=== PATIENT | female | born 1965 | race Caucasian/White ===

== ENCOUNTER → 2016-08-15 | Outpatient (CLI) | payer OTHER ==
--- NOTE | 2016-08-15 16:41 | BD ---
EXAMINATION TYPE: MG DEXA axial skeleton. DATE OF EXAM: 08/15/2016 4:28 PM COMPARISON: NONE CLINICAL HISTORY: 51-year-old female postmenopausal screening Height: 5 FT 6 IN Weight: 177 FRAX RISK QUESTIONS: Alcohol (3 or more units per day): YES Family History (Parent hip fracture): NO Glucocorticoids (More than 3mos): NO (Ex: prednisone, prednisolone, methylprednisolone, dexamethasone, and hydrocortisone). History of Fracture in Adulthood: YES Secondary Osteoporosis: 1. Type 1 Diabetes: NO 2. Hyperthyroidism: NO 3. Menopause before 45: AGE 50 4. Malnutrition: NO 5. Chronic liver disease: NO Rheumatoid Arthritis: NO Current Tobacco Use: YES RISK FACTORS HISTORY OF: Surgery to Spine/Hip(right/left)/Wrist (right/left): LUMBAR SURG X2 When: 2008 Smoke tobacco: YES Drink Alcohol: YES Active: YES Postmenopausal woman: AGE 50 MEDICATIONS: Additional Medications: VIT B , VIT D , FOLIC ACID, LISINOPRIL, CELEXA, Additional History: EXAM MEASUREMENTS: Bone mineral densitometry was performed using the ZENTICKET System. Bone mineral density as measured about the Lumbar spine is: ----- L1-L4(G/cm2): 1.355 T Score Values are as follows: ----- L2: 1.0 ----- L3: 1.6 ----- L4: 2.5 ----- L1-L4: 1.5 BASELINE Bone mineral density about the R hip (g/cm2): 1.048 Bone mineral density about the L hip (g/cm2): 1.068 T Score values are as follows: -----R Neck: 0.1 -----L Neck: 0.2 -----R Intertrochanter: -0.1 -----L Intertrochanter: 0.8 BASELINE IMPRESSION: Normal (Values between +1 and -1 indicate normal bone mass) Rescreen in 5 years. NOTE: T-SCORE=SD OF THE YOUNG ADULT MEAN.
--- NOTE | 2016-08-18 11:23 | MM ---
Reason for exam: screening (asymptomatic). Last mammogram was performed 1 year and 8 months ago. History: Patient is postmenopausal. Physical Findings: A clinical breast exam by your physician is recommended on an annual basis and results should be correlated with mammographic findings. MG Screening Mammo w CAD Bilateral CC and MLO view(s) were taken. Prior study comparison: December 04, 2014, bilateral MG screening mammo w CAD. The breast tissue is heterogeneously dense. This may lower the sensitivity of mammography. No significant changes when compared with prior studies. ASSESSMENT: Benign, BI-RAD 2 RECOMMENDATION: Routine screening mammogram of both breasts in 1 year.
== END | disposition home or self-care (01) ==
LOC: RADMAMWWP 15:31
PROVIDERS: ATTEND Internal Medicine
DX: Z12.31 Encounter for screening mammogram for malignant neoplasm of breast (principal); N95.1 Menopausal and female climacteric states
CPT/HCPCS: 77080; G0202

== ENCOUNTER 2017-10-22 22:28 | Emergency (ER) | payer OTHER ==
[2017-10-22 22:42] VITALS: RESP 18
[2017-10-22] MEDS ORDERED: SODIUM CHLORIDE 0.9% 1,000 ML IV STA ×2 (23:36)
[2017-10-22 23:47] LABS: Basophils % (A) 1 %; Eosinophils # (A) 0.1 k/uL (0-0.7); Eosinophils % (A) 1 %; HCT 39.3 % (34.0-46.0); HGB 13.1 gm/dL (11.4-16.0); Lymphocytes # (A) 1.7 k/uL (1.0-4.8); Lymphocytes % (A) 34 %; MCH 33.6 pg (25.0-35.0); MCHC 33.2 g/dL (31.0-37.0); MCV 101.2 fL (80.0-100.0); Mean Platelet Volume 7.7; Monocytes # (A) 0.4 k/uL (0-1.0); Monocytes % (A) 8 %; Neutrophils # (A) 2.6 k/uL (1.3-7.7); Neutrophils % (A) 54 %; Platelet Count 143 k/uL (150-450); RBC 3.89 m/uL (3.80-5.40); RDW 12.7 % (11.5-15.5); WBC 4.8 k/uL (3.8-10.6)
[2017-10-22 23:52] LABS: Appearance,Urine Clear (Clear); Bilirubin,Urine Negative (Negative); Blood,Urine Negative (Negative); Color,Urine Colorless; Glucose,Urine (UA) Negative (Negative); Ketones,Urine Negative (Negative); Leukocyte Esterase,Urine Negative (Negative); Nitrite,Urine Negative (Negative); PH, Urine 5.5 (5.0-8.0); Protein,Urine Negative (Negative); Specific Gravity,Urine 1.002 (1.001-1.035); Urobilinogen,Urine <2.0 mg/dL (<2.0)
[2017-10-22 23:55] LABS: ALT 68 U/L (9-52); AST 89 U/L (14-36); Albumin 4.5 g/dL (3.5-5.0); Alkaline Phosphatase 63 U/L (38-126); Amylase <30 U/L (30-110); Anion Gap 16 mmol/L; Blood Urea Nitrogen 3 mg/dL (7-17); Calcium 9.4 mg/dL (8.4-10.2); Carbon Dioxide 22 mmol/L (22-30); Chloride 95 mmol/L (98-107); Glucose 95 mg/dL (74-99); Lipase 43 U/L (23-300); Potassium 4.3 mmol/L (3.5-5.1); Sodium 133 mmol/L (137-145); Total Bilirubin 0.3 mg/dL (0.2-1.3); Total Protein 6.8 g/dL (6.3-8.2)
[2017-10-22 23:56] LABS: Partial Thromboplastin Time 22.8 sec (22.0-30.0); Prothrombin Time 10.1 sec (9.0-12.0)
--- NOTE | 2017-10-23 00:17 | XR ---
EXAMINATION TYPE: XR KUB DATE OF EXAM: 10/23/2017 COMPARISON: NONE HISTORY: Abdominal pain TECHNIQUE: 2 views FINDINGS: There is no sign of intestinal obstruction or pneumoperitoneum. Fecal pattern is normal. Th ere are no pathologic calcifications over the kidneys. Lung bases are clear. IMPRESSION: Nonacute abdomen.
--- NOTE | 2017-10-23 00:21 | ED ---
Abdominal Pain HPI - General Chief Complaint: Abdominal Pain Stated Complaint: ABD PAIN Time Seen by Provider: 10/22/17 23:21 Source: patient, RN notes reviewed, old records reviewed Mode of arrival: EMS Limitations: no limitations - History of Present Illness Initial Comments: This patient is a 52 year female wiht ETOH abuse presents to ED for CC of abdominal bloating, pain, and morning vomiting. Patient reports that she has had these symptoms for 2 months. She arrives after drinking beer and is intoxivated. She arrived via EMS. Patient reports she tries to work out, but is unable to get her abdomen to be flat. - Related Data Home Medications Medication Instructions Recorded Confirmed Cyanocobalamin [Vitamin B-12] 1,000 mcg PO DAILY 10/05/13 10/22/17 Multivitamins, Thera [Multivitamin 1 tab PO DAILY 10/05/13 10/22/17 (formulary)] Lisinopril [Zestril] 20 mg PO DAILY 04/11/15 10/22/17 Cholecalciferol [Vitamin D3] 1,000 unit PO DAILY 07/30/15 10/22/17 HYDROcodone/APAP 10-325MG [[place] 1 tab PO BID PRN 04/07/16 10/22/17 10-325] Omeprazole 20 mg PO AC-BRKFST 04/07/16 10/22/17 Aspirin [Adult Low Dose Aspirin EC] 81 mg PO DAILY 10/22/17 10/22/17 Thiamine [Vitamin B-1] 100 mg PO DAILY 10/22/17 10/22/17 Previous Rx's Medication Instructions Recorded Omeprazole 40 mg PO DAILY #15 capsule. 10/23/17 Ondansetron Odt [Zofran Odt] 4 mg PO Q8HR PRN #12 tab 10/23/17 Allergies Allergy/AdvReac Type Severity Reaction Status Date / Time Penicillins Allergy Rash/Hives Verified 10/22/17 23:00 Review of Systems ROS Statement: Those systems with pertinent positive or pertinent negative responses have been documented in the HPI. ROS Other: All systems not noted in ROS Statement are negative. Past Medical History Past Medical History: GERD/Reflux, Hypertension Additional Past Medical History / Comment(s): hx anemia, MIGRAINES, FX LT ANKLE( CASTED NO SX), CHRONIC BACK PAIN, IBS History of Any Multi-Drug Resistant Organisms: None Reported Past Surgical History: Back Surgery, Section, Cholecystectomy, Tubal Ligation Additional Past Surgical History / Comment(s): LAMINECTOMY X2. PAIN CLINIC PROCEDURES, D&C Past Anesthesia/Blood Transfusion Reactions: Previous Problems w/ Anesthesia, Motion Sickness, Postoperative Nausea & Vomiting (PONV) Additional Past Anesthesia/Blood Transfusion Reaction / Comment(s): Migraines after pain procedures. Difficulty waking up after anesthesia. Past Psychological History: Anxiety, Depression Smoking Status: Current some day smoker Past Alcohol Use History: Abuse, Daily Past Drug Use History: None Reported - Past Family History Father Additional Family Medical History / Comment(s): was alcoholic- from complications of drinking. Mother Family Medical History: Cancer Additional Family Medical History / Comment(s): kidney and liver cancer, depression,smoker General Exam - General Exam Comments Initial Comments: This patient is a 52 year old female, no distress. Limitations: no limitations General appearance: alert, in no apparent distress Head exam: Present: atraumatic, normocephalic, normal inspection Eye exam: Present: normal appearance, PERRL, EOMI. Absent: scleral icterus, conjunctival injection, periorbital swelling ENT exam: Present: normal exam, mucous membranes moist Neck exam: Present: normal inspection. Absent: tenderness, meningismus, lymphadenopathy Respiratory exam: Present: normal lung sounds bilaterally. Absent: respiratory distress, wheezes, rales, rhonchi, stridor Cardiovascular Exam: Present: regular rate, normal rhythm, normal heart sounds. Absent: systolic murmur, diastolic murmur, rubs, gallop, clicks GI/Abdominal exam: Present: soft, normal bowel sounds, hernia (Ventral hernia visible when patient does abomdinal flexion. ). Absent: distended, tenderness, guarding, rebound, rigid Extremities exam: Present: normal inspection, full ROM, normal capillary refill. Absent: tenderness, pedal edema, joint swelling, calf tenderness Back exam: Present: normal inspection Neurological exam: Present: alert, oriented X3, CN II-XII intact Psychiatric exam: Present: normal affect, normal mood Skin exam: Present: warm, dry, intact, normal color. Absent: rash Course Vital Signs 10/22/17 10/22/17 10/23/17 22:35 23:55 01:18 Temperature 98.2 F 97.9 F 98.4 F Pulse Rate 87 82 61 Respiratory 18 18 18 Rate Blood Pressure 128/79 128/84 133/78 O2 Sat by Pulse 96 96 98 Oximetry 10/23/17 02:59 Temperature 97.4 F L Pulse Rate 93 Respiratory 18 Rate Blood Pressure 152/85 O2 Sat by Pulse 95 Oximetry Medical Decision Making - Medical Decision Making This is a 52 year old female with CC of abdominal bloating, vomting in morning, and distension. History of ETOH abuse. She has evidence of ventral hernia. Patient labs were showing evidence of elevated LFT consistent with ETOH abuse. Patient has no evidenc of acute abdomen on CT scan. Evidence of fatty liver disease. 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 Return parameters disucssed. Discussed PCP follow up. - Lab Data Result diagrams: 10/22/17 23:15 10/22/17 23:15 Lab Results 10/22/17 10/22/17 10/22/17 Range/Units 00:12 23:15 23:15 WBC 4.8 (3.8-10.6) k/uL RBC 3.89 (3.80-5.40) m/uL Hgb 13.1 (11.4-16.0) gm/dL Hct 39.3 (34.0-46.0) % MCV 101.2 H (80.0-100.0) fL MCH 33.6 (25.0-35.0) pg MCHC 33.2 (31.0-37.0) g/dL RDW 12.7 (11.5-15.5) % Plt Count 143 L (150-450) k/uL Neutrophils % 54 % Lymphocytes % 34 % Monocytes % 8 % Eosinophils % 1 % Basophils % 1 % Neutrophils # 2.6 (1.3-7.7) k/uL Lymphocytes # 1.7 (1.0-4.8) k/uL Monocytes # 0.4 (0-1.0) k/uL Eosinophils # 0.1 (0-0.7) k/uL Basophils # 0.0 (0-0.2) k/uL PT (9.0-12.0) sec INR (<1.2) APTT (22.0-30.0) sec Sodium 133 L (137-145) mmol/L Potassium 4.3 (3.5-5.1) mmol/L Chloride 95 L (98-107) mmol/L Carbon Dioxide 22 (22-30) mmol/L Anion Gap 16 mmol/L BUN 3 L (7-17) mg/dL Creatinine 0.50 L (0.52-1.04) mg/dL Est GFR (CKD-EPI)AfAm >90 (>60 ml/min/1.73 sqM) Est GFR (CKD-EPI)NonAf >90 (>60 ml/min/1.73 sqM) Glucose 95 (74-99) mg/dL Calcium 9.4 (8.4-10.2) mg/dL Total Bilirubin 0.3 (0.2-1.3) mg/dL AST 89 H (14-36) U/L ALT 68 H (9-52) U/L Alkaline Phosphatase 63 (38-126) U/L Total Protein 6.8 (6.3-8.2) g/dL Albumin 4.5 (3.5-5.0) g/dL Amylase <30 L (30-110) U/L Lipase 43 (23-300) U/L Urine Color Urine Appearance (Clear) Urine pH (5.0-8.0) Ur Specific Brave (1.001-1.035) Urine Protein (Negative) Urine Glucose (UA) (Negative) Urine Ketones (Negative) Urine Blood (Negative) Urine Nitrite (Negative) Urine Bilirubin (Negative) Urine Urobilinogen (<2.0) mg/dL Ur Leukocyte Esterase (Negative) Serum Alcohol 167 mg/dL 10/22/17 10/22/17 Range/Units 23:15 23:15 WBC (3.8-10.6) k/uL RBC (3.80-5.40) m/uL Hgb (11.4-16.0) gm/dL Hct (34.0-46.0) % MCV (80.0-100.0) fL MCH (25.0-35.0) pg MCHC (31.0-37.0) g/dL RDW (11.5-15.5) % Plt Count (150-450) k/uL Neutrophils % % Lymphocytes % % Monocytes % % Eosinophils % % Basophils % % Neutrophils # (1.3-7.7) k/uL Lymphocytes # (1.0-4.8) k/uL Monocytes # (0-1.0) k/uL Eosinophils # (0-0.7) k/uL Basophils # (0-0.2) k/uL PT 10.1 (9.0-12.0) sec INR 1.0 (<1.2) APTT 22.8 (22.0-30.0) sec Sodium (137-145) mmol/L Potassium (3.5-5.1) mmol/L Chloride (98-107) mmol/L Carbon Dioxide (22-30) mmol/L Anion Gap mmol/L BUN (7-17) mg/dL Creatinine (0.52-1.04) mg/dL Est GFR (CKD-EPI)AfAm (>60 ml/min/1.73 sqM) Est GFR (CKD-EPI)NonAf (>60 ml/min/1.73 sqM) Glucose (74-99) mg/dL Calcium (8.4-10.2) mg/dL Total Bilirubin (0.2-1.3) mg/dL AST (14-36) U/L ALT (9-52) U/L Alkaline Phosphatase (38-126) U/L Total Protein (6.3-8.2) g/dL Albumin (3.5-5.0) g/dL Amylase (30-110) U/L Lipase (23-300) U/L Urine Color Colorless Urine Appearance Clear (Clear) Urine pH 5.5 (5.0-8.0) Ur Specific Brave 1.002 (1.001-1.035) Urine Protein Negative (Negative) Urine Glucose (UA) Negative (Negative) Urine Ketones Negative (Negative) Urine Blood Negative (Negative) Urine Nitrite Negative (Negative) Urine Bilirubin Negative (Negative) Urine Urobilinogen <2.0 (<2.0) mg/dL Ur Leukocyte Esterase Negative (Negative) Serum Alcohol mg/dL - Radiology Data Radiology results: report reviewed CT shows evidence of fatty infiltration of liver. No smalls obstruction. Previous surgery on right colon. No acute abdomen and pelvis. No constipation. Disposition Clinical Impression: Ventral hernia, Elevated ETOH level, Gastritis Disposition: HOME SELF-CARE Condition: Good Instructions: Ventral Hernia (ED) Additional Instructions: Patient advised follow-up with primary care provider. Also follow-up with surgeon. Return to the emergency department if any alarming signs or symptoms occur. Prescriptions: Omeprazole 40 mg PO DAILY #15 capsule. Ondansetron Odt [Zofran Odt] 4 mg PO Q8HR PRN #12 tab PRN Reason: Nausea Is patient prescribed a controlled substance at d/c from ED?: No When asked, does pt state using other controlled substances?: No If prescribed controlled substance>3 days was MAPS reviewed?: No If opioid is for acute pain is fill amount 7 days or less?: No If Rx opioid, was Start Talking consent form obtained?: No Referrals: Laura Pierre MD [Primary Care Provider] - 1-2 days Time of Disposition: 01:16
[2017-10-23] MEDS ORDERED: LORazepam 1 MG TAB PO STA (01:40)
--- NOTE | 2017-10-23 02:43 | CT ---
EXAMINATION TYPE: CT abdomen pelvis w con DATE OF EXAM: 10/23/2017 COMPARISON: NONE HISTORY: ABD pain and distention, and constipation. CT DLP: 1422.50 mGycm Automated exposure control for dose reduction was used. TECHNIQUE: Helical acquisition of images was performed from the lung bases through the pelvis. CONTRAST: Performed without Oral Contrast and with IV Contrast, patient injected with 100 mL of Isovue 300. FINDINGS: Lung bases are clear of consolidation. There is no pleural effusion. There is fatty infiltration of t he liver. Liver shows no focal defect. Spleen pancreas appear normal. Gallbladder is absent. Bile everett ts are not dilated. There is no adrenal mass. Kidneys show satisfactory contrast opacification. There is no hydronephrosi s. Ureters are not dilated. There is no retroperitoneal adenopathy. Bladder distends smoothly. There is no pelvic mass. There is no ascites. I see no bony destructive process. There is no sign of free a ir. There are multiple surgical clips at the cecum or ascending colon. There is no evidence of a demarco l obstruction. IMPRESSION: FATTY INFILTRATION OF THE LIVER. NO EVIDENCE OF A BOWEL OBSTRUCTION. PREVIOUS SURGERY ON THE RIGHT CO PEPE. NO SIGN OF ACUTE ABDOMEN AND PELVIS. No evidence of constipation.
[2017-10-23 03:00] VITALS: BP 152/85; PULSE 93; TEMP 97.4
== END 2017-10-23 03:11 | disposition home or self-care (01) ==
LOC: EC 22:28
DX: K29.70 Gastritis, unspecified, without bleeding (principal); K43.9 Ventral hernia without obstruction or gangrene; R78.0 Finding of alcohol in blood; K76.0 Fatty (change of) liver, not elsewhere classified; R79.89 Other specified abnormal findings of blood chemistry; I10 Essential (primary) hypertension; K21.9 Gastro-esophageal reflux disease without esophagitis; G89.29 Other chronic pain; F17.200 Nicotine dependence, unspecified, uncomplicated; Z79.82 Long term (current) use of aspirin; Z79.899 Other long term (current) drug therapy; Z88.0 Allergy status to penicillin; Z90.49 Acquired absence of other specified parts of digestive tract; Z81.1 Family history of alcohol abuse and dependence; Z83.79 Family history of other diseases of the digestive system
CPT/HCPCS: 36415; 80053; 82150; 83690; 85025; 85610; 85730; 81003; 80320; 74018; 74177; 99285; 96360; 96361 ×2; Q9967

== ENCOUNTER 2017-12-03 10:47 | Inpatient (IN) | payer OTHER ==
[2017-12-03] MEDS ORDERED: SODIUM CHLORIDE 0.9% 1,000 ML IV STA ×2 (10:52→13:00)
[2017-12-03] MEDS ORDERED: ONDANSETRON 4 MG/2 ML VIAL IVP STA (10:52)
[2017-12-03] MEDS ORDERED: PANTOPRAZOLE 40 MG/10 ML VIAL IVP STA (10:52)
[2017-12-03 11:37] LABS: ALT 207 U/L (9-52); AST 537 U/L (14-36); Albumin 3.8 g/dL (3.5-5.0); Alkaline Phosphatase 178 U/L (38-126); Anion Gap 17 mmol/L; Blood Urea Nitrogen 3 mg/dL (7-17); Calcium 8.9 mg/dL (8.4-10.2); Carbon Dioxide 17 mmol/L (22-30); Chloride 98 mmol/L (98-107); Glucose 106 mg/dL (74-99); Magnesium 1.1 mg/dL (1.6-2.3); Phosphorus 2.7 mg/dL (2.5-4.5); Potassium 3.1 mmol/L (3.5-5.1); Sodium 132 mmol/L (137-145); Total Bilirubin 2.4 mg/dL (0.2-1.3); Total Protein 6.2 g/dL (6.3-8.2)
[2017-12-03 11:52] LABS: Basophils % (A) 0 %; Eosinophils # (A) 0.1 k/uL (0-0.7); Eosinophils % (A) 1 %; HCT 35.5 % (34.0-46.0); HGB 12.1 gm/dL (11.4-16.0); Lymphocytes # (A) 0.7 k/uL (1.0-4.8); Lymphocytes % (A) 14 %; MCH 34.6 pg (25.0-35.0); MCHC 34.1 g/dL (31.0-37.0); MCV 101.5 fL (80.0-100.0); Macrocytosis Slight; Mean Platelet Volume 9.7; Monocytes # (A) 0.4 k/uL (0-1.0); Monocytes % (A) 8 %; Neutrophils # (A) 3.8 k/uL (1.3-7.7); Neutrophils % (A) 76 %; RDW 13.7 % (11.5-15.5)
[2017-12-03 11:57] LABS: Creatine Kinase 738 U/L (30-135)
--- NOTE | 2017-12-03 12:04 | ED ---
General Adult HPI - General Chief complaint: Abdominal Pain Stated complaint: nausea/vomiting Time Seen by Provider: 12/03/17 10:48 Source: patient, EMS Mode of arrival: EMS Limitations: no limitations - Related Data Home Medications Medication Instructions Recorded Confirmed HYDROcodone/APAP 10-325MG [[place] 1 tab PO Q8H PRN 04/07/16 12/03/17 10-325] Aspirin [Adult Low Dose Aspirin EC] 81 mg PO DAILY 10/22/17 12/03/17 Thiamine [Vitamin B-1] 100 mg PO DAILY 10/22/17 12/03/17 Atenolol [Tenormin] 25 mg PO DAILY 12/03/17 12/03/17 Cholecalciferol (Vitamin D3) 2,000 unit PO DAILY 12/03/17 12/03/17 [Vitamin D3] Dicyclomine [Bentyl] 20 mg PO Q12H PRN 12/03/17 12/03/17 Ferrous Sulfate [Feosol] 325 mg PO DAILY 12/03/17 12/03/17 Folic Acid 1 mg PO DAILY 12/03/17 12/03/17 Ondansetron HCl [Zofran] 4 mg PO Q8H PRN 12/03/17 12/03/17 Simvastatin [Zocor] 20 mg PO HS 12/03/17 12/03/17 Venlafaxine HCl [Effexor XR] 75 mg PO DAILY 12/03/17 12/03/17 Allergies Allergy/AdvReac Type Severity Reaction Status Date / Time Penicillins Allergy Rash/Hives Verified 12/03/17 11:06 Review of Systems ROS Statement: Those systems with pertinent positive or pertinent negative responses have been documented in the HPI. ROS Other: All systems not noted in ROS Statement are negative. Past Medical History Past Medical History: GERD/Reflux, Hypertension Additional Past Medical History / Comment(s): hx anemia, MIGRAINES, FX LT ANKLE( CASTED NO SX), CHRONIC BACK PAIN, IBS History of Any Multi-Drug Resistant Organisms: None Reported Past Surgical History: Back Surgery, Section, Cholecystectomy, Tubal Ligation Additional Past Surgical History / Comment(s): LAMINECTOMY X2. PAIN CLINIC PROCEDURES, D&C Past Anesthesia/Blood Transfusion Reactions: Previous Problems w/ Anesthesia, Motion Sickness, Postoperative Nausea & Vomiting (PONV) Additional Past Anesthesia/Blood Transfusion Reaction / Comment(s): Migraines after pain procedures. Difficulty waking up after anesthesia. Past Psychological History: Anxiety, Depression Smoking Status: Current some day smoker Past Alcohol Use History: Abuse, Daily Past Drug Use History: None Reported - Past Family History Father Additional Family Medical History / Comment(s): was alcoholic- from complications of drinking. Mother Family Medical History: Cancer Additional Family Medical History / Comment(s): kidney and liver cancer, depression,smoker General Exam Limitations: no limitations Course Vital Signs 12/03/17 10:52 Temperature 98.3 F Pulse Rate 104 H Respiratory 18 Rate Blood Pressure 137/90 O2 Sat by Pulse 100 Oximetry EKG Findings - EKG Comments: EKG Findings:: EKG shows sinus tachycardia rate 122, RI 140, QRS 76, QTc 453 Medical Decision Making - Lab Data Result diagrams: 12/03/17 11:10 12/03/17 11:10 Lab Results 12/03/17 12/03/17 12/03/17 Range/Units 11:10 11:10 11:10 WBC 5.0 (3.8-10.6) k/uL RBC 3.50 L (3.80-5.40) m/uL Hgb 12.1 (11.4-16.0) gm/dL Hct 35.5 (34.0-46.0) % MCV 101.5 H (80.0-100.0) fL MCH 34.6 (25.0-35.0) pg MCHC 34.1 (31.0-37.0) g/dL RDW 13.7 (11.5-15.5) % Plt Count 53 L D (150-450) k/uL Neutrophils % 76 % Lymphocytes % 14 % Monocytes % 8 % Eosinophils % 1 % Basophils % 0 % Neutrophils # 3.8 (1.3-7.7) k/uL Lymphocytes # 0.7 L (1.0-4.8) k/uL Monocytes # 0.4 (0-1.0) k/uL Eosinophils # 0.1 (0-0.7) k/uL Basophils # 0.0 (0-0.2) k/uL Manual Slide Review Performed Macrocytosis Slight Sodium 132 L (137-145) mmol/L Potassium 3.1 L (3.5-5.1) mmol/L Chloride 98 (98-107) mmol/L Carbon Dioxide 17 L (22-30) mmol/L Anion Gap 17 mmol/L BUN 3 L (7-17) mg/dL Creatinine 0.50 L (0.52-1.04) mg/dL Est GFR (CKD-EPI)AfAm >90 (>60 ml/min/1.73 sqM) Est GFR (CKD-EPI)NonAf >90 (>60 ml/min/1.73 sqM) Glucose 106 H (74-99) mg/dL Plasma Lactic Acid Michel (0.7-2.0) mmol/L Calcium 8.9 (8.4-10.2) mg/dL Phosphorus 2.7 (2.5-4.5) mg/dL Magnesium 1.1 L (1.6-2.3) mg/dL Total Bilirubin 2.4 H (0.2-1.3) mg/dL AST 537 H (14-36) U/L ALT 207 H (9-52) U/L Alkaline Phosphatase 178 H (38-126) U/L Total Creatine Kinase 738 H (30-135) U/L CK-MB (CK-2) 8.4 H* (0.0-2.4) ng/mL CK-MB (CK-2) Rel Index 1.1 Troponin I <0.012 (0.000-0.034) ng/mL Total Protein 6.2 L (6.3-8.2) g/dL Albumin 3.8 (3.5-5.0) g/dL 12/03/17 Range/Units 11:10 WBC (3.8-10.6) k/uL RBC (3.80-5.40) m/uL Hgb (11.4-16.0) gm/dL Hct (34.0-46.0) % MCV (80.0-100.0) fL MCH (25.0-35.0) pg MCHC (31.0-37.0) g/dL RDW (11.5-15.5) % Plt Count (150-450) k/uL Neutrophils % % Lymphocytes % % Monocytes % % Eosinophils % % Basophils % % Neutrophils # (1.3-7.7) k/uL Lymphocytes # (1.0-4.8) k/uL Monocytes # (0-1.0) k/uL Eosinophils # (0-0.7) k/uL Basophils # (0-0.2) k/uL Manual Slide Review Macrocytosis Sodium (137-145) mmol/L Potassium (3.5-5.1) mmol/L Chloride (98-107) mmol/L Carbon Dioxide (22-30) mmol/L Anion Gap mmol/L BUN (7-17) mg/dL Creatinine (0.52-1.04) mg/dL Est GFR (CKD-EPI)AfAm (>60 ml/min/1.73 sqM) Est GFR (CKD-EPI)NonAf (>60 ml/min/1.73 sqM) Glucose (74-99) mg/dL Plasma Lactic Acid Michel 3.2 H* (0.7-2.0) mmol/L Calcium (8.4-10.2) mg/dL Phosphorus (2.5-4.5) mg/dL Magnesium (1.6-2.3) mg/dL Total Bilirubin (0.2-1.3) mg/dL AST (14-36) U/L ALT (9-52) U/L Alkaline Phosphatase (38-126) U/L Total Creatine Kinase (30-135) U/L CK-MB (CK-2) (0.0-2.4) ng/mL CK-MB (CK-2) Rel Index Troponin I (0.000-0.034) ng/mL Total Protein (6.3-8.2) g/dL Albumin (3.5-5.0) g/dL Disposition Clinical Impression: Nausea vomiting and diarrhea, Dehydration, Hypomagnesemia, Hypokalemia Disposition: ADMITTED IP TO THIS HOSP Condition: Fair Is patient prescribed a controlled substance at d/c from ED?: No Referrals: Jesus Baumann MD [Primary Care Provider] - 1-2 days
[2017-12-03 12:09] LABS: Troponin I <0.012 ng/mL (0.000-0.034)
[2017-12-03 12:14] LABS: Creatine Kinase MB 8.4 ng/mL (0.0-2.4)
[2017-12-03 12:35] LABS: Platelet Count 53 k/uL (150-450)
[2017-12-03] MEDS ORDERED: LORazepam 2 MG/ML INJ IV STA (12:59)
[2017-12-03] MEDS ORDERED: SODIUM CHLORIDE 0.9% 500 ML IV STA (13:00)
[2017-12-03 13:08] LABS: Appearance,Urine Cloudy (Clear); Bilirubin,Urine 1+ (Negative); Blood,Urine Trace (Negative); Color,Urine Orange; Glucose,Urine (UA) Negative (Negative); Ketones,Urine 2+ (Negative); Leukocyte Esterase,Urine Small (Negative); Mucus,Urine Many /hpf; Nitrite,Urine Negative (Negative); Protein,Urine 1+ (Negative); RBC,Urine 4 /hpf (0-5); Squamous Epithelial Cell,Urine 10 /hpf (0-4); Urobilinogen,Urine >12.0 mg/dL (<2.0); WBC,Urine 2 /hpf (0-5)
[2017-12-03] MEDS ORDERED: LORazepam 2 MG/ML INJ IV PRN ×3 (13:32)
[2017-12-03] MEDS ORDERED: THIAMINE 100 MG/ML 2 ML VIAL IM STA (13:32)
[2017-12-03] MEDS: MAGNESIUM SULFATE-D5W PMX 1 GM in DEXTROSE/WATER 1 100ML.BAG IVPB SCH ×4 (13:47→17:52)
[2017-12-03] MEDS: POTASSIUM CHLORIDE 20 MEQ in WATER FOR INJECTION 1 100ML.BAG IVPB SCH ×2 (13:55→16:01)
[2017-12-03] MEDS ORDERED: HYDROcodone/APAP 10-325MG 1 EACH TAB PO PRN (15:17)
--- NOTE | 2017-12-03 16:05 | P.HPIM ---
History of Present Illness H&P Date: 12/03/17 This is a 52-year-old patient resented to the emergency department with nausea, vomiting and abdominal pain has been occurring for a week. Has a known medical history of GERD, hypertension, anemia, chronic back pain, IBS, cholecystectomy, anxiety, depression, nicotine dependence and EtOH abuse. Patient states her last drink was approximately 2 days ago. Patient states she has been just very tired and has had little appetite. EKG showing sinus tachycardic. Patient's potassium 3.1, sodium 132 and magnesium level I.1. Magnesium and potassium replacement have been ordered per emergency room. AST 537, ALT 207 and total Bilirubin 2.4. Patient to remain NPO. GI consult has been placed. Amylase and lipase has been ordered. Urinary analysis completed showing a small amount of Leukocyte Estrace. Repeat urinalysis for tomorrow has been ordered along with comp and CBC. Platelets 53 patient is a known ETOH , anticoagulation held at this time. Denies chest pain or shortness of breath at this time. Patient denies any urinary frequency urgency. At this moment patient does not feel nauseated and has not had any nausea of emesis. Patient denies any bleeding present in stool or emesis. Review of Systems please refer to HPI otherwise unremarkable Past Medical History Past Medical History: GERD/Reflux, Hypertension Additional Past Medical History / Comment(s): hx anemia, MIGRAINES, FX LT ANKLE( CASTED NO SX), CHRONIC BACK PAIN, IBS History of Any Multi-Drug Resistant Organisms: None Reported Past Surgical History: Back Surgery, Section, Cholecystectomy, Tubal Ligation Additional Past Surgical History / Comment(s): LAMINECTOMY X2. PAIN CLINIC PROCEDURES, D&C Past Anesthesia/Blood Transfusion Reactions: Previous Problems w/ Anesthesia, Motion Sickness, Postoperative Nausea & Vomiting (PONV) Additional Past Anesthesia/Blood Transfusion Reaction / Comment(s): Migraines after pain procedures. Difficulty waking up after anesthesia. Past Psychological History: Anxiety, Depression Smoking Status: Current some day smoker Past Alcohol Use History: Abuse, Daily Past Drug Use History: None Reported - Past Family History Father Additional Family Medical History / Comment(s): was alcoholic- from complications of drinking. Mother Family Medical History: Cancer Additional Family Medical History / Comment(s): kidney and liver cancer, depression,smoker Medications and Allergies Home Medications Medication Instructions Recorded Confirmed Type HYDROcodone/APAP 10-325MG [[place] 1 tab PO Q8H PRN 04/07/16 12/03/17 History 10-325] Aspirin [Adult Low Dose Aspirin EC] 81 mg PO DAILY 10/22/17 12/03/17 History Thiamine [Vitamin B-1] 100 mg PO DAILY 10/22/17 12/03/17 History Atenolol [Tenormin] 25 mg PO DAILY 12/03/17 12/03/17 History Cholecalciferol (Vitamin D3) 2,000 unit PO DAILY 12/03/17 12/03/17 History [Vitamin D3] Dicyclomine [Bentyl] 20 mg PO Q12H PRN 12/03/17 12/03/17 History Ferrous Sulfate [Feosol] 325 mg PO DAILY 12/03/17 12/03/17 History Folic Acid 1 mg PO DAILY 12/03/17 12/03/17 History Ondansetron HCl [Zofran] 4 mg PO Q8H PRN 12/03/17 12/03/17 History Simvastatin [Zocor] 20 mg PO HS 12/03/17 12/03/17 History Venlafaxine HCl [Effexor XR] 75 mg PO DAILY 12/03/17 12/03/17 History Allergies Allergy/AdvReac Type Severity Reaction Status Date / Time Penicillins Allergy Rash/Hives Verified 12/03/17 11:06 Physical Exam Vitals: Vital Signs Temp Pulse Pulse Resp BP BP Pulse Ox 12/03/17 15:10 99.3 F 122 H 18 133/79 97 12/03/17 14:38 98.5 F 12/03/17 14:01 114 H 18 144/82 97 12/03/17 13:20 97.6 F 129 H 18 133/92 98 12/03/17 10:52 98.3 F 104 H 18 137/90 100 Intake and Output 12/03/17 12/03/17 12/03/17 06:59 14:59 22:59 Other: Weight 81.647 kg Head normocephalic Neck supple Lungs clear to auscultation bilaterally no wheezing or crackles Heart regular rate and rhythm S1-S2, no rub or gallop Abdomen is soft nontender nondistended positive bowel sounds no hepatosplenomegaly Extremities no edema Neuro alert and orientated to 3 Results CBC & Chem 7: 12/03/17 11:10 12/03/17 11:10 Labs: Abnormal Lab Results - Last 24 Hours (Table) 12/03/17 12/03/17 12/03/17 Range/Units 11:10 11:10 11:10 RBC 3.50 L (3.80-5.40) m/uL MCV 101.5 H (80.0-100.0) fL Plt Count 53 L D (150-450) k/uL Lymphocytes # 0.7 L (1.0-4.8) k/uL Sodium 132 L (137-145) mmol/L Potassium 3.1 L (3.5-5.1) mmol/L Carbon Dioxide 17 L (22-30) mmol/L BUN 3 L (7-17) mg/dL Creatinine 0.50 L (0.52-1.04) mg/dL Glucose 106 H (74-99) mg/dL Plasma Lactic Acid Michel (0.7-2.0) mmol/L Magnesium 1.1 L (1.6-2.3) mg/dL Total Bilirubin 2.4 H (0.2-1.3) mg/dL AST 537 H (14-36) U/L ALT 207 H (9-52) U/L Alkaline Phosphatase 178 H (38-126) U/L Total Creatine Kinase 738 H (30-135) U/L CK-MB (CK-2) 8.4 H* (0.0-2.4) ng/mL Total Protein 6.2 L (6.3-8.2) g/dL Urine Appearance (Clear) Urine Protein (Negative) Urine Ketones (Negative) Urine Blood (Negative) Urine Bilirubin (Negative) Ur Leukocyte Esterase (Negative) Ur Squamous Epith Cells (0-4) /hpf Urine Mucus (None) /hpf 12/03/17 12/03/17 Range/Units 11:10 12:27 RBC (3.80-5.40) m/uL MCV (80.0-100.0) fL Plt Count (150-450) k/uL Lymphocytes # (1.0-4.8) k/uL Sodium (137-145) mmol/L Potassium (3.5-5.1) mmol/L Carbon Dioxide (22-30) mmol/L BUN (7-17) mg/dL Creatinine (0.52-1.04) mg/dL Glucose (74-99) mg/dL Plasma Lactic Acid Michel 3.2 H* (0.7-2.0) mmol/L Magnesium (1.6-2.3) mg/dL Total Bilirubin (0.2-1.3) mg/dL AST (14-36) U/L ALT (9-52) U/L Alkaline Phosphatase (38-126) U/L Total Creatine Kinase (30-135) U/L CK-MB (CK-2) (0.0-2.4) ng/mL Total Protein (6.3-8.2) g/dL Urine Appearance Cloudy H (Clear) Urine Protein 1+ H (Negative) Urine Ketones 2+ H (Negative) Urine Blood Trace H (Negative) Urine Bilirubin 1+ H (Negative) Ur Leukocyte Esterase Small H (Negative) Ur Squamous Epith Cells 10 H (0-4) /hpf Urine Mucus Many H (None) /hpf Assessment and Plan Assessment: 1. Dehydration related to Nausea vomiting and diarrhea. Sodium 132, potassium 3.1 and magnesium 1.1. Magnesium and potassium replacement has been ordered per emergency room. Will monitor closely. Lactic acid 3.2.. Patient received 1.5 L in emergency room. Patient maintained on normal saline at 100. Amylase and lipase levels have been ordered. Keep nothing by mouth at this time. GI has been consulted 2. Elevated liver enzyme. AST 537 and ALT 207. Total bilirubin 2.4. Patient' s home Zocor has been held. GI has been consulted. Patient is a known EtOH. 3. Thrombocytopenia. Likely related to EtOH. No signs of active bleeding at this time. We'll hold off on any anticoagulation at this time. 4. Elevated lactic acid. Patient received 1.5 L of normal saline in the emergency room. Patient remains afebrile,white blood cell 5.0. continue normal saline at 100cc/hr 5. EtOH. Patient said last drink was 2 days ago. CIWA scale has been ordered. Continue thiamine. 6. History of anxiety and depression. Continue Effexor 7. Nicotine dependence. Nicotine patch has been ordered 8. History of hypertension 9. History of Irritable bowel syndrome. continue Bentyl 10. Chronic back pain. Continue home dose of [place] DVT prophylaxis SCDs due to low platelet count. GI prophylaxis Protonix. Time with Patient: Greater than 30 (Greater than 60% of the total time spent in counseling and coordination of care. I performed an examination of the patient and discussed their management with the Nurse Practitioner. I have reviewed the Nurse Practitioner's notes and agree with the documented findings and plan of care)
[2017-12-03 16:36] LABS: Amylase 42 U/L (30-110); Lipase 832 U/L (23-300)
[2017-12-03] MEDS: LORazepam 2 MG/ML INJ IV PRN (17:52)
[2017-12-03] MEDS: THIAMINE 100 MG TAB PO SCH (17:53)
[2017-12-03] MEDS: MORPHINE SULFATE 2 MG/ML SYRINGE IVP PRN (23:37)
[2017-12-04] MEDS: LORazepam 2 MG/ML INJ IV PRN ×4 (03:14→21:37)
[2017-12-04] MEDS: MORPHINE SULFATE 2 MG/ML SYRINGE IVP PRN ×5 (03:33→23:40)
[2017-12-04 06:30] LABS: Basophils % (A) 0 %; Eosinophils # (A) 0.1 k/uL (0-0.7); Eosinophils % (A) 3 %; HCT 29.8 % (34.0-46.0); Lymphocytes # (A) 0.8 k/uL (1.0-4.8); Lymphocytes % (A) 20 %; MCH 33.7 pg (25.0-35.0); MCHC 32.6 g/dL (31.0-37.0); MCV 103.2 fL (80.0-100.0); Macrocytosis Slight; Mean Platelet Volume 9.6; Monocytes # (A) 0.4 k/uL (0-1.0); Monocytes % (A) 9 %; Neutrophils # (A) 2.6 k/uL (1.3-7.7); Neutrophils % (A) 67 %; RBC 2.89 m/uL (3.80-5.40); RDW 13.6 % (11.5-15.5); WBC 3.9 k/uL (3.8-10.6)
[2017-12-04 06:44] LABS: ALT 157 U/L (9-52); AST 347 U/L (14-36); Albumin 2.9 g/dL (3.5-5.0); Alkaline Phosphatase 142 U/L (38-126); Anion Gap 5 mmol/L; Blood Urea Nitrogen 2 mg/dL (7-17); Calcium 7.8 mg/dL (8.4-10.2); Carbon Dioxide 27 mmol/L (22-30); Chloride 101 mmol/L (98-107); Glucose 119 mg/dL (74-99); Lipase 551 U/L (23-300); Potassium 3.2 mmol/L (3.5-5.1); Sodium 133 mmol/L (137-145); Total Bilirubin 2.4 mg/dL (0.2-1.3); Total Protein 5.3 g/dL (6.3-8.2)
[2017-12-04 07:01] LABS: Platelet Count 54 k/uL (150-450)
[2017-12-04 07:32] LABS: HGB 9.7 gm/dL (11.4-16.0)
[2017-12-04] MEDS ORDERED: Potassium Replacement Protocol 1 EACH MISC MISCELLANE PRN (08:09)
[2017-12-04] MEDS: CHOLECALCIFEROL 1,000 UNIT TAB PO SCH (08:37)
[2017-12-04] MEDS: POTASSIUM CHLORIDE 10 MEQ in WATER FOR INJECTION 1 100ML.BAG IVPB SCH ×4 (08:38→12:58)
[2017-12-04] MEDS: FERROUS SULFATE 325 MG TAB PO SCH (08:38)
[2017-12-04] MEDS: VENLAFAXINE HCL ER 75 MG CAP PO SCH (08:38)
[2017-12-04] MEDS: ATENOLOL 25 MG TAB PO SCH (08:38)
[2017-12-04] MEDS ORDERED: ENOXAPARIN 40 MG/0.4 ML SYRINGE SQ SCH (09:00)
[2017-12-04] MEDS ORDERED: PANTOPRAZOLE 40 MG/10 ML VIAL IVP SCH (09:00)
[2017-12-04] MEDS: NICOTINE 21MG/24HR PATCH TRANSDERM SCH (10:33)
[2017-12-04] MEDS: SODIUM CHLORIDE 0.9% 1,000 ML IV SCH ×3 (10:34→23:39)
--- NOTE | 2017-12-04 11:11 | P.PN ---
Subjective Progress Note Date: 12/04/17 This is a 52-year-old patient resented to the emergency department with nausea, vomiting and abdominal pain has been occurring for a week. Has a known medical history of GERD, hypertension, anemia, chronic back pain, IBS, cholecystectomy, anxiety, depression, nicotine dependence and EtOH abuse. Patient states her last drink was approximately 2 days ago. Patient states she has been just very tired and has had little appetite. EKG showing sinus tachycardic. Patient's potassium 3.1, sodium 132 and magnesium level I.1. Magnesium and potassium replacement have been ordered per emergency room. AST 537, ALT 207 and total Bilirubin 2.4. Patient to remain NPO. GI consult has been placed. Amylase and lipase has been ordered. Urinary analysis completed showing a small amount of Leukocyte Estrace. Repeat urinalysis for tomorrow has been ordered along with comp and CBC. Platelets 53 patient is a known ETOH , anticoagulation held at this time. Denies chest pain or shortness of breath at this time. Patient denies any urinary frequency urgency. At this moment patient does not feel nauseated and has not had any nausea of emesis. Patient denies any bleeding present in stool or emesis. 12/04/2017 patient is in bed stating she does feel improved from yesterday. Current lactic level 1.4. Amylase level 42, lipase is 832. GI services have been consulted for acute pancreatitis and elevated liver enzymes. AST 347 ALT 157, total Bilrubin 2.4 and alkaline phosphatase 142. Patient has remained nothing by mouth. IV fluids normal saline at 125. Magnesium level improved at 2.0. Potassium 3.2, potassium replacement has been ordered. Platelets remain low at 54. Patient denies chest pain or shortness of breath. Does report occasional nausea and vomiting. Awaiting GI consult. Objective - Vital Signs Vital signs: Vital Signs Temp 99.6 F 12/04/17 08:15 Pulse 115 H 12/04/17 08:15 Resp 16 12/04/17 08:15 BP 146/88 12/04/17 08:15 Pulse Ox 95 12/04/17 08:15 Intake & Output 12/03/17 12/04/17 12/04/17 18:59 06:59 18:59 Weight 81.647 kg 83.2 kg - Exam Head normocephalic Neck supple Lungs clear to auscultation bilaterally no wheezing or crackles Heart regular rate and rhythm S1-S2, no rub or gallop Abdomen is soft nontender nondistended positive bowel sounds no hepatosplenomegaly Extremities no edema Neuro alert and orientated to 3 - Labs CBC & Chem 7: 12/04/17 05:56 12/04/17 05:56 Labs: Abnormal Lab Results - Last 24 Hours (Table) 12/03/17 12/03/17 12/03/17 Range/Units 11:10 11:10 11:10 RBC 3.50 L (3.80-5.40) m/uL Hgb (11.4-16.0) gm/dL Hct (34.0-46.0) % MCV 101.5 H (80.0-100.0) fL Plt Count 53 L D (150-450) k/uL Lymphocytes # 0.7 L (1.0-4.8) k/uL Sodium 132 L (137-145) mmol/L Potassium 3.1 L (3.5-5.1) mmol/L Carbon Dioxide 17 L (22-30) mmol/L BUN 3 L (7-17) mg/dL Creatinine 0.50 L (0.52-1.04) mg/dL Glucose 106 H (74-99) mg/dL Plasma Lactic Acid Michel (0.7-2.0) mmol/L Calcium (8.4-10.2) mg/dL Magnesium 1.1 L (1.6-2.3) mg/dL Total Bilirubin 2.4 H (0.2-1.3) mg/dL AST 537 H (14-36) U/L ALT 207 H (9-52) U/L Alkaline Phosphatase 178 H (38-126) U/L Total Creatine Kinase 738 H (30-135) U/L CK-MB (CK-2) 8.4 H* (0.0-2.4) ng/mL Total Protein 6.2 L (6.3-8.2) g/dL Albumin (3.5-5.0) g/dL Lipase (23-300) U/L Urine Appearance (Clear) Urine Protein (Negative) Urine Ketones (Negative) Urine Blood (Negative) Urine Bilirubin (Negative) Ur Leukocyte Esterase (Negative) Ur Squamous Epith Cells (0-4) /hpf Urine Mucus (None) /hpf 12/03/17 12/03/17 12/03/17 Range/Units 11:10 12:27 15:56 RBC (3.80-5.40) m/uL Hgb (11.4-16.0) gm/dL Hct (34.0-46.0) % MCV (80.0-100.0) fL Plt Count (150-450) k/uL Lymphocytes # (1.0-4.8) k/uL Sodium (137-145) mmol/L Potassium (3.5-5.1) mmol/L Carbon Dioxide (22-30) mmol/L BUN (7-17) mg/dL Creatinine (0.52-1.04) mg/dL Glucose (74-99) mg/dL Plasma Lactic Acid Michel 3.2 H* (0.7-2.0) mmol/L Calcium (8.4-10.2) mg/dL Magnesium (1.6-2.3) mg/dL Total Bilirubin (0.2-1.3) mg/dL AST (14-36) U/L ALT (9-52) U/L Alkaline Phosphatase (38-126) U/L Total Creatine Kinase (30-135) U/L CK-MB (CK-2) (0.0-2.4) ng/mL Total Protein (6.3-8.2) g/dL Albumin (3.5-5.0) g/dL Lipase 832 H (23-300) U/L Urine Appearance Cloudy H (Clear) Urine Protein 1+ H (Negative) Urine Ketones 2+ H (Negative) Urine Blood Trace H (Negative) Urine Bilirubin 1+ H (Negative) Ur Leukocyte Esterase Small H (Negative) Ur Squamous Epith Cells 10 H (0-4) /hpf Urine Mucus Many H (None) /hpf 12/04/17 12/04/17 Range/Units 05:56 05:56 RBC 2.89 L (3.80-5.40) m/uL Hgb 9.7 L D (11.4-16.0) gm/dL Hct 29.8 L (34.0-46.0) % MCV 103.2 H (80.0-100.0) fL Plt Count 54 L (150-450) k/uL Lymphocytes # 0.8 L (1.0-4.8) k/uL Sodium 133 L (137-145) mmol/L Potassium 3.2 L (3.5-5.1) mmol/L Carbon Dioxide (22-30) mmol/L BUN 2 L (7-17) mg/dL Creatinine (0.52-1.04) mg/dL Glucose 119 H (74-99) mg/dL Plasma Lactic Acid Michel (0.7-2.0) mmol/L Calcium 7.8 L (8.4-10.2) mg/dL Magnesium (1.6-2.3) mg/dL Total Bilirubin 2.4 H (0.2-1.3) mg/dL AST 347 H (14-36) U/L ALT 157 H (9-52) U/L Alkaline Phosphatase 142 H (38-126) U/L Total Creatine Kinase (30-135) U/L CK-MB (CK-2) (0.0-2.4) ng/mL Total Protein 5.3 L (6.3-8.2) g/dL Albumin 2.9 L (3.5-5.0) g/dL Lipase 551 H (23-300) U/L Urine Appearance (Clear) Urine Protein (Negative) Urine Ketones (Negative) Urine Blood (Negative) Urine Bilirubin (Negative) Ur Leukocyte Esterase (Negative) Ur Squamous Epith Cells (0-4) /hpf Urine Mucus (None) /hpf Microbiology - Last 24 Hours (Table) 12/03/17 12:27 Urine Culture - Preliminary Urine,Voided Assessment and Plan Assessment: 1. Acute pancreatitis. Dehydration related to Nausea vomiting and diarrhea. Sodium 132, potassium 3.1 and magnesium 1.1. Magnesium and potassium replacement has been ordered per emergency room. Will monitor closely. Lactic acid 3.2.. Patient received 1.5 L in emergency room. Keep nothing by mouth at this time. GI has been consulted. Lipase 832, amylase 42. Rocephin IV antibiotics ordered. IV fluid remaining at 125. Magnesium improving at 2.0. Potassium 3.2, placement has been ordered. 2. Elevated liver enzyme. AST 537 and ALT 207. Total bilirubin 2.4. Patient' s home Zocor has been held. GI has been consulted. Patient is a known EtOH. AST 347, ALT 157 and total bilirubin 2.4. 3. Thrombocytopenia. Likely related to EtOH. No signs of active bleeding at this time. We'll hold off on any anticoagulation at this time. Platelet level 54 4. Elevated lactic acid. Patient received 1.5 L of normal saline in the emergency room. Patient remains afebrile,white blood cell 5.0. Lactic acid 1.4. 5. EtOH. Patient said last drink was 2 days ago. CIWA scale has been ordered. Continue thiamine. Patient requesting social work services for possible resources for alcohol abuse. 6. History of anxiety and depression. Continue Effexor 7. Nicotine dependence. Nicotine patch has been ordered 8. History of hypertension 9. History of Irritable bowel syndrome. continue Bentyl 10. Chronic back pain. [place] has been held due to elevated liver enzymes morphine has been ordered for pain control 11. Sinus tachycardia likely related to dehydration. EKG completed emergency room showing sinus tachycardia. Troponin level negative. Home atenolol dose has been ordered DVT prophylaxis SCDs due to low platelet count. GI prophylaxis Protonix. I performed an examination of the patient and discussed their management with the Nurse Practitioner. I have reviewed the Nurse Practitioner's notes and agree with the documented findings and plan of care
[2017-12-04 12:20] LABS: Appearance,Urine Clear (Clear); Bilirubin,Urine Negative (Negative); Blood,Urine Negative (Negative); Color,Urine Yellow; Glucose,Urine (UA) Negative (Negative); Ketones,Urine 1+ (Negative); Leukocyte Esterase,Urine Negative (Negative); Nitrite,Urine Negative (Negative); PH, Urine 6.5 (5.0-8.0); Protein,Urine Negative (Negative); Specific Gravity,Urine 1.006 (1.001-1.035)
[2017-12-04] MEDS: ONDANSETRON 4 MG/2 ML VIAL IVP PRN (12:20)
[2017-12-04] MEDS: cefTRIAXone IN SWFI 1,000 MG/10 ML SYRINGE IVP SCH (12:58)
[2017-12-04] MEDS: THIAMINE 100 MG TAB PO SCH ×2 (12:59→18:11)
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
--- NOTE | 2017-12-04 16:19 | US ---
EXAMINATION TYPE: US abdomen limited DATE OF EXAM: 12/04/2017 COMPARISON: CT, US CLINICAL HISTORY: pancreatitis hepatitis. ABD pain, pancreatitis, hepatitis EXAM MEASUREMENTS: Liver Length: 24.0 cm CBD: 0.5 cm Right Kidney: 13.2 x 5.1 x 6.2 cm Pancreas: wnl, tail obscured by overlying bowel gas Liver: Enlarged, heterogeneous throughout with hyperechogenicity. No focal lesion identified on toda y's examination. Hyperechogenicity does limit evaluation for hepatic masses. Gallbladder: Surgically absent Evidence for sonographic Montoya's sign: No CBD: wnl Right Kidney: wnl, lower pole gassed out IMPRESSION: 1. Pancreas is obscured by overlying bowel gas and cannot be evaluated. If there is further concern f or complicating process of the patient's known pancreatitis CT abdomen could be performed. 2. Hyperechoic echotexture of the hepatic parenchyma that may relate to the patient's underlying know n hepatocellular disease and or hepatic steatosis.
[2017-12-04 20:14] LABS: Hepatitis A Antibody IgM Non-Reactive (Non-Reactive); Hepatitis B Core IgM Non-Reactive (Non-Reactive)
[2017-12-05] MEDS: LORazepam 2 MG/ML INJ IV PRN ×4 (03:06→20:42)
[2017-12-05 06:08] LABS: INR 1.3 (<1.2); Prothrombin Time 11.9 sec (9.0-12.0)
[2017-12-05] MEDS: MORPHINE SULFATE 2 MG/ML SYRINGE IVP PRN ×3 (06:10→21:16)
[2017-12-05 06:16] LABS: ALT 147 U/L (9-52); AST 269 U/L (14-36); Albumin 3.1 g/dL (3.5-5.0); Alkaline Phosphatase 142 U/L (38-126); Anion Gap 7 mmol/L; Basophils % (A) 0 %; Blood Urea Nitrogen <2 mg/dL (7-17); Calcium 8.5 mg/dL (8.4-10.2); Carbon Dioxide 28 mmol/L (22-30); Chloride 99 mmol/L (98-107); Eosinophils # (A) 0.3 k/uL (0-0.7); Eosinophils % (A) 7 %; Glucose 99 mg/dL (74-99); HCT 32.7 % (34.0-46.0); HGB 10.6 gm/dL (11.4-16.0); Lymphocytes % (A) 25 %; MCH 34.5 pg (25.0-35.0); MCHC 32.4 g/dL (31.0-37.0); MCV 106.4 fL (80.0-100.0); Macrocytosis Moderate; Mean Platelet Volume 10.1; Monocytes # (A) 0.4 k/uL (0-1.0); Monocytes % (A) 9 %; Neutrophils # (A) 2.4 k/uL (1.3-7.7); Neutrophils % (A) 58 %; Potassium 3.3 mmol/L (3.5-5.1); RBC 3.08 m/uL (3.80-5.40); RDW 14.5 % (11.5-15.5); Sodium 134 mmol/L (137-145); Total Bilirubin 1.4 mg/dL (0.2-1.3); Total Protein 5.5 g/dL (6.3-8.2); WBC 4.1 k/uL (3.8-10.6)
[2017-12-05 06:18] LABS: Platelet Count 64 k/uL (150-450)
[2017-12-05] MEDS: cefTRIAXone IN SWFI 1,000 MG/10 ML SYRINGE IVP SCH (08:48)
[2017-12-05] MEDS: PANTOPRAZOLE 40 MG TABLET PO SCH (08:49)
[2017-12-05] MEDS: VENLAFAXINE HCL ER 75 MG CAP PO SCH (08:49)
[2017-12-05] MEDS: NICOTINE 21MG/24HR PATCH TRANSDERM SCH (08:50)
[2017-12-05] MEDS: ATENOLOL 25 MG TAB PO SCH (08:50)
[2017-12-05] MEDS: CHOLECALCIFEROL 1,000 UNIT TAB PO SCH (08:50)
[2017-12-05] MEDS: FERROUS SULFATE 325 MG TAB PO SCH (08:50)
[2017-12-05] MEDS: SODIUM CHLORIDE 0.9% 1,000 ML IV SCH ×2 (08:59→13:39)
[2017-12-05] MEDS ORDERED: ACETAMINOPHEN TAB 325 MG TAB PO STA (09:14)
--- NOTE | 2017-12-05 11:08 | PN ---
PROGRESS NOTE DATE OF SERVICE: December 05, 2017. REQUESTING PHYSICIAN: Dr. Baumann REASON FOR CONSULTATION: Abdominal pain, nausea, vomiting, and diarrhea for the last 1 week duration. HISTORY OF PRESENT ILLNESS: The patient is a 52 -year-old pleasant white female with history of heavy alcohol abuse for several years duration. The patient was admitted to the hospital with nausea, vomiting, diarrhea of one week duration. While in the hospital, she was noted to have elevated serum transaminases. She also complained of fever, and chills. This morning, she states she is feeling better. Her epigastric pain is improving. She did not have any further episodes of nausea, vomiting. She still had two loose bowel movements yesterday. No bleeding. She did have an ultrasound of the abdomen done yesterday that showed evidence of heterogenicity of the liver consistent with hepatocellular disease was unremarkable. C diff was negative. PHYSICAL EXAMINATION: She appears comfortable in no apparent distress. Vital signs stable. Blood pressure is 156/82, pulse rate 98, temperature is 108. HEENT Examination unremarkable. Conjunctivae pink. Sclerae anicteric. Oral cavity no lesions. Neck no jugular venous distention or lymph node enlargement. Chest was clear to auscultation. HEART: Regular rate and rhythm. ABDOMEN: Soft. There was tenderness in the epigastric area. Bowel sounds are positive. No organomegaly. Extremities: No pedal edema. Skin no rashes. NEUROLOGIC: Alert and oriented x3. No focal deficits. LABS: From today T-bilirubin is down to 1.4, AST is 269, ALT 147, alkaline phosphatase is normal. WBC 4.1, hemoglobin 10.6, MCV 106, platelets 64,000. INR is 1.3. C diff is negative. IMPRESSION: 1. Acute onset of nausea, vomiting, diarrhea for the last 1 week duration, which is gradually improving. Possibly viral gastroenteritis. C diff toxin is negative. 2. Elevated amylase and lipase consistent with acute pancreatitis, most likely alcohol related, which is also improving. 3. Elevated LFTs with AST more than ALT and T bilirubin up to 2.4. All consistent with alcoholic hepatitis. Ultrasound of the abdomen and CT scan showed evidence of heterogenicity of the liver consistent with hepatitis. 4. Thrombocytopenia, most likely related to portal hypertension from underlying chronic liver disease. RECOMMENDATIONS: 1. Continue with symptomatic and supportive care. 2. Okay for Tylenol as needed for fever. 3. Await hepatitis viral serologies which we already ordered yesterday. 4. I had a lengthy discussion with the patient regarding abstinence from alcohol. 5. We will follow her closely during the hospital stay. Thank you for this consultation. BAKARI / INA: [id number] /
[2017-12-05] MEDS: POTASSIUM CHLORIDE ER 20 MEQ TAB.ER PO SCH ×2 (11:39→13:13)
[2017-12-05] MEDS: THIAMINE 100 MG TAB PO SCH ×2 (11:39→17:46)
[2017-12-05] MEDS ORDERED: POTASSIUM BICARBONATE/CIT AC 20 MEQ TABLET.EFF PO SCH (14:00)
--- NOTE | 2017-12-05 14:52 | P.PN ---
Subjective Progress Note Date: 12/05/17 This is a 52-year-old patient resented to the emergency department with nausea, vomiting and abdominal pain has been occurring for a week. Has a known medical history of GERD, hypertension, anemia, chronic back pain, IBS, cholecystectomy, anxiety, depression, nicotine dependence and EtOH abuse. Patient states her last drink was approximately 2 days ago. Patient states she has been just very tired and has had little appetite. EKG showing sinus tachycardic. Patient's potassium 3.1, sodium 132 and magnesium level I.1. Magnesium and potassium replacement have been ordered per emergency room. AST 537, ALT 207 and total Bilirubin 2.4. Patient to remain NPO. GI consult has been placed. Amylase and lipase has been ordered. Urinary analysis completed showing a small amount of Leukocyte Estrace. Repeat urinalysis for tomorrow has been ordered along with comp and CBC. Platelets 53 patient is a known ETOH , anticoagulation held at this time. Denies chest pain or shortness of breath at this time. Patient denies any urinary frequency urgency. At this moment patient does not feel nauseated and has not had any nausea of emesis. Patient denies any bleeding present in stool or emesis. 12/04/2017 patient is in bed stating she does feel improved from yesterday. Current lactic level 1.4. Amylase level 42, lipase is 832. GI services have been consulted for acute pancreatitis and elevated liver enzymes. AST 347 ALT 157, total Bilrubin 2.4 and alkaline phosphatase 142. Patient has remained nothing by mouth. IV fluids normal saline at 125. Magnesium level improved at 2.0. Potassium 3.2, potassium replacement has been ordered. Platelets remain low at 54. Patient denies chest pain or shortness of breath. Does report occasional nausea and vomiting. Awaiting GI consult. On 12/05/2017 patient is alert and oriented 3 in no apparent distress, patient is in bed stating she does feel improved from yesterday. Current lactic level 1.4. Amylase level 42, lipase is 832. GI services have been consulted for acute pancreatitis and elevated liver enzymes. AST 269 ALT 147, total Bilrubin 1.4 and alkaline phosphatase 142. Patient has remained nothing by mouth. IV fluids normal saline at 125. Magnesium level improved at 2.0. Potassium 3.3, potassium replacement has been ordered. Platelets remain low at 64. Patient denies chest pain or shortness of breath. Does report occasional nausea and vomiting. Awaiting GI consult. Objective - Vital Signs Vital signs: Vital Signs Temp 98.7 F 12/05/17 10:55 Pulse 91 12/05/17 10:55 Resp 18 12/05/17 10:55 BP 152/98 12/05/17 10:55 Pulse Ox 97 12/05/17 10:55 Intake & Output 12/04/17 12/05/17 12/05/17 18:59 06:59 18:59 Intake Total 1400 Balance 1400 Weight 82.6 kg Intake: Intake, IV Titration 1400 Amount Potassium Chloride 10 meq 400 In Water For Injection 1 100ml.bag @ 100 mls/hr IVPB Q1HR [facility] Rx#: [id number] Sodium Chloride 0.9% 1, 1000 000 ml @ 125 mls/hr IV . Q8H [facility] Rx#:[id number] Other: Voiding Method Toilet # Voids 2 2 1 # Bowel Movements 1 - Exam Head normocephalic and atraumatic Neck supple no JVD no goiter Lungs clear to auscultation bilaterally no wheezing or crackles Heart regular rate and rhythm S1-S2, no rub or gallop Abdomen is soft nontender nondistended positive bowel sounds no hepatosplenomegaly Extremities no edema no cyanosis or clubbing Neuro alert and orientated to 3 no gross focal deficit - Labs CBC & Chem 7: 12/05/17 05:38 12/05/17 05:38 Labs: Abnormal Lab Results - Last 24 Hours (Table) 12/05/17 12/05/17 12/05/17 Range/Units 05:38 05:38 05:38 RBC 3.08 L (3.80-5.40) m/uL Hgb 10.6 L (11.4-16.0) gm/dL Hct 32.7 L (34.0-46.0) % MCV 106.4 H (80.0-100.0) fL Plt Count 64 L (150-450) k/uL INR 1.3 H (<1.2) Sodium 134 L (137-145) mmol/L Potassium 3.3 L (3.5-5.1) mmol/L BUN <2 L (7-17) mg/dL Creatinine 0.40 L (0.52-1.04) mg/dL Total Bilirubin 1.4 H (0.2-1.3) mg/dL AST 269 H (14-36) U/L ALT 147 H (9-52) U/L Alkaline Phosphatase 142 H (38-126) U/L Total Protein 5.5 L (6.3-8.2) g/dL Albumin 3.1 L (3.5-5.0) g/dL Microbiology - Last 24 Hours (Table) 12/03/17 12:27 Urine Culture - Final Urine,Voided Assessment and Plan Plan: 1. Acute pancreatitis. Dehydration related to Nausea vomiting and diarrhea. Sodium 132, potassium 3.1 and magnesium 1.1. Magnesium and potassium replacement has been ordered per emergency room. Will monitor closely. Lactic acid 3.2.. Patient received 1.5 L in emergency room. Keep nothing by mouth at this time. GI has been consulted. Lipase 832, amylase 42. Rocephin IV antibiotics ordered. IV fluid remaining at 125. Magnesium improving at 2.0. Potassium 3.2, placement has been ordered. 2. Elevated liver enzyme. AST 537 and ALT 207. Total bilirubin 2.4. Patient' s home Zocor has been held. GI has been consulted. Patient is a known EtOH. AST 347, ALT 157 and total bilirubin 2.4. 3. Thrombocytopenia. Likely related to EtOH. No signs of active bleeding at this time. We'll hold off on any anticoagulation at this time. Platelet level 54 4. Elevated lactic acid. Patient received 1.5 L of normal saline in the emergency room. Patient remains afebrile,white blood cell 5.0. Lactic acid 1.4. 5. EtOH. Patient said last drink was 2 days ago. CIWA scale has been ordered. Continue thiamine. Patient requesting social work services for possible resources for alcohol abuse. 6. History of anxiety and depression. Continue Effexor 7. Nicotine dependence. Nicotine patch has been ordered 8. History of hypertension 9. History of Irritable bowel syndrome. continue Bentyl 10. Chronic back pain. [place] has been held due to elevated liver enzymes morphine has been ordered for pain control 11. Sinus tachycardia likely related to dehydration. EKG completed emergency room showing sinus tachycardia. Troponin level negative. Home atenolol dose has been ordered DVT prophylaxis SCDs due to low platelet count. GI prophylaxis Protonix.
[2017-12-05] MEDS: DICYCLOMINE 20 MG TAB PO PRN (21:13)
[2017-12-05 21:36] VITALS: RESP 16
[2017-12-06] MEDS: LORazepam 2 MG/ML INJ IV PRN ×5 (00:21→21:24)
[2017-12-06] MEDS: MORPHINE SULFATE 2 MG/ML SYRINGE IVP PRN ×4 (00:24→13:50)
[2017-12-06] MEDS: SODIUM CHLORIDE 0.9% 1,000 ML IV SCH ×3 (02:25→13:44)
[2017-12-06] MEDS: NICOTINE 21MG/24HR PATCH TRANSDERM SCH (08:25)
[2017-12-06] MEDS: PANTOPRAZOLE 40 MG TABLET PO SCH (08:26)
[2017-12-06] MEDS: CHOLECALCIFEROL 1,000 UNIT TAB PO SCH (08:26)
[2017-12-06] MEDS: ATENOLOL 25 MG TAB PO SCH (08:26)
[2017-12-06] MEDS: FERROUS SULFATE 325 MG TAB PO SCH (08:26)
[2017-12-06] MEDS: cefTRIAXone IN SWFI 1,000 MG/10 ML SYRINGE IVP SCH (08:26)
[2017-12-06] MEDS: VENLAFAXINE HCL ER 75 MG CAP PO SCH (08:27)
[2017-12-06 09:17] LABS: Basophils % (A) 0 %; Eosinophils # (A) 0.1 k/uL (0-0.7); Eosinophils % (A) 2 %; HCT 32.2 % (34.0-46.0); HGB 10.3 gm/dL (11.4-16.0); Lymphocytes # (A) 1.4 k/uL (1.0-4.8); Lymphocytes % (A) 32 %; MCH 33.3 pg (25.0-35.0); MCHC 32.1 g/dL (31.0-37.0); MCV 103.9 fL (80.0-100.0); Macrocytosis Slight; Monocytes # (A) 0.5 k/uL (0-1.0); Monocytes % (A) 11 %; Neutrophils # (A) 2.4 k/uL (1.3-7.7); Neutrophils % (A) 53 %; RDW 14.1 % (11.5-15.5); WBC 4.5 k/uL (3.8-10.6)
[2017-12-06 09:28] LABS: Platelet Count 90 k/uL (150-450)
[2017-12-06 09:29] LABS: ALT 127 U/L (9-52); AST 204 U/L (14-36); Albumin 3.2 g/dL (3.5-5.0); Alkaline Phosphatase 132 U/L (38-126); Anion Gap 10 mmol/L; Blood Urea Nitrogen <2 mg/dL (7-17); Calcium 8.8 mg/dL (8.4-10.2); Carbon Dioxide 28 mmol/L (22-30); Chloride 93 mmol/L (98-107); Glucose 92 mg/dL (74-99); Lipase 375 U/L (23-300); Potassium 3.4 mmol/L (3.5-5.1); Sodium 131 mmol/L (137-145); Total Bilirubin 1.1 mg/dL (0.2-1.3); Total Protein 5.6 g/dL (6.3-8.2)
[2017-12-06] MEDS: THIAMINE 100 MG TAB PO SCH ×2 (11:12→17:04)
[2017-12-06] MEDS: ONDANSETRON 4 MG/2 ML VIAL IVP PRN (11:12)
--- NOTE | 2017-12-06 13:02 | P.PN ---
Subjective Progress Note Date: 12/06/17 This is a 52-year-old patient resented to the emergency department with nausea, vomiting and abdominal pain has been occurring for a week. Has a known medical history of GERD, hypertension, anemia, chronic back pain, IBS, cholecystectomy, anxiety, depression, nicotine dependence and EtOH abuse. Patient states her last drink was approximately 2 days ago. Patient states she has been just very tired and has had little appetite. EKG showing sinus tachycardic. Patient's potassium 3.1, sodium 132 and magnesium level I.1. Magnesium and potassium replacement have been ordered per emergency room. AST 537, ALT 207 and total Bilirubin 2.4. Patient to remain NPO. GI consult has been placed. Amylase and lipase has been ordered. Urinary analysis completed showing a small amount of Leukocyte Estrace. Repeat urinalysis for tomorrow has been ordered along with comp and CBC. Platelets 53 patient is a known ETOH , anticoagulation held at this time. Denies chest pain or shortness of breath at this time. Patient denies any urinary frequency urgency. At this moment patient does not feel nauseated and has not had any nausea of emesis. Patient denies any bleeding present in stool or emesis. 12/04/2017 patient is in bed stating she does feel improved from yesterday. Current lactic level 1.4. Amylase level 42, lipase is 832. GI services have been consulted for acute pancreatitis and elevated liver enzymes. AST 347 ALT 157, total Bilrubin 2.4 and alkaline phosphatase 142. Patient has remained nothing by mouth. IV fluids normal saline at 125. Magnesium level improved at 2.0. Potassium 3.2, potassium replacement has been ordered. Platelets remain low at 54. Patient denies chest pain or shortness of breath. Does report occasional nausea and vomiting. Awaiting GI consult. On 12/05/2017 patient is alert and oriented 3 in no apparent distress, patient is in bed stating she does feel improved from yesterday. Current lactic level 1.4. Amylase level 42, lipase is 832. GI services have been consulted for acute pancreatitis and elevated liver enzymes. AST 269 ALT 147, total Bilrubin 1.4 and alkaline phosphatase 142. Patient has remained nothing by mouth. IV fluids normal saline at 125. Magnesium level improved at 2.0. Potassium 3.3, potassium replacement has been ordered. Platelets remain low at 64. Patient denies chest pain or shortness of breath. Does report occasional nausea and vomiting. On 12/06/2017 patient is alert and oriented 3 in no apparent distress, she is able to tolerate diet well there is no nausea or vomiting she is still complaining of some epigastric pain liver enzymes and lipase are improving but still in the normal range . Platelet count is up to 90 Objective - Vital Signs Vital signs: Vital Signs Temp 98.5 F 12/06/17 05:27 Pulse 106 H 12/06/17 05:27 Resp 16 12/06/17 05:27 BP 153/95 12/06/17 05:27 Pulse Ox 92 L 12/06/17 05:27 Intake & Output 12/05/17 12/06/17 12/06/17 18:59 06:59 18:59 Weight 82.6 kg 82.2 kg Other: Voiding Method Toilet Toilet # Voids 1 1 - Exam Head normocephalic and atraumatic Neck supple no JVD no goiter Lungs clear to auscultation bilaterally no wheezing or crackles Heart regular rate and rhythm S1-S2, no rub or gallop Abdomen is soft nontender nondistended positive bowel sounds no hepatosplenomegaly Extremities no edema no cyanosis or clubbing Neuro alert and orientated to 3 no gross focal deficit - Labs CBC & Chem 7: 12/06/17 08:48 12/06/17 08:48 Labs: Abnormal Lab Results - Last 24 Hours (Table) 12/05/17 12/06/17 12/06/17 Range/Units 19:15 08:48 08:48 RBC 3.10 L (3.80-5.40) m/uL Hgb 10.3 L (11.4-16.0) gm/dL Hct 32.2 L (34.0-46.0) % MCV 103.9 H (80.0-100.0) fL Plt Count 90 L (150-450) k/uL Sodium 131 L (137-145) mmol/L Potassium 3.4 L 3.4 L (3.5-5.1) mmol/L Chloride 93 L (98-107) mmol/L BUN <2 L (7-17) mg/dL Creatinine 0.40 L (0.52-1.04) mg/dL AST 204 H (14-36) U/L ALT 127 H (9-52) U/L Alkaline Phosphatase 132 H (38-126) U/L Total Protein 5.6 L (6.3-8.2) g/dL Albumin 3.2 L (3.5-5.0) g/dL Lipase 375 H (23-300) U/L Assessment and Plan Plan: 1. Acute pancreatitis. Dehydration related to Nausea vomiting and diarrhea. Sodium 132, potassium 3.1 and magnesium 1.1. Magnesium and potassium replacement has been ordered per emergency room. Will monitor closely. Lactic acid 3.2.. Patient received 1.5 L in emergency room. Keep nothing by mouth at this time. GI has been consulted. Lipase 832, amylase 42. Rocephin IV antibiotics ordered. IV fluid remaining at 125. Magnesium improving at 2.0. Potassium 3.2, placement has been ordered. 2. Elevated liver enzyme. Improving since yesterday but still abnormal 3. Thrombocytopenia. Likely related to EtOH. No signs of active bleeding at this time. We'll hold off on any anticoagulation at this time. Platelet level up to 19 today. 4. Elevated lactic acid. Patient received 1.5 L of normal saline in the emergency room. Patient remains afebrile,white blood cell 5.0. Lactic acid 1.4. 5. EtOH. Patient said last drink was 2 days ago. CIWA scale has been ordered. Continue thiamine. Patient requesting social work services for possible resources for alcohol abuse. 6. History of anxiety and depression. Continue Effexor 7. Nicotine dependence. Nicotine patch has been ordered 8. History of hypertension 9. History of Irritable bowel syndrome. continue Bentyl 10. Chronic back pain. [place] has been held due to elevated liver enzymes morphine has been ordered for pain control 11. Sinus tachycardia likely related to dehydration. EKG completed emergency room showing sinus tachycardia. Troponin level negative. Home atenolol dose has been ordered DVT prophylaxis SCDs due to low platelet count. GI prophylaxis Protonix. Possible discharge in the next 1-2 days Prolonged counseling in regard to alcohol abstinence was done again today
[2017-12-06] MEDS: DICYCLOMINE 20 MG TAB PO PRN (13:50)
[2017-12-06] MEDS: POTASSIUM BICARBONATE/CIT AC 20 MEQ TABLET.EFF PO SCH ×2 (13:52→15:21)
--- NOTE | 2017-12-06 18:48 | PN ---
PROGRESS NOTE DATE OF SERVICE: December 06, 2017 Patient is a 52-year-old pleasant white female admitted to the hospital with abdominal pain, nausea, vomiting, and diarrhea for the last 2 days duration. She had low-grade fever, but currently has resolved. She is doing much better. Her symptoms have significantly improved. Presently on a clear liquid diet, tolerating well, requesting for a regular diet. She had only 2 bowel movements this morning. No bleeding. PHYSICAL EXAMINATION: She appears comfortable in no apparent distress. VITAL SIGNS: Stable. Blood pressure 153/95, pulse rate 106, temperature 98.5. HEENT examination unremarkable. Conjunctivae pink. Sclerae anicteric. Oral cavity no lesions. NECK: No jugular venous distention or lymph node enlargement. ABDOMEN: Soft. Bowel sounds are positive. No organomegaly. Extremities no pedal edema. Skin no rashes. NEUROLOGIC: Alert and oriented x3. No focal deficits. LABORATORY DATA: From today, WBC 4.5, hemoglobin 13.2, platelets 90,000. Basic metabolic panel is within normal limits. T-bilirubin is down to 1.1, AST 204, ALT 127, alkaline phosphatase 132, lipase 375. Hepatitis serologies for A, B, and C are negative. C diff toxin was negative. IMPRESSION: 1. Acute onset of nausea, vomiting, diarrhea, possibly viral gastroenteritis, resolving. 2. Elevated LFTs. hepatitis which is gradually improving. 3. History of heavy alcohol abuse. RECOMMENDATIONS: 1. Advance to regular diet. 2. Continue with symptomatic and supportive care for nausea and vomiting. 3. Abstinence from alcohol. 4. The patient was advised to follow up in office in 2-3 weeks following discharge from the hospital in regards to elevated LFTs. Thank you for the consultation. MMODL / IJN: [id number] /
[2017-12-07] MEDS: MORPHINE SULFATE 2 MG/ML SYRINGE IVP PRN ×3 (00:30→10:55)
[2017-12-07] MEDS: SODIUM CHLORIDE 0.9% 1,000 ML IV SCH ×2 (02:34→08:52)
[2017-12-07] MEDS: LORazepam 2 MG/ML INJ IV PRN ×2 (04:34→09:02)
[2017-12-07] MEDS: DICYCLOMINE 20 MG TAB PO PRN (06:18)
[2017-12-07 08:44] LABS: Basophils % (A) 0 %; Eosinophils # (A) 0.2 k/uL (0-0.7); Eosinophils % (A) 3 %; HCT 36.6 % (34.0-46.0); HGB 11.7 gm/dL (11.4-16.0); Lymphocytes # (A) 1.4 k/uL (1.0-4.8); Lymphocytes % (A) 32 %; MCV 106.2 fL (80.0-100.0); Macrocytosis Moderate; Mean Platelet Volume 8.4; Monocytes # (A) 0.5 k/uL (0-1.0); Monocytes % (A) 12 %; Neutrophils # (A) 2.2 k/uL (1.3-7.7); Neutrophils % (A) 51 %; Platelet Count 115 k/uL (150-450); RBC 3.45 m/uL (3.80-5.40); RDW 15.7 % (11.5-15.5); WBC 4.4 k/uL (3.8-10.6)
[2017-12-07] MEDS: PANTOPRAZOLE 40 MG TABLET PO SCH (08:51)
[2017-12-07] MEDS: cefTRIAXone IN SWFI 1,000 MG/10 ML SYRINGE IVP SCH (08:51)
[2017-12-07] MEDS: NICOTINE 21MG/24HR PATCH TRANSDERM SCH (08:51)
[2017-12-07] MEDS: ATENOLOL 25 MG TAB PO SCH (08:52)
[2017-12-07] MEDS: THIAMINE 100 MG TAB PO SCH (08:52)
[2017-12-07] MEDS: VENLAFAXINE HCL ER 75 MG CAP PO SCH (08:52)
[2017-12-07] MEDS: CHOLECALCIFEROL 1,000 UNIT TAB PO SCH (08:52)
[2017-12-07] MEDS: FERROUS SULFATE 325 MG TAB PO SCH (08:52)
[2017-12-07 09:01] LABS: ALT 119 U/L (9-52); AST 182 U/L (14-36); Albumin 3.7 g/dL (3.5-5.0); Alkaline Phosphatase 125 U/L (38-126); Anion Gap 9 mmol/L; Blood Urea Nitrogen 2 mg/dL (7-17); Calcium 9.2 mg/dL (8.4-10.2); Carbon Dioxide 33 mmol/L (22-30); Chloride 92 mmol/L (98-107); Glucose 93 mg/dL (74-99); Sodium 134 mmol/L (137-145); Total Protein 6.2 g/dL (6.3-8.2)
[2017-12-07 15:00] VITALS: TEMP 97.9
[2017-12-07 15:12] VITALS: BP 144/94; PULSE 83
--- NOTE | 2017-12-07 15:33 | P.DS ---
Providers Date of admission: 12/03/17 12:59 Expected date of discharge: 12/07/17 Attending physician: Jesus Baumann Consults: 12/03/17 15:35 Consult Physician Routine Consulting Provider: Mi Akbar Consult Reason/Comments: elevated liver enzymes, N/V and diarrhea Do you want consulting provider notified?: Yes Primary care physician: Jesus Pastor Lds Hospital Course: Discharge Diagnosis 1. Acute pancreatitis. Dehydration related to Nausea vomiting and diarrhea. Sodium 132, potassium 3.1 and magnesium 1.1. Magnesium and potassium replacement has been ordered per emergency room. Will monitor closely. Lactic acid 3.2.. Patient received 1.5 L in emergency room. Keep nothing by mouth at this time. GI has been consulted. Lipase 832, amylase 42. Rocephin IV antibiotics ordered. IV fluid remaining at 125. Magnesium improving at 2.0. Potassium 3.2, placement has been ordered. Potassium improved to 4.0. Lipase improving at 375. AST 182 and ALT 119 improving. She has been completed for discharge from GI. Patient to follow-up in office to 3 weeks in regards to elevated LFTs. 2. Elevated liver enzyme. Improving since yesterday but still abnormal. Patient will follow up outpatient with GI 3. Thrombocytopenia. Likely related to EtOH. No signs of active bleeding at this time. We'll hold off on any anticoagulation at this time. Platelet level up to 90 today. Level increasing to 115. Aspirin has been discontinued upon discharge due to risk of bleeding 4. Elevated lactic acid. Patient received 1.5 L of normal saline in the emergency room. Patient remains afebrile,white blood cell 5.0. Lactic acid 1.4. 5. EtOH. Patient said last drink was 2 days ago. CIWA scale has been ordered. Continue thiamine. Patient requesting social work services for possible resources for alcohol abuse. 6. History of anxiety and depression. Continue Effexor 7. Nicotine dependence. Nicotine patch has been ordered 8. History of hypertension. Continue atenolol 9. History of Irritable bowel syndrome. continue Bentyl 10. Chronic back pain. [place] has been held due to elevated liver enzymes morphine has been ordered for pain control. Patient's home medication of [place] will be discontinued due to elevated liver enzymes. Will follow-up with primary care provider 11. Sinus tachycardia likely related to dehydration. EKG completed emergency room showing sinus tachycardia. Troponin level negative. Home atenolol dose has been ordered- resolved. Current heart rate 83 Prolonged counseling in regard to alcohol abstinence was done again today Hospital course This is a 52-year-old patient resented to the emergency department with nausea, vomiting and abdominal pain has been occurring for a week. Has a known medical history of GERD, hypertension, anemia, chronic back pain, IBS, cholecystectomy, anxiety, depression, nicotine dependence and EtOH abuse. Patient states her last drink was approximately 2 days ago. Patient states she has been just very tired and has had little appetite. EKG showing sinus tachycardic. Patient's potassium 3.1, sodium 132 and magnesium level I.1. Magnesium and potassium replacement have been ordered per emergency room. AST 537, ALT 207 and total Bilirubin 2.4. Patient to remain NPO. GI consult has been placed. Amylase and lipase has been ordered. Urinary analysis completed showing a small amount of Leukocyte Estrace. Repeat urinalysis for tomorrow has been ordered along with comp and CBC. Platelets 53 patient is a known ETOH , anticoagulation held at this time. Denies chest pain or shortness of breath at this time. Patient denies any urinary frequency urgency. At this moment patient does not feel nauseated and has not had any nausea of emesis. Patient denies any bleeding present in stool or emesis. 12/04/2017 patient is in bed stating she does feel improved from yesterday. Current lactic level 1.4. Amylase level 42, lipase is 832. GI services have been consulted for acute pancreatitis and elevated liver enzymes. AST 347 ALT 157, total Bilrubin 2.4 and alkaline phosphatase 142. Patient has remained nothing by mouth. IV fluids normal saline at 125. Magnesium level improved at 2.0. Potassium 3.2, potassium replacement has been ordered. Platelets remain low at 54. Patient denies chest pain or shortness of breath. Does report occasional nausea and vomiting. Awaiting GI consult. On 12/05/2017 patient is alert and oriented 3 in no apparent distress, patient is in bed stating she does feel improved from yesterday. Current lactic level 1.4. Amylase level 42, lipase is 832. GI services have been consulted for acute pancreatitis and elevated liver enzymes. AST 269 ALT 147, total Bilrubin 1.4 and alkaline phosphatase 142. Patient has remained nothing by mouth. IV fluids normal saline at 125. Magnesium level improved at 2.0. Potassium 3.3, potassium replacement has been ordered. Platelets remain low at 64. Patient denies chest pain or shortness of breath. Does report occasional nausea and vomiting. On 12/06/2017 patient is alert and oriented 3 in no apparent distress, she is able to tolerate diet well there is no nausea or vomiting she is still complaining of some epigastric pain liver enzymes and lipase are improving but still in the normal range . Platelet count is up to 90 On 12/07/2017 patient is A and O 3 and states that she is feeling much better today. Total bilirubin improving to 1.0. AST is improving at 182 and ALT 119. Patient to follow-up outpatient with Dr. Akbar per GI for elevated LFTs. Home medications of [place] and Zocor has been discontinued upon discharge due to elevated liver enzymes. Patient Condition at Discharge: Stable Plan - Discharge Summary Discharge Rx Participant: Yes New Discharge Prescriptions: New Nicotine 21Mg/24Hr Patch [Habitrol] 1 patch TRANSDERM DAILY #30 patch Continue Thiamine [Vitamin B-1] 100 mg PO DAILY Venlafaxine HCl [Effexor XR] 75 mg PO DAILY Dicyclomine [Bentyl] 20 mg PO Q12H PRN PRN Reason: Gi Upset Folic Acid 1 mg PO DAILY Ferrous Sulfate [Iron (65 MG Elemental)] 325 mg PO DAILY Atenolol [Tenormin] 25 mg PO DAILY Cholecalciferol (Vitamin D3) [Vitamin D3] 2,000 unit PO DAILY Ondansetron HCl [Zofran] 4 mg PO Q8H PRN PRN Reason: Nausea Discontinued HYDROcodone/APAP 10-325MG [[place] 10-325] 1 tab PO Q8H PRN PRN Reason: Pain Aspirin [Adult Low Dose Aspirin EC] 81 mg PO DAILY Simvastatin [Zocor] 20 mg PO HS Discharge Medication List Thiamine [Vitamin B-1] 100 mg PO DAILY 10/22/17 [History] Atenolol [Tenormin] 25 mg PO DAILY 12/03/17 [History] Cholecalciferol (Vitamin D3) [Vitamin D3] 2,000 unit PO DAILY 12/03/17 [History] Dicyclomine [Bentyl] 20 mg PO Q12H PRN 12/03/17 [History] Ferrous Sulfate [Iron (65 MG Elemental)] 325 mg PO DAILY 12/03/17 [History] Folic Acid 1 mg PO DAILY 12/03/17 [History] Ondansetron HCl [Zofran] 4 mg PO Q8H PRN 12/03/17 [History] Venlafaxine HCl [Effexor XR] 75 mg PO DAILY 12/03/17 [History] Nicotine 21Mg/24Hr Patch [Habitrol] 1 patch TRANSDERM DAILY #30 patch 12/07/17 [ Rx] Follow up Appointment(s)/Referral(s): Mi Akbar MD [STAFF PHYSICIAN] - 01/04/18 3:30 pm Jesus Baumann MD [Primary Care Provider] - 12/18/17 10:30 am (Thursday) Activity/Diet/Wound Care/Special Instructions: Diet regular Activity as tolerated
--- NOTE | 2017-12-07 19:49 | PN ---
PROGRESS NOTE DATE OF SERVICE: 12/07/2017 REQUESTING PHYSICIAN: The patient is a 52-year-old pleasant white female admitted to the hospital with acute onset of nausea, vomiting, diarrhea for the last 1 week duration. She was also noted to have elevated LFTs and a mild component of acute alcoholic hepatitis. She has history of significant alcohol abuse; quit about a week ago. She is doing much better on a regular diet, tolerating well. No new symptoms today. PHYSICAL EXAMINATION: Blood pressure 152/101, pulse rate 91, temperature 97.9. HEENT examination unremarkable. Conjunctivae pink. Sclerae anicteric. Oral cavity no lesions. Neck no jugular venous distention or lymph node enlargement. Chest was clear to auscultation. Heart regular rate and rhythm. Abdomen soft, bowel sounds positive. No organomegaly. Extremities: No pedal edema. Skin no rashes. NEUROLOGIC: Alert and oriented x3. No focal deficits. LABS: WBC 4.4, hemoglobin 11.7, platelets 115. AST and ALT are 182 and 119 respectively. T- bilirubin and alkaline phosphatase are normal. Hepatitis C antibody was negative. IMPRESSION: 1. Elevated LFTs, possibly acute alcoholic hepatitis. Serum transaminases are gradually improving. Hepatitis serologies for A, B, and C are negative. 2. Nausea, vomiting, diarrhea, resolved. 3. History of alcohol abuse; quit about a week ago. RECOMMENDATIONS: Since the patient's symptoms are better and tolerating diet, she can be discharged home with outpatient follow up in 2 weeks. Once again, advised her to remain abstinent from alcohol. Thank you for this consultation. MMODL / IJN: [id number] /
== END 2017-12-07 17:55 | disposition home or self-care (01) | DRG 640 ==
LOC: EC 10:47 → 6SEL 12:59 → 5MS5E 12-05 10:47
PROVIDERS: ADMIT Internal Medicine; ATTEND Internal Medicine
DX: E86.0 Dehydration (principal); K85.90 Acute pancreatitis without necrosis or infection, unspecified; K76.6 Portal hypertension; D64.9 Anemia, unspecified; D69.59 Other secondary thrombocytopenia; D75.89 Other specified diseases of blood and blood-forming organs; E83.42 Hypomagnesemia; E87.6 Hypokalemia; F10.20 Alcohol dependence, uncomplicated; F17.200 Nicotine dependence, unspecified, uncomplicated; F32.9 Major depressive disorder, single episode, unspecified; F41.9 Anxiety disorder, unspecified; G89.29 Other chronic pain; I10 Essential (primary) hypertension; K21.9 Gastro-esophageal reflux disease without esophagitis; K58.0 Irritable bowel syndrome with diarrhea; K70.10 Alcoholic hepatitis without ascites; K76.0 Fatty (change of) liver, not elsewhere classified; Z79.82 Long term (current) use of aspirin; Z80.0 Family history of malignant neoplasm of digestive organs; Z81.8 Family history of other mental and behavioral disorders; Z79.899 Other long term (current) drug therapy; Z79.891 Long term (current) use of opiate analgesic; Z88.0 Allergy status to penicillin; Z90.49 Acquired absence of other specified parts of digestive tract; Z98.51 Tubal ligation status
CPT/HCPCS: 36415; 76705; 80053; 80074; 81001; 81003; 82105; 82150; 82550; 82553; 83605; 83690; 83735; 84100; 84132; 84484; 85025; 85610; 87086; 87324; 93005; 96365; 96368; 96375; 99285

== ENCOUNTER → 2018-02-03 | Outpatient (CLI) | payer OTHER ==
[2018-02-03 12:26] LABS: ALT 61 U/L (9-52); AST 114 U/L (14-36); Albumin 4.2 g/dL (3.5-5.0); Alkaline Phosphatase 83 U/L (38-126); Anion Gap 12 mmol/L; Blood Urea Nitrogen 9 mg/dL (7-17); Calcium 9.7 mg/dL (8.4-10.2); Carbon Dioxide 26 mmol/L (22-30); Chloride 101 mmol/L (98-107); Glucose 109 mg/dL (74-99); Potassium 4.6 mmol/L (3.5-5.1); Sodium 139 mmol/L (137-145); Total Bilirubin 0.3 mg/dL (0.2-1.3); Total Protein 7.3 g/dL (6.3-8.2)
[2018-02-03 12:28] LABS: Basophils % (A) 1 %; Eosinophils # (A) 0.1 k/uL (0-0.7); Eosinophils % (A) 1 %; HCT 43.5 % (34.0-46.0); HGB 14.1 gm/dL (11.4-16.0); Lymphocytes # (A) 1.6 k/uL (1.0-4.8); Lymphocytes % (A) 30 %; MCH 35.8 pg (25.0-35.0); MCHC 32.3 g/dL (31.0-37.0); MCV 110.6 fL (80.0-100.0); Macrocytosis Marked; Mean Platelet Volume 7.8; Monocytes # (A) 0.4 k/uL (0-1.0); Monocytes % (A) 7 %; Neutrophils # (A) 3.2 k/uL (1.3-7.7); Neutrophils % (A) 59 %; Platelet Count 194 k/uL (150-450); RBC 3.93 m/uL (3.80-5.40); RDW 12.9 % (11.5-15.5); WBC 5.4 k/uL (3.8-10.6)
== END | disposition home or self-care (01) ==
LOC: LABWHC1 11:24
PROVIDERS: ATTEND Internal Medicine Gastroenterology
DX: K70.30 Alcoholic cirrhosis of liver without ascites (principal)
CPT/HCPCS: 36415; 80053; 85025

== ENCOUNTER → 2018-03-01 | Outpatient (CLI) | payer OTHER ==
[2018-03-01 16:09] LABS: ALT 63 U/L (9-52); AST 106 U/L (14-36); Albumin 4.1 g/dL (3.5-5.0); Alkaline Phosphatase 74 U/L (38-126); Anion Gap 8 mmol/L; Blood Urea Nitrogen 8 mg/dL (7-17); Calcium 9.3 mg/dL (8.4-10.2); Carbon Dioxide 27 mmol/L (22-30); Chloride 101 mmol/L (98-107); Glucose 94 mg/dL (74-99); Potassium 4.5 mmol/L (3.5-5.1); Sodium 136 mmol/L (137-145); Total Bilirubin 0.4 mg/dL (0.2-1.3); Total Protein 6.8 g/dL (6.3-8.2)
[2018-03-01 16:10] LABS: Basophils % (A) 1 %; Eosinophils # (A) 0.1 k/uL (0-0.7); Eosinophils % (A) 1 %; HCT 38.5 % (34.0-46.0); HGB 12.2 gm/dL (11.4-16.0); Lymphocytes % (A) 33 %; MCH 35.1 pg (25.0-35.0); MCHC 31.7 g/dL (31.0-37.0); MCV 110.8 fL (80.0-100.0); Macrocytosis Marked; Mean Platelet Volume 7.8; Monocytes # (A) 0.5 k/uL (0-1.0); Monocytes % (A) 8 %; Neutrophils # (A) 3.4 k/uL (1.3-7.7); Neutrophils % (A) 55 %; Platelet Count 154 k/uL (150-450); RBC 3.47 m/uL (3.80-5.40); RDW 12.7 % (11.5-15.5); WBC 6.1 k/uL (3.8-10.6)
== END | disposition home or self-care (01) ==
LOC: LABWHC1 14:27
PROVIDERS: ATTEND Internal Medicine Gastroenterology
DX: K70.10 Alcoholic hepatitis without ascites (principal)
CPT/HCPCS: 36415; 80053; 85025

== ENCOUNTER → 2018-03-09 | Outpatient (CLI) | payer OTHER ==
--- NOTE | 2018-03-09 21:10 | MR ---
EXAMINATION TYPE: MR brain wo/w con DATE OF EXAM: 03/09/2018 COMPARISON: CT brain October 15, 2009 HISTORY: Altered mental status TECHNIQUE: Multiplanar, multisequence images of the brain and brainstem is performed without and with IV contras t, utilizing 7.5 mL intravenous Gadavist . FINDINGS: Diffusion weighted images demonstrate no evidence of a recent infarct or other diffusion ab normality. There is no worrisome extra-axial fluid collection. There is ventricular and sulcal promi nence consistent with mild age-related cerebral atrophy more prominent from 2009 CT. There are scatte red foci of T2 hyperintensity seen throughout the superficial, deep, and periventricular white matter . Lesions are nonspecific in appearance and distribution. Involvement at level of dipak is also presen t. Lesions are most likely an basis of product of chronic small vessel ischemic change of patient thi s age. Midline structures demonstrate normal morphology. The craniocervical junction appears within normal limits. Post contrast images demonstrate no abnormal enhancement. The dural venous sinuses appear p atent. The visualized sinuses are clear and the globes are intact. IMPRESSION: There is mild diffuse cerebral atrophy and mild to moderate chronic small vessel ischemic change. No suspicious enhancement noted.
== END | disposition home or self-care (01) ==
LOC: RADMRIMAIN 19:19
PROVIDERS: ATTEND Internal Medicine
DX: I67.82 Cerebral ischemia (principal); G31.9 Degenerative disease of nervous system, unspecified
CPT/HCPCS: 70553; A9585

== ENCOUNTER → 2018-04-23 | Outpatient (CLI) | payer OTHER ==
--- NOTE | 2018-04-25 17:33 | US ---
EXAMINATION TYPE: US carotid duplex BILAT DATE OF EXAM: 04/23/2018 COMPARISON: NONE CLINICAL HISTORY: R41.3 Memory Loss Due To Medical Condition. Memory loss, dizziness EXAM MEASUREMENTS: RIGHT: Peak Systolic Velocity (PSV) cm/sec ----- Right CCA: 82.0 ----- Right ICA: 75.4 ----- Right ECA: 107.3 ICA/CCA ratio: 0.9 RIGHT: End Diastole cm/sec ----- Right CCA: 24.8 ----- Right ICA: 36.9 ----- Right ECA: 23.7 LEFT: Peak Systolic Velocity (PSV) cm/sec ----- Left CCA: 84.2 ----- Left ICA: 96.3 ----- Left ECA: 103.0 ICA/CCA ratio: 1.1 LEFT: End Diastole cm/sec ----- Left CCA: 32.5 ----- Left ICA: 31.4 ----- Left ECA: 31.8 VERTEBRALS (direction of flow): Right Vertebral: Antegrade Left Vertebral: Antegrade Rhythm: Arrhythmia Mild plaque noted bilateral bifurcations. No evidence of significant stenosis IMPRESSION: 1. Mild plaque bilaterally with no significant hemodynamic stenosis by carotid Doppler ultrasound. Criteria for Assigning % of Stenosis / Diameter reduction (Estimation based on the indirect measurements of the internal carotid artery velocities (ICA PSV). 1. Normal (no stenosis)=ICA PSV < 125 cm/s: ratio < 2.0: ICA EDV<40 cm/s. 2. Less than 50% stenosis=ICA PSV < 125 cm/s: ratio < 2.0: ICA EDV<40 cm/s. 3. 50 to 69% stenosis=ICA PSV of 125 to 230 cm/s: ration 2.0 ? 4.0: ICA EDV 40-100 cm/s. 4. Greater than 70% stenosis to near occlusion= ICA PSV > 230 cm/s: ratio > 4.0: ICA EDV > 100 cm/s. 5. Near occlusion= ICA PSV velocities may be low or undetectable: variable ratio and ICA EDV. 6. Total occlusion=unable to detect flow.
== END | disposition home or self-care (01) ==
LOC: RADUSWWP 15:42
PROVIDERS: ATTEND Psychiatry & Neurology Neurology
DX: I65.23 Occlusion and stenosis of bilateral carotid arteries (principal)
CPT/HCPCS: 93880

== ENCOUNTER → 2018-07-29 | Outpatient (CLI) | payer OTHER ==
--- NOTE | 2018-07-31 23:57 | MR ---
EXAMINATION TYPE: MR lumbar spine wo/w con DATE OF EXAM: 07/29/2018 COMPARISON: CT abdomen and pelvis October 23, 2017. HISTORY: Low back pain since 2008, history of prior surgery 2007 and 2009 L4-L5 level with persistent pain going into bilateral thighs and right buttocks. TECHNIQUE: Multiplanar, multisequence images of the lumbar spine is performed without and with IV contrast, util izing 8 mL intravenous Gadavist FINDINGS: Sagittal images of the lumbar spine show vertebral body heights and alignment to remain sat isfactory. Multilevel disc desiccation is identified. Advanced disc space narrowing with some ossifi c fusion L5-S1 level is again seen. The conus medullaris is normal in position and signal ending supe rior L1 level. Large hemangiomas are noted posterior to L1 and diffusely through the L4 vertebra. Mil d to moderate multilevel anterior spurring is redemonstrated. No suspicious enhancement is seen. Post erior scar tissue L5 level seen sagittal image 8. Axial images beginning at the T12-L1 level which is felt within normal limits. Axial images at the L1-L2 levels mild broad-based posterior disc protrusion minimally effaces the ant erior thecal sac, bilateral neural foramina are patent on axial image 20. Axial images at the L2-L3 level show mild facet degenerative changes bilaterally otherwise are felt t o normal limits. Axial images at the L3-L4 level show mild to moderate facet degenerative changes bilaterally. There i s broad disc bulge minimally effaces the anterior thecal sac and causing mild bilateral anterior infe rior neural foraminal narrowing. Axial images at the L4-L5 level show moderate facet degenerative changes and ligamentum flavum hypert rophy bilaterally on axial image 6. There is mild broad disc bulge mildly effacing anterior thecal sa c and causing mild bilateral inferior neural foraminal narrowing. Axial images at the L5-S1 level show mild facet degenerative changes bilaterally. Spinal canal is pre served. Bilateral neuroforamina are patent. No suspicious retroperitoneal findings are identified. IMPRESSION: Multilevel degenerative changes in the lumbar spine as detailed above.
== END | disposition home or self-care (01) ==
LOC: RADMRIMAIN 11:53
PROVIDERS: ATTEND Internal Medicine
DX: M47.816 Spondylosis without myelopathy or radiculopathy, lumbar region (principal)
CPT/HCPCS: 72158; A9585

== ENCOUNTER → 2018-08-04 | Outpatient (CLI) | payer OTHER ==
--- NOTE | 2018-08-05 10:30 | MM ---
Reason for exam: screening (asymptomatic). Last mammogram was performed 2 years ago. History: Patient is postmenopausal. Physical Findings: A clinical breast exam by your physician is recommended on an annual basis and results should be correlated with mammographic findings. MG Screening Mammo w CAD Bilateral CC and MLO view(s) were taken. XCCM view(s) were taken of the right breast. Prior study comparison: August 15, 2016, bilateral MG screening mammo w CAD. December 04, 2014, bilateral MG screening mammo w CAD. The breast tissue is heterogeneously dense. This may lower the sensitivity of mammography. Breast density increased compatible with patient's weight loss. No significant changes when compared with prior studies. ASSESSMENT: Negative, BI-RAD 1 RECOMMENDATION: Routine screening mammogram of both breasts in 1 year.
== END | disposition home or self-care (01) ==
LOC: RADMAMWWP 14:32
PROVIDERS: ATTEND Internal Medicine
DX: Z12.31 Encounter for screening mammogram for malignant neoplasm of breast (principal)
CPT/HCPCS: 77067

== ENCOUNTER 2018-08-30 22:45 | Emergency (ER) | payer OTHER ==
[2018-08-30] MEDS ORDERED: SODIUM CHLORIDE 0.9% 1,000 ML IV STA (22:54)
[2018-08-30] MEDS ORDERED: diphenhydrAMINE 50 MG/ML 1 ML VIAL IVP STA (22:54)
[2018-08-30] MEDS ORDERED: methylPREDNISolone SOD SUCCI 125 MG/2 ML VIAL IV STA (22:54)
[2018-08-30] MEDS ORDERED: diphenhydrAMINE 50 MG CAP PO STA (22:54)
[2018-08-30] MEDS ORDERED: FAMOTIDINE 20 MG/2 ML VIAL IV STA (22:55)
--- NOTE | 2018-08-30 22:58 | ED ---
General Adult HPI - General Chief complaint: Allergic Reaction Stated complaint: allergic reaction Time Seen by Provider: 08/30/18 22:49 Source: patient, EMS, RN notes reviewed Mode of arrival: EMS Limitations: no limitations - History of Present Illness Initial comments: 53-year-old female presents for evaluation suspected ALLERGIC reaction. Patient has been on 2 antibiotics, Bactrim and a second unknown antibiotic for the past several days secondary to infection in her right hand from cat scratch. She's had 2 days of dyspnea associated with this medication, she does report some abdominal pain and vomiting. This is chronic for this patient, she has chronic abdominal pain, chronic nausea and vomiting. Denies tongue or lip swelling. Denies central chest pain. She does report some chest tightness associated with her breathing. She is a current smoker, no diagnosis of asthma or COPD. - Related Data Home Medications Medication Instructions Recorded Confirmed Thiamine [Vitamin B-1] 100 mg PO DAILY 10/22/17 12/03/17 Atenolol [Tenormin] 25 mg PO DAILY 12/03/17 12/03/17 Cholecalciferol (Vitamin D3) 2,000 unit PO DAILY 12/03/17 12/03/17 [Vitamin D3] Dicyclomine [Bentyl] 20 mg PO Q12H PRN 12/03/17 12/03/17 Ferrous Sulfate [Iron (65 MG 325 mg PO DAILY 12/03/17 12/03/17 Elemental)] Folic Acid 1 mg PO DAILY 12/03/17 12/03/17 Ondansetron HCl [Zofran] 4 mg PO Q8H PRN 12/03/17 12/03/17 Venlafaxine HCl [Effexor XR] 75 mg PO DAILY 12/03/17 12/03/17 Previous Rx's Medication Instructions Recorded Nicotine 21Mg/24Hr Patch [Habitrol] 1 patch TRANSDERM DAILY #30 patch 12/07/17 Famotidine [Pepcid] 20 mg PO DAILY #7 tablet 08/31/18 diphenhydrAMINE [Benadryl] 25 mg PO TID PRN #21 capsule 08/31/18 methylPREDNISolone Dose Pack 4 mg PO DIRECTED #21 package 08/31/18 [Medrol Dose Pack] Allergies Allergy/AdvReac Type Severity Reaction Status Date / Time Penicillins Allergy Rash/Hives Verified 07/26/18 11:06 Review of Systems ROS Statement: Those systems with pertinent positive or pertinent negative responses have been documented in the HPI. ROS Other: All systems not noted in ROS Statement are negative. Past Medical History Past Medical History: GERD/Reflux, Hypertension Additional Past Medical History / Comment(s): hx anemia, MIGRAINES, FX LT ANKLE(CASTED NO SX), CHRONIC BACK PAIN, IBS History of Any Multi-Drug Resistant Organisms: None Reported Past Surgical History: Back Surgery, Section, Cholecystectomy, Tubal Ligation Additional Past Surgical History / Comment(s): LAMINECTOMY X2. PAIN CLINIC PROCEDURES, D&C Past Anesthesia/Blood Transfusion Reactions: Previous Problems w/ Anesthesia, Motion Sickness, Postoperative Nausea & Vomiting (PONV) Additional Past Anesthesia/Blood Transfusion Reaction / Comment(s): Migraines after pain procedures. Difficulty waking up after anesthesia. Past Psychological History: Anxiety, Depression Smoking Status: Current some day smoker Past Alcohol Use History: Abuse, Daily Past Drug Use History: None Reported - Past Family History Father Additional Family Medical History / Comment(s): was alcoholic- from complications of drinking. Mother Family Medical History: Cancer Additional Family Medical History / Comment(s): kidney and liver cancer, depression,smoker General Exam Limitations: no limitations General appearance: alert, in no apparent distress Head exam: Present: atraumatic, normocephalic ENT exam: Present: mucous membranes dry, other (No uvular swelling, no tongue or lip swelling) Respiratory exam: Present: normal lung sounds bilaterally. Absent: respiratory distress, wheezes, rhonchi, stridor Cardiovascular Exam: Present: normal rhythm, tachycardia GI/Abdominal exam: Present: soft. Absent: distended, tenderness, guarding Extremities exam: Present: normal inspection, normal capillary refill, other (Right upper extremity does have some puncture horta at the thenar eminence, no cellulitis, no crepitus, no induration.). Absent: pedal edema Neurological exam: Present: alert, oriented X3, CN II-XII intact. Absent: motor sensory deficit Psychiatric exam: Present: normal affect, normal mood Skin exam: Present: warm, dry, intact. Absent: cyanosis, diaphoretic Course Vital Signs 08/30/18 08/30/18 08/31/18 22:47 23:04 00:37 Temperature 100.7 F H Pulse Rate 109 H 102 H Respiratory 22 22 18 Rate Blood Pressure 124/106 122/82 O2 Sat by Pulse 97 97 Oximetry - Reevaluation(s) Reevaluation #1: 08/31/18 00:55 Patient's symptoms improved on reevaluation, no dyspnea, no persistent itching sensation. EKG Findings - EKG Comments: EKG Findings:: EKG: Normal sinus rhythm, age undetermined inferior infarct, no ST segment elevation, rate of 99, GA interval 152, QRS duration 84, QTC 464 Medical Decision Making - Medical Decision Making 53-year-old female on antibiotics for Back to the right hand which occurred 5 days prior. She's been on antibiotics for 4 days, she states she is on Bactrim and an unknown antibiotic that begins with a "D". She does not have this medication on hand. Bite to right hand is healing appropriately, no cellulitis, no signs of infection. Patient given Benadryl, Pepcid, Solu-Medrol and emergency department. On reevaluation she is feeling much better, symptoms improved. No leukocytosis, normal lactic, normal electrolytes. Chest x-ray negative for focal pneumonia, urinalysis. - Lab Data Result diagrams: 08/30/18 23:16 08/30/18 23:16 Lab Results 08/30/18 08/30/18 08/30/18 Range/Units 23:16 23:16 23:16 WBC 4.8 (3.8-10.6) k/uL RBC 3.50 L (3.80-5.40) m/uL Hgb 12.3 (11.4-16.0) gm/dL Hct 37.0 (34.0-46.0) % MCV 105.8 H (80.0-100.0) fL MCH 35.2 H (25.0-35.0) pg MCHC 33.3 (31.0-37.0) g/dL RDW 12.4 (11.5-15.5) % Plt Count 101 L (150-450) k/uL Neutrophils % 84 % Lymphocytes % 8 % Monocytes % 5 % Eosinophils % 1 % Basophils % 1 % Neutrophils # 4.0 (1.3-7.7) k/uL Lymphocytes # 0.4 L (1.0-4.8) k/uL Monocytes # 0.2 (0-1.0) k/uL Eosinophils # 0.1 (0-0.7) k/uL Basophils # 0.0 (0-0.2) k/uL Macrocytosis Slight Sodium 134 L (137-145) mmol/L Potassium 3.9 (3.5-5.1) mmol/L Chloride 102 (98-107) mmol/L Carbon Dioxide 18 L (22-30) mmol/L Anion Gap 14 mmol/L BUN 6 L (7-17) mg/dL Creatinine 0.48 L (0.52-1.04) mg/dL Est GFR (CKD-EPI)AfAm >90 (>60 ml/min/1.73 sqM) Est GFR (CKD-EPI)NonAf >90 (>60 ml/min/1.73 sqM) Glucose 104 H (74-99) mg/dL Plasma Lactic Acid Michel 1.8 (0.7-2.0) mmol/L Calcium 9.2 (8.4-10.2) mg/dL Total Bilirubin 0.4 (0.2-1.3) mg/dL AST 99 H (14-36) U/L ALT 46 (9-52) U/L Alkaline Phosphatase 119 (38-126) U/L Total Protein 6.8 (6.3-8.2) g/dL Albumin 4.0 (3.5-5.0) g/dL Urine Color Urine Appearance (Clear) Urine pH (5.0-8.0) Ur Specific [place] (1.001-1.035) Urine Protein (Negative) Urine Glucose (UA) (Negative) Urine Ketones (Negative) Urine Blood (Negative) Urine Nitrite (Negative) Urine Bilirubin (Negative) Urine Urobilinogen (<2.0) mg/dL Ur Leukocyte Esterase (Negative) Urine RBC (0-5) /hpf Urine WBC (0-5) /hpf Ur Squamous Epith Cells (0-4) /hpf Urine Bacteria (None) /hpf Urine Mucus (None) /hpf 08/31/18 Range/Units 00:30 WBC (3.8-10.6) k/uL RBC (3.80-5.40) m/uL Hgb (11.4-16.0) gm/dL Hct (34.0-46.0) % MCV (80.0-100.0) fL MCH (25.0-35.0) pg MCHC (31.0-37.0) g/dL RDW (11.5-15.5) % Plt Count (150-450) k/uL Neutrophils % % Lymphocytes % % Monocytes % % Eosinophils % % Basophils % % Neutrophils # (1.3-7.7) k/uL Lymphocytes # (1.0-4.8) k/uL Monocytes # (0-1.0) k/uL Eosinophils # (0-0.7) k/uL Basophils # (0-0.2) k/uL Macrocytosis Sodium (137-145) mmol/L Potassium (3.5-5.1) mmol/L Chloride (98-107) mmol/L Carbon Dioxide (22-30) mmol/L Anion Gap mmol/L BUN (7-17) mg/dL Creatinine (0.52-1.04) mg/dL Est GFR (CKD-EPI)AfAm (>60 ml/min/1.73 sqM) Est GFR (CKD-EPI)NonAf (>60 ml/min/1.73 sqM) Glucose (74-99) mg/dL Plasma Lactic Acid Michel (0.7-2.0) mmol/L Calcium (8.4-10.2) mg/dL Total Bilirubin (0.2-1.3) mg/dL AST (14-36) U/L ALT (9-52) U/L Alkaline Phosphatase (38-126) U/L Total Protein (6.3-8.2) g/dL Albumin (3.5-5.0) g/dL Urine Color Light Yellow Urine Appearance Clear (Clear) Urine pH 6.0 (5.0-8.0) Ur Specific [place] 1.006 (1.001-1.035) Urine Protein 1+ H (Negative) Urine Glucose (UA) Negative (Negative) Urine Ketones Negative (Negative) Urine Blood Small H (Negative) Urine Nitrite Negative (Negative) Urine Bilirubin Negative (Negative) Urine Urobilinogen <2.0 (<2.0) mg/dL Ur Leukocyte Esterase Negative (Negative) Urine RBC 3 (0-5) /hpf Urine WBC 1 (0-5) /hpf Ur Squamous Epith Cells <1 (0-4) /hpf Urine Bacteria Rare H (None) /hpf Urine Mucus Rare H (None) /hpf Disposition Clinical Impression: Allergic reaction Disposition: HOME SELF-CARE Condition: Fair Instructions (If sedation given, give patient instructions): Antibiotic Medication Allergy (ED) Prescriptions: diphenhydrAMINE [Benadryl] 25 mg PO TID PRN #21 capsule PRN Reason: Allergic Reaction methylPREDNISolone Dose Pack [Medrol Dose Pack] 4 mg PO DIRECTED #21 package Famotidine [Pepcid] 20 mg PO DAILY #7 tablet Is patient prescribed a controlled substance at d/c from ED?: No Referrals: Jesus Baumann MD [Primary Care Provider] - 1-2 days Time of Disposition: 01:07
[2018-08-30 23:40] LABS: Basophils % (A) 1 %; Eosinophils # (A) 0.1 k/uL (0-0.7); Eosinophils % (A) 1 %; HGB 12.3 gm/dL (11.4-16.0); Lymphocytes # (A) 0.4 k/uL (1.0-4.8); Lymphocytes % (A) 8 %; MCH 35.2 pg (25.0-35.0); MCHC 33.3 g/dL (31.0-37.0); MCV 105.8 fL (80.0-100.0); Macrocytosis Slight; Monocytes # (A) 0.2 k/uL (0-1.0); Monocytes % (A) 5 %; Neutrophils % (A) 84 %; Platelet Count 101 k/uL (150-450); RDW 12.4 % (11.5-15.5); WBC 4.8 k/uL (3.8-10.6)
[2018-08-30 23:52] LABS: ALT 46 U/L (9-52); AST 99 U/L (14-36); Alkaline Phosphatase 119 U/L (38-126); Anion Gap 14 mmol/L; Blood Urea Nitrogen 6 mg/dL (7-17); Calcium 9.2 mg/dL (8.4-10.2); Carbon Dioxide 18 mmol/L (22-30); Chloride 102 mmol/L (98-107); Glucose 104 mg/dL (74-99); Potassium 3.9 mmol/L (3.5-5.1); Sodium 134 mmol/L (137-145); Total Bilirubin 0.4 mg/dL (0.2-1.3); Total Protein 6.8 g/dL (6.3-8.2)
--- NOTE | 2018-08-30 23:55 | XR ---
EXAM: XR Chest, 2 Views CLINICAL HISTORY: Reason: fever/jackeline TECHNIQUE: Frontal and lateral views of the chest. COMPARISON: None available FINDINGS: Lungs: Lungs are clear of focal infiltrates or consolidations. Pleural space: No evidence of pleural effusion or pneumothorax. Heart: Heart size is within normal limits. Mediastinum: Mediastinal structures are unremarkable. Bones/joints: Imaged bony thorax is unremarkable. IMPRESSION: No evidence of acute cardiopulmonary disease.
[2018-08-31 00:38] VITALS: RESP 18
[2018-08-31 01:01] LABS: Appearance,Urine Clear (Clear); Bacteria,Urine Rare /hpf; Bilirubin,Urine Negative (Negative); Blood,Urine Small (Negative); Color,Urine Light Yellow; Glucose,Urine (UA) Negative (Negative); Ketones,Urine Negative (Negative); Leukocyte Esterase,Urine Negative (Negative); Mucus,Urine Rare /hpf; Nitrite,Urine Negative (Negative); Protein,Urine 1+ (Negative); RBC,Urine 3 /hpf (0-5); Specific Gravity,Urine 1.006 (1.001-1.035); Squamous Epithelial Cell,Urine <1 /hpf (0-4); Urobilinogen,Urine <2.0 mg/dL (<2.0); WBC,Urine 1 /hpf (0-5)
[2018-08-31 01:21] VITALS: BP 123/85; PULSE 69; TEMP 98.7
== END 2018-08-31 01:21 | disposition home or self-care (01) ==
LOC: EC 22:45
DX: R07.89 Other chest pain (principal); R06.00 Dyspnea, unspecified; T36.8X5A Adverse effect of other systemic antibiotics, initial encounter; R00.0 Tachycardia, unspecified; S61.431D Puncture wound without foreign body of right hand, subsequent encounter; G89.29 Other chronic pain; R10.9 Unspecified abdominal pain; R11.2 Nausea with vomiting, unspecified; I10 Essential (primary) hypertension; D64.9 Anemia, unspecified; F32.9 Major depressive disorder, single episode, unspecified; F41.9 Anxiety disorder, unspecified; F17.200 Nicotine dependence, unspecified, uncomplicated; Z79.899 Other long term (current) drug therapy; Z88.0 Allergy status to penicillin; Z87.19 Personal history of other diseases of the digestive system; Z90.49 Acquired absence of other specified parts of digestive tract; Z80.0 Family history of malignant neoplasm of digestive organs; W55.03XD Scratched by cat, subsequent encounter
CPT/HCPCS: 36415; 93005; 80053; 83605; 85025; 81001; 87040; 71046; 99285; 96374; 96375 ×2; 96361 ×2; J1200; J2930

== ENCOUNTER 2018-09-04 18:37 | Emergency (ER) | payer OTHER ==
[2018-09-04 18:44] VITALS: RESP 16; TEMP 98.2
[2018-09-04] MEDS ORDERED: SODIUM CHLORIDE 0.9% 1,000 ML IV STA (19:03)
[2018-09-04] MEDS ORDERED: DIPH,PERTUS(ACELL)TETVAC-LF 0.5 ML VIAL IM ONE (19:06)
[2018-09-04] MEDS ORDERED: KETOROLAC 30 MG/ML 1 ML VIAL IVP STA (19:06)
[2018-09-04] MEDS ORDERED: CLINDAMYCIN 600 MG in DEXTROSE 5% IN WATER 50 ML IVPB STA ×2 (19:08)
--- NOTE | 2018-09-04 19:21 | ED ---
Upper Extremity HPI - General Chief Complaint: Extremity Injury, Upper Stated Complaint: Cat bite/poss infection Time Seen by Provider: 09/04/18 18:47 Source: patient, RN notes reviewed, old records reviewed Mode of arrival: ambulatory Limitations: no limitations - History of Present Illness Initial Comments: Patient is a 53-year-old female who presents the instruments A for evaluation of right hand pain and swelling. Patient reports that she was bit by a stray cat over a week ago. At that time she was seen at outpatient clinic and started on antibiotics. Subsequently after 2 doses of her antibiotic, Bactrim and an unknown antibiotic "starting with D, Patient developed severe ALLERGIC reaction and arrives to emergency department with anaphylaxis. Patient was given Solu- Medrol Pepcid and Benadryl the time. After the ALLERGIC reaction to antibiotics approximately 5 days ago, Patient has not had any antibiotics and is only been taking the steroids and Benadryl. Patient states that today after washing dishes she bumped her hand now has increased redness pain and swelling within the right hand. She is right-handed. She reports full range of motion of her fingertips and sensation distally. She complains of some pain with range of mo tion of the wrist. - Related Data Home Medications Medication Instructions Recorded Confirmed Thiamine [Vitamin B-1] 100 mg PO DAILY 10/22/17 12/03/17 Atenolol [Tenormin] 25 mg PO DAILY 12/03/17 12/03/17 Cholecalciferol (Vitamin D3) 2,000 unit PO DAILY 12/03/17 12/03/17 [Vitamin D3] Dicyclomine [Bentyl] 20 mg PO Q12H PRN 12/03/17 12/03/17 Ferrous Sulfate [Iron (65 MG 325 mg PO DAILY 12/03/17 12/03/17 Elemental)] Folic Acid 1 mg PO DAILY 12/03/17 12/03/17 Ondansetron HCl [Zofran] 4 mg PO Q8H PRN 12/03/17 12/03/17 Venlafaxine HCl [Effexor XR] 75 mg PO DAILY 12/03/17 12/03/17 Previous Rx's Medication Instructions Recorded Nicotine 21Mg/24Hr Patch [Habitrol] 1 patch TRANSDERM DAILY #30 patch 12/07/17 Famotidine [Pepcid] 20 mg PO DAILY #7 tablet 08/31/18 diphenhydrAMINE [Benadryl] 25 mg PO TID PRN #21 capsule 08/31/18 methylPREDNISolone Dose Pack 4 mg PO DIRECTED #21 package 08/31/18 [Medrol Dose Pack] Ciprofloxacin HCl [Cipro] 500 mg PO Q12H #14 tab 09/04/18 Clindamycin [Cleocin] 450 mg PO Q6H 7 Days 09/04/18 L.acidoph,Paracasei, B.lactis 1 each PO DAILY #20 capsule 09/04/18 [Probiotic] Allergies Allergy/AdvReac Type Severity Reaction Status Date / Time Penicillins Allergy Rash/Hives Verified 09/04/18 18:45 Review of Systems ROS Statement: Those systems with pertinent positive or pertinent negative responses have been documented in the HPI. ROS Other: All systems not noted in ROS Statement are negative. Past Medical History Past Medical History: GERD/Reflux, Hypertension Additional Past Medical History / Comment(s): hx anemia, MIGRAINES, FX LT ANKLE(CASTED NO SX), CHRONIC BACK PAIN, IBS History of Any Multi-Drug Resistant Organisms: None Reported Past Surgical History: Back Surgery, Section, Cholecystectomy, Tubal Ligation Additional Past Surgical History / Comment(s): LAMINECTOMY X2. PAIN CLINIC PROCEDURES, D&C Past Anesthesia/Blood Transfusion Reactions: Previous Problems w/ Anesthesia, Motion Sickness, Postoperative Nausea & Vomiting (PONV) Additional Past Anesthesia/Blood Transfusion Reaction / Comment(s): Migraines after pain procedures. Difficulty waking up after anesthesia. Past Psychological History: Anxiety, Depression Smoking Status: Current some day smoker Past Alcohol Use History: Abuse, Daily Past Drug Use History: None Reported - Past Family History Father Additional Family Medical History / Comment(s): was alcoholic- from complications of drinking. Mother Family Medical History: Cancer Additional Family Medical History / Comment(s): kidney and liver cancer, depression,smoker General Exam - General Exam Comments Initial Comments: 3-year-old female. Alert and oriented. No distress. Limitations: no limitations General appearance: alert, in no apparent distress Head exam: Present: atraumatic, normocephalic, normal inspection Eye exam: Present: normal appearance, PERRL, EOMI. Absent: scleral icterus, conjunctival injection, periorbital swelling ENT exam: Present: normal exam, mucous membranes moist Neck exam: Present: normal inspection. Absent: tenderness, meningismus, lymphadenopathy Respiratory exam: Present: normal lung sounds bilaterally. Absent: respiratory distress, wheezes, rales, rhonchi, stridor Cardiovascular Exam: Present: regular rate, normal rhythm, normal heart sounds. Absent: systolic murmur, diastolic murmur, rubs, gallop, clicks GI/Abdominal exam: Present: soft, normal bowel sounds. Absent: distended, tenderness, guarding, rebound, rigid Extremities exam: Present: normal inspection, full ROM, normal capillary refill, other ( is erythema over the dorsum of the right hand. Evidence of small puncture wounds. No palpable abscess. Full range motion of the fingers noted. Full sensation distally.). Absent: tenderness, pedal edema, joint swelling, calf tenderness Back exam: Present: full ROM Neurological exam: Present: alert, oriented X3, CN II-XII intact Psychiatric exam: Present: normal affect, normal mood Skin exam: Present: warm, dry, intact, normal color. Absent: rash Course Vital Signs 09/04/18 18:40 Temperature 98.2 F Pulse Rate 115 H Respiratory 16 Rate Blood Pressure 156/88 O2 Sat by Pulse 98 Oximetry Medical Decision Making - Medical Decision Making Patient's 53-year-old female present 1 week after a Bite on her right hand. She was started on antibiotics out patiently and to subsequently developed an ALL ERGIC reaction. She's not been on antibiotics for the past 5 days. At this time Patient reports she had a reaction to Bactrim and an antibiotic that started with a deep. Patient's labwork was reviewed on [facility] Patient is full range of motion of her hand and fingers are for tenosynovitis at this time. Patient does have some superficial cellulitis over the dorsum of the hand. Patient is given IV clindamycin and will be discharged to the [facility]. Discussed appropriate follow-up with infectious disease a primary care doctor. I discussed that she return if there is any worsening signs or symptoms of redness in the next 48 hours. Patient agrees treatment plan will comply. - Lab Data Result diagrams: 09/04/18 19:18 09/04/18 19:18 Lab Results 09/04/18 09/04/18 Range/Units 19:18 19:18 WBC 8.3 (3.8-10.6) k/uL RBC 3.93 (3.80-5.40) m/uL Hgb 13.6 (11.4-16.0) gm/dL Hct 42.0 (34.0-46.0) % MCV 107.0 H (80.0-100.0) fL MCH 34.5 (25.0-35.0) pg MCHC 32.3 (31.0-37.0) g/dL RDW 12.6 (11.5-15.5) % Plt Count 107 L (150-450) k/uL Neutrophils % 65 % Lymphocytes % 23 % Monocytes % 8 % Eosinophils % 1 % Basophils % 0 % Neutrophils # 5.4 (1.3-7.7) k/uL Lymphocytes # 1.9 (1.0-4.8) k/uL Monocytes # 0.6 (0-1.0) k/uL Eosinophils # 0.1 (0-0.7) k/uL Basophils # 0.0 (0-0.2) k/uL Macrocytosis Moderate Sodium 142 (137-145) mmol/L Potassium 3.6 (3.5-5.1) mmol/L Chloride 106 (98-107) mmol/L Carbon Dioxide 21 L (22-30) mmol/L Anion Gap 15 mmol/L BUN 9 (7-17) mg/dL Creatinine 0.55 (0.52-1.04) mg/dL Est GFR (CKD-EPI)AfAm >90 (>60 ml/min/1.73 sqM) Est GFR (CKD-EPI)NonAf >90 (>60 ml/min/1.73 sqM) Glucose 103 H (74-99) mg/dL Calcium 10.3 H (8.4-10.2) mg/dL - Radiology Data Radiology results: report reviewed Normal right hand x-ray, with no fracture. Evidence of some soft tissue swelling. Disposition Clinical Impression: Cat bite of hand, Cellulitis Disposition: HOME SELF-CARE Condition: Good Additional Instructions: Take antibiotic as prescribed. Patient should have close follow-up with primary care physician. There is any worsening redness or swelling over the next 2 days please return for reevaluation. Motrin Tylenol for pain. Keep hand up and elevated. Prescriptions: Ciprofloxacin HCl [Cipro] 500 mg PO Q12H #14 tab Clindamycin [Cleocin] 450 mg PO Q6H 7 Days L.acidoph,Paracasei, B.lactis [Probiotic] 1 each PO DAILY #20 capsule Is patient prescribed a controlled substance at d/c from ED?: No Referrals: Jesus Baumann MD [Primary Care Provider] - 1-2 days Time of Disposition: 20:26
[2018-09-04 19:27] LABS: Basophils % (A) 0 %; Eosinophils # (A) 0.1 k/uL (0-0.7); Eosinophils % (A) 1 %; HGB 13.6 gm/dL (11.4-16.0); Lymphocytes # (A) 1.9 k/uL (1.0-4.8); Lymphocytes % (A) 23 %; MCH 34.5 pg (25.0-35.0); MCHC 32.3 g/dL (31.0-37.0); Macrocytosis Moderate; Mean Platelet Volume 8.3; Monocytes # (A) 0.6 k/uL (0-1.0); Monocytes % (A) 8 %; Neutrophils # (A) 5.4 k/uL (1.3-7.7); Neutrophils % (A) 65 %; Platelet Count 107 k/uL (150-450); RBC 3.93 m/uL (3.80-5.40); RDW 12.6 % (11.5-15.5); WBC 8.3 k/uL (3.8-10.6)
[2018-09-04 19:50] LABS: Anion Gap 15 mmol/L; Blood Urea Nitrogen 9 mg/dL (7-17); Calcium 10.3 mg/dL (8.4-10.2); Carbon Dioxide 21 mmol/L (22-30); Chloride 106 mmol/L (98-107); Glucose 103 mg/dL (74-99); Potassium 3.6 mmol/L (3.5-5.1); Sodium 142 mmol/L (137-145)
--- NOTE | 2018-09-04 19:59 | XR ---
EXAMINATION TYPE: XR hand complete RT DATE OF EXAM: 09/04/2018 COMPARISON: NONE HISTORY: Pain and swelling TECHNIQUE: 3 views FINDINGS: The metacarpals are intact. I see no fracture. There is soft tissue swelling on the dorsum of the hand. IMPRESSION: Soft tissue swelling. No fracture seen.
[2018-09-04] MEDS ORDERED: CIPROFLOXACIN HCL 500 MG TAB PO STA (20:13)
[2018-09-04 20:32] VITALS: BP 143/96; PULSE 105
== END 2018-09-04 20:57 | disposition home or self-care (01) ==
LOC: EC 18:37
DX: S61.451A Open bite of right hand, initial encounter (principal); L03.113 Cellulitis of right upper limb; I10 Essential (primary) hypertension; F32.9 Major depressive disorder, single episode, unspecified; F41.9 Anxiety disorder, unspecified; F17.200 Nicotine dependence, unspecified, uncomplicated; Z79.899 Other long term (current) drug therapy; Z88.0 Allergy status to penicillin; W55.01XA Bitten by cat, initial encounter
CPT/HCPCS: 36415; 80048; 85025; 73130; 90715; 99284; 96365; 96375; 90471; J1885

== ENCOUNTER 2018-11-21 10:10 | Emergency (ER) | payer OTHER ==
--- NOTE | 2018-11-21 10:57 | CT ---
EXAMINATION TYPE: CT brain cspine wo con DATE OF EXAM: 11/21/2018 COMPARISON: 10/15/2009 HISTORY: Fall, ETOH CT DLP: 1304.9 mGycm, Automated exposure control for dose reduction was used. CONTRAST: Patient injected with 0 mL of Isovue 300. CT of the brain is performed utilizing 3 mm thick sections through the posterior fossa and 3 mm thick sections through the remaining calvarium. Study is performed within 24 hours of arrival to the hospital. There is hyperintensity within the subdural or cortical region of the left frontal calvarium. This m easures 0.3 x 0.8 cm. Series 201 image 40. This could be posttraumatic in nature. No additional hemor rhage is evident. No hemorrhage within the ventricles is evident. The peduncular cistern is without f luid. Is a new finding from 2009. No mass lesion is evident. No acute infarcts are evident. There is likely been interval lacunar infarcts within the inferior la teral left basal ganglion. Ventricles and sulci are appropriate for the patient age. Quadrigeminal plate and ambient cisterns a re normal. Paranasal sinuses and mastoid air cells within the [id number] are clear. IMPRESSIONS: 1. Tiny petechial cortical hemorrhage or small subdural hemorrhage adjacent to the cortex medial left frontal lobe vertex. Report was called to emergency room Dr. Reyes by Dr. Alcazar by telephone [phone] 11/22/2019 05/30/2018. CT cervical spine. COMPARISON: None CT of the cervical spine is performed in the axial plane at 2 mm thick sections. Reconstructed image s in the coronal, and sagittal plane are reviewed on the computer. No acute fractures are evident. Vertebral body alignment is normal. Disc heights are preserved. Vertebral body heights are preserved. No spinal canal stenosis is evident. No neural foraminal stenosis is evident. IMPRESSIONS: 1. Normal CT cervical spine.
--- NOTE | 2018-11-21 11:12 | ED ---
General Adult HPI - General Chief complaint: Fall Stated complaint: Fall Time Seen by Provider: 11/21/18 10:13 Source: patient, EMS, RN notes reviewed Mode of arrival: EMS Limitations: no limitations - History of Present Illness Initial comments: 53-year-old female with a past medical history of hypertension, GERD, migraines, chronic back pain, IBS, alcohol abuse disorder, depression, anxiety who presents to the emergency department for a chief complaint of fall. Patient states she was trying to walk up an embankment earlier today and fell backwards. States she has a history of "equilibrium problems." Patient states she did hit her head. Denies loss of consciousness. Denies blood thinners. Patient was brought in by EMS, likely a laceration to the back of the head although c-collar is in place. Patient denies any pain whatsoever at this time. Patient does admit to drinking alcohol last night denies drinking alcohol this morning. Sonia vigils up-to-date, given at this facility on 09/04/2018. Patient has no other complaints at this time including shortness of breath, chest pain, abdominal pain, nausea or vomiting, headache, or visual changes. - Related Data Home Medications Medication Instructions Recorded Confirmed Thiamine [Vitamin B-1] 100 mg PO DAILY 10/22/17 12/03/17 Atenolol [Tenormin] 25 mg PO DAILY 12/03/17 12/03/17 Cholecalciferol (Vitamin D3) 2,000 unit PO DAILY 12/03/17 12/03/17 [Vitamin D3] Dicyclomine [Bentyl] 20 mg PO Q12H PRN 12/03/17 12/03/17 Ferrous Sulfate [Iron (65 MG 325 mg PO DAILY 12/03/17 12/03/17 Elemental)] Folic Acid 1 mg PO DAILY 12/03/17 12/03/17 Ondansetron HCl [Zofran] 4 mg PO Q8H PRN 12/03/17 12/03/17 Venlafaxine HCl [Effexor XR] 75 mg PO DAILY 12/03/17 12/03/17 Previous Rx's Medication Instructions Recorded Nicotine 21Mg/24Hr Patch [Habitrol] 1 patch TRANSDERM DAILY #30 patch 12/07/17 Famotidine [Pepcid] 20 mg PO DAILY #7 tablet 08/31/18 diphenhydrAMINE [Benadryl] 25 mg PO TID PRN #21 capsule 08/31/18 methylPREDNISolone Dose Pack 4 mg PO DIRECTED #21 package 08/31/18 [Medrol Dose Pack] Ciprofloxacin HCl [Cipro] 500 mg PO Q12H #14 tab 09/04/18 Clindamycin [Cleocin] 450 mg PO Q6H 7 Days 09/04/18 L.acidoph,Paracasei, B.lactis 1 each PO DAILY #20 capsule 09/04/18 [Probiotic] Allergies Allergy/AdvReac Type Severity Reaction Status Date / Time Penicillins Allergy Rash/Hives Verified 11/21/18 10:29 Review of Systems ROS Statement: Those systems with pertinent positive or pertinent negative responses have been documented in the HPI. ROS Other: All systems not noted in ROS Statement are negative. Past Medical History Past Medical History: GERD/Reflux, Hypertension Additional Past Medical History / Comment(s): hx anemia, MIGRAINES, FX LT ANKLE(CASTED NO SX), CHRONIC BACK PAIN, IBS History of Any Multi-Drug Resistant Organisms: None Reported Past Surgical History: Back Surgery, Section, Cholecystectomy, Tubal Ligation Additional Past Surgical History / Comment(s): LAMINECTOMY X2. PAIN CLINIC PROCEDURES, D&C Past Anesthesia/Blood Transfusion Reactions: Previous Problems w/ Anesthesia, Motion Sickness, Postoperative Nausea & Vomiting (PONV) Additional Past Anesthesia/Blood Transfusion Reaction / Comment(s): Migraines after pain procedures. Difficulty waking up after anesthesia. Past Psychological History: Anxiety, Depression Smoking Status: Current some day smoker Past Alcohol Use History: Abuse, Daily Past Drug Use History: None Reported - Past Family History Father Additional Family Medical History / Comment(s): was alcoholic- from complications of drinking. Mother Family Medical History: Cancer Additional Family Medical History / Comment(s): kidney and liver cancer, depression,smoker General Exam Limitations: no limitations General appearance: alert, appears intoxicated, anxious Head exam: Absent: atraumatic (There is a small laceration noted under c-collar, blood noted in hair) Eye exam: Present: normal appearance, PERRL, EOMI. Absent: scleral icterus, conjunctival injection, periorbital swelling ENT exam: Present: normal exam, normal oropharynx, mucous membranes moist, TM's normal bilaterally, normal external ear exam Neck exam: Present: normal inspection, full ROM. Absent: tenderness, meningismus, lymphadenopathy Respiratory exam: Present: normal lung sounds bilaterally. Absent: respiratory distress, wheezes, rales, rhonchi, stridor Cardiovascular Exam: Present: regular rate, normal rhythm, normal heart sounds. Absent: systolic murmur, diastolic murmur, rubs, gallop, clicks GI/Abdominal exam: Present: soft, normal bowel sounds. Absent: distended, tenderness, guarding, rebound, rigid Extremities exam: Present: full ROM (Full range of motion of all extremities including lower extremities and knees, capillary refill less than 2 seconds in all extremities, DP pulses 2+ and equal bilaterally.), other (Patient does have abrasions noted to bilateral knees.) Back exam: Absent: vertebral tenderness (No cervical thoracic or lumbar spine tenderness.) Neurological exam: Present: alert, oriented X3, CN II-XII intact Psychiatric exam: Present: normal affect, normal mood Course Vital Signs 11/21/18 11/21/18 11/21/18 10:27 11:03 11:20 Temperature 99.0 F Pulse Rate 99 104 H 100 Respiratory 18 18 20 Rate Blood Pressure 94/71 109/71 85/72 O2 Sat by Pulse 100 96 97 Oximetry Medical Decision Making - Medical Decision Making Felicita is a 53-year-old female with a past medical history of hypertension, GERD, migraines, chronic back pain, IBS, alcohol abuse disorder who presents for a chief complaint of fall. Patient was trying to walk up an embankment earlier today and fell backwards, history of equilibrium problems. Patient did hit her head without loss of consciousness. Denies blood thinner use. On presentation patient does appear intoxicated and EtOH is 147. C-collar is in place. Patient denying any pain. There does appear to likely be a laceration under c-collar however at this time this cannot be stapled due to c-collar placement. Patient does have abrasion noted to bilateral knees, full range of motion of all extremities. No pain in the knees. No focal neurologic deficits. Vitals are stable, patient initially hypotensive but this did improve. Patient given a liter of fluids. CT does show tiny petechial cortical hemorrhage or small subdural hemorrhage adjacent to the cortical medial left frontal lobe vertex. CT cervical spine shows a normal CT however given intoxication patient will remain in c-collar placement. Discussed case with physician at [facility], does accept this transfer. CBC CMP PTT PT/INR hCG are pending at this facility. - Lab Data Result diagrams: 11/21/18 11:00 11/21/18 11:00 Lab Results 11/21/18 11/21/18 Range/Units 11:00 11:00 WBC 8.0 (3.8-10.6) k/uL RBC 3.34 L (3.80-5.40) m/uL Hgb 11.6 (11.4-16.0) gm/dL Hct 35.2 (34.0-46.0) % MCV 105.5 H (80.0-100.0) fL MCH 34.8 (25.0-35.0) pg MCHC 33.0 (31.0-37.0) g/dL RDW 13.1 (11.5-15.5) % Plt Count 120 L (150-450) k/uL Neutrophils % 73 % Lymphocytes % 19 % Monocytes % 5 % Eosinophils % 1 % Basophils % 0 % Neutrophils # 5.8 (1.3-7.7) k/uL Lymphocytes # 1.5 (1.0-4.8) k/uL Monocytes # 0.4 (0-1.0) k/uL Eosinophils # 0.1 (0-0.7) k/uL Basophils # 0.0 (0-0.2) k/uL Macrocytosis Slight Sodium 134 L (137-145) mmol/L Potassium 3.6 (3.5-5.1) mmol/L Chloride 99 (98-107) mmol/L Carbon Dioxide 20 L (22-30) mmol/L Anion Gap 15 mmol/L BUN 4 L (7-17) mg/dL Creatinine 0.77 (0.52-1.04) mg/dL Est GFR (CKD-EPI)AfAm >90 (>60 ml/min/1.73 sqM) Est GFR (CKD-EPI)NonAf 87 (>60 ml/min/1.73 sqM) Glucose 94 (74-99) mg/dL Calcium 9.7 (8.4-10.2) mg/dL Total Bilirubin 0.9 (0.2-1.3) mg/dL AST 151 H (14-36) U/L ALT 56 H (9-52) U/L Alkaline Phosphatase 112 (38-126) U/L Total Protein 7.1 (6.3-8.2) g/dL Albumin 4.2 (3.5-5.0) g/dL Disposition Clinical Impression: Subdural hemorrhage, Fall, Alcohol intoxication Disposition: TRANSFER TO PSYCH HOSP/UNIT Condition: Serious Is patient prescribed a controlled substance at d/c from ED?: No Referrals: Jesus Baumann MD [Primary Care Provider] - 1-2 days Time of Disposition: 11:29 - Out of Hospital Transfer - Req. Specs Out of Hospital Transfer - Requested Specifics: Other Emergency Center ([facility])
[2018-11-21] MEDS ORDERED: LORazepam 2 MG/ML INJ IV STA (11:13)
[2018-11-21 11:14] LABS: Basophils % (A) 0 %; Eosinophils # (A) 0.1 k/uL (0-0.7); Eosinophils % (A) 1 %; HCT 35.2 % (34.0-46.0); HGB 11.6 gm/dL (11.4-16.0); Lymphocytes # (A) 1.5 k/uL (1.0-4.8); Lymphocytes % (A) 19 %; MCH 34.8 pg (25.0-35.0); MCV 105.5 fL (80.0-100.0); Macrocytosis Slight; Mean Platelet Volume 7.9; Monocytes # (A) 0.4 k/uL (0-1.0); Monocytes % (A) 5 %; Neutrophils # (A) 5.8 k/uL (1.3-7.7); Neutrophils % (A) 73 %; Platelet Count 120 k/uL (150-450); RBC 3.34 m/uL (3.80-5.40); RDW 13.1 % (11.5-15.5)
[2018-11-21 11:25] LABS: ALT 56 U/L (9-52); AST 151 U/L (14-36); African American GFR (CKD) >90 (>60 ml/min/1.73 sqM); Albumin 4.2 g/dL (3.5-5.0); Alkaline Phosphatase 112 U/L (38-126); Anion Gap 15 mmol/L; Blood Urea Nitrogen 4 mg/dL (7-17); Calcium 9.7 mg/dL (8.4-10.2); Carbon Dioxide 20 mmol/L (22-30); Chloride 99 mmol/L (98-107); Glucose 94 mg/dL (74-99); Potassium 3.6 mmol/L (3.5-5.1); Sodium 134 mmol/L (137-145); Total Bilirubin 0.9 mg/dL (0.2-1.3); Total Protein 7.1 g/dL (6.3-8.2)
[2018-11-21 11:28] VITALS: RESP 20
[2018-11-21] MEDS ORDERED: SODIUM CHLORIDE 0.9% 1,000 ML IV STA (11:28)
[2018-11-21 11:33] LABS: INR 1.1 (<1.2); Prothrombin Time 11.1 sec (9.0-12.0)
[2018-11-21 11:47] LABS: Partial Thromboplastin Time 21.8 sec (22.0-30.0)
[2018-11-21 11:48] VITALS: BP 107/97; PULSE 104; TEMP 98
== END 2018-11-21 11:48 ==
LOC: EC 10:10
DX: S06.5X0A Traumatic subdural hemorrhage without loss of consciousness, initial encounter (principal); F10.129 Alcohol abuse with intoxication, unspecified; S80.212A Abrasion, left knee, initial encounter; S80.211A Abrasion, right knee, initial encounter; I10 Essential (primary) hypertension; F41.9 Anxiety disorder, unspecified; F32.9 Major depressive disorder, single episode, unspecified; F17.200 Nicotine dependence, unspecified, uncomplicated; Z79.899 Other long term (current) drug therapy; Z88.0 Allergy status to penicillin
CPT/HCPCS: 36415; 70450; 72125; 80053; 84703; 85025; 85610; 85730; 99284

== ENCOUNTER → 2019-01-20 | Outpatient (CLI) | payer OTHER ==
--- NOTE | 2019-01-20 14:27 | MR ---
EXAMINATION TYPE: MR lumbar spine wo/w con DATE OF EXAM: 01/20/2019 COMPARISON: Prior lumbar MRI 07/29/2018 HISTORY: Low Back Pain TECHNIQUE: Multiplanar, multisequence images of the lumbar spine were acquired utilizing 7.5 mL intravenous Gada vist gadolinium contrast. Exam shows a stable appearance. Hemangioma is again noted with hyperintensity and T1 and T2-weighted sequences within the L3, T12 vertebral bodies. Loss of disc height and signal present at L5-S1 as on prior exam. Loss of disc signal present at additional intervertebral disc spaces at L4-5, L3-4 compat ible disc desiccation and degenerative disc disease, there is mild multilevel spondylosis and endplat e discogenic marrow signal change. Lumbar vertebral bodies show normal height and alignment, stable f rom prior exam. The conus shows an unremarkable appearance terminating at L1. Scar tissue postop berg ges again noted posterior to the lumbosacral junction as on prior exam. Axial images show at L5-S1 no significant spinal stenosis. No significant foraminal encroachment or e vident disc herniation. There is a focus of intermediate signal on T1 and T2-weighted sequences immed iately adjacent to the right S1 nerve root on axial image #6 which show some enhancement on contrast administration and which is seen on prior exam show some possible mass effect on the nerve root, an a symmetric appearance to the nerve roots at this level. This may be related to granulation tissue. L4-5 shows a posterior broad-based disc bulge as on prior exam causing minimal anterior mass effect o n the thecal sac. There is facet arthropathy with hypertrophy ligamentum flavum. No significant noelle inal encroachment. L3-4 shows posterior broad-based disc bulge causing mild anterior mass effect on the thecal sac. Ther e is some facet arthropathy. No significant spinal stenosis or foraminal encroachment. Minimal carlos a listhesis grade 1. L2-3: Posterior broad-based disc bulge causes minimal anterior mass effect on the thecal sac. No sign ificant spinal stenosis or foraminal encroachment. L1-2: Mild posterior broad-based disc bulge causes slight anterior mass effect on the thecal sac. No significant foraminal encroachment or spinal stenosis. No abnormal enhancement on contrast administration. IMPRESSION: Stable degenerative disc disease, facet arthropathy, postop changes. Abnormal signal may be related t o granulation tissue at the level of S1 nerve root on the right as described shows a similar appearan ce, correlate for right S1 radiculopathy.
== END | disposition home or self-care (01) ==
LOC: RADMRIMAIN 10:08
PROVIDERS: ATTEND Internal Medicine
DX: M51.36 Other intervertebral disc degeneration, lumbar region (principal); M46.96 Unspecified inflammatory spondylopathy, lumbar region; Z98.890 Other specified postprocedural states
CPT/HCPCS: 72158; A9585

== ENCOUNTER → 2019-03-24 | Outpatient (CLI) | payer OTHER ==
[2019-03-24 12:43] VITALS: BP 138/89; PULSE 132; RESP 16
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
== END | disposition home or self-care (01) ==
LOC: PNWHC3 11:52
PROVIDERS: ATTEND Anesthesiology
DX: M96.1 Postlaminectomy syndrome, not elsewhere classified (principal); M51.36 Other intervertebral disc degeneration, lumbar region; M47.816 Spondylosis without myelopathy or radiculopathy, lumbar region; F32.9 Major depressive disorder, single episode, unspecified; F41.9 Anxiety disorder, unspecified; F10.20 Alcohol dependence, uncomplicated; F17.200 Nicotine dependence, unspecified, uncomplicated; Z79.891 Long term (current) use of opiate analgesic; Z79.899 Other long term (current) drug therapy
CPT/HCPCS: 99211

== ENCOUNTER 2019-04-04 15:55 | Observation (INO) | payer OTHER ==
[2019-04-04] MEDS ORDERED: SODIUM CHLORIDE 0.9% 1,000 ML IV STA ×2 (16:38)
[2019-04-04] MEDS ORDERED: LORazepam 2 MG/ML INJ IV STA (16:38)
[2019-04-04] MEDS ORDERED: THIAMINE 100 MG/ML 2 ML VIAL IVP STA (16:38)
[2019-04-04] MEDS ORDERED: LORazepam 2 MG/ML INJ IV PRN ×4 (16:38→23:55)
[2019-04-04] MEDS ORDERED: SODIUM CHLORIDE 0.9% 500 ML 500 ML IV STA (16:38)
--- NOTE | 2019-04-04 16:39 | ED ---
Psych HPI - General Chief Complaint: Psychiatric Symptoms Stated Complaint: EPS eval Time Seen by Provider: 04/04/19 16:11 Source: patient, RN notes reviewed, old records reviewed Mode of arrival: ambulatory Limitations: altered mental status - History of Present Illness Initial Comments: This is a 54 female to the ED co alcohol intoxication, patient brought to ED by family to be evaluated by psychiatry. Patient has no copmlaints was supposed to go to dinner with family who brought patient to the ED for evaluation and petition for psychiatric evaluation. Patient denies homicide and suicidal thoughts, mildly delirius MD Complaint: altered mental status, other (alcohol abuse) -: unknown Associated Psychiatric Symptoms: depression, delusions Quality: constant Improves With: none Worsens With: none Context: recent alcohol abuse, not taking psychiatric medications Associated Symptoms: confusion Treatments Prior to Arrival: placed on mental health hold If Self Harm: other (none) - Related Data Home Medications Medication Instructions Recorded Confirmed Thiamine [Vitamin B-1] 100 mg PO DAILY 10/22/17 04/04/19 Atenolol [Tenormin] 25 mg PO DAILY 12/03/17 04/04/19 Cholecalciferol (Vitamin D3) 2,000 unit PO DAILY 12/03/17 04/04/19 [Vitamin D3] Ferrous Sulfate [Iron (65 MG 325 mg PO DAILY 12/03/17 04/04/19 Elemental)] Folic Acid 1 mg PO DAILY 12/03/17 04/04/19 Ondansetron HCl [Zofran] 4 mg PO Q8H PRN 12/03/17 04/04/19 Venlafaxine HCl [Effexor XR] 75 mg PO DAILY 12/03/17 04/04/19 Cyanocobalamin (Vitamin B-12) 1,000 mcg PO BID 03/24/19 04/04/19 [Vitamin B-12] HYDROcodone/APAP 10-325MG [[place] 1 tab PO Q6HR PRN 03/24/19 04/04/19 10-325] [place]-3 Fatty Acids [[place]-3] 1,000 mg PO DAILY 03/24/19 04/04/19 Memantine HCl [Namenda] 5 mg PO DAILY 04/04/19 04/04/19 Previous Rx's Medication Instructions Recorded Nicotine 21Mg/24Hr Patch [Habitrol] 1 patch TRANSDERM DAILY #30 patch 12/07/17 Famotidine [Pepcid] 20 mg PO DAILY #7 tablet 08/31/18 Allergies Allergy/AdvReac Type Severity Reaction Status Date / Time doxycycline Allergy Anaphylaxis Verified 04/04/19 18:05 Penicillins Allergy Rash/Hives Verified 04/04/19 18:05 Review of Systems ROS Statement: Those systems with pertinent positive or pertinent negative responses have been documented in the HPI. ROS Other: All systems not noted in ROS Statement are negative. Past Medical History Past Medical History: GERD/Reflux, Hypertension Additional Past Medical History / Comment(s): hx anemia, MIGRAINES, FX LT ANKLE(CASTED NO SX), CHRONIC BACK PAIN, IBS ptsd History of Any Multi-Drug Resistant Organisms: None Reported Past Surgical History: Back Surgery, Section, Cholecystectomy, Tubal Ligation Additional Past Surgical History / Comment(s): LAMINECTOMY X2. PAIN CLINIC PROCEDURES, D&C Past Anesthesia/Blood Transfusion Reactions: Previous Problems w/ Anesthesia, Motion Sickness, Postoperative Nausea & Vomiting (PONV) Additional Past Anesthesia/Blood Transfusion Reaction / Comment(s): Migraines after pain procedures. Difficulty waking up after anesthesia. Past Psychological History: Anxiety, Depression, PTSD Smoking Status: Current some day smoker Past Alcohol Use History: Abuse, Daily Past Drug Use History: None Reported - Past Family History Father Additional Family Medical History / Comment(s): was alcoholic- from complications of drinking. Mother Family Medical History: Cancer Additional Family Medical History / Comment(s): kidney and liver cancer, depression,smoker General Exam Limitations: no limitations General appearance: alert, in no apparent distress Head exam: Present: atraumatic, normocephalic, normal inspection Eye exam: Present: normal appearance, PERRL, EOMI. Absent: scleral icterus, conjunctival injection, periorbital swelling ENT exam: Present: normal exam, mucous membranes moist Neck exam: Present: normal inspection. Absent: tenderness, meningismus, lymphadenopathy Respiratory exam: Present: normal lung sounds bilaterally. Absent: respiratory distress, wheezes, rales, rhonchi, stridor Cardiovascular Exam: Present: regular rate, normal rhythm, normal heart sounds. Absent: systolic murmur, diastolic murmur, rubs, gallop, clicks GI/Abdominal exam: Present: soft, normal bowel sounds. Absent: distended, tenderness, guarding, rebound, rigid Extremities exam: Present: normal inspection, full ROM, normal capillary refill. Absent: tenderness, pedal edema, joint swelling, calf tenderness Back exam: Present: normal inspection Neurological exam: Present: alert, oriented X3, CN II-XII intact Psychiatric exam: Present: normal affect, normal mood Skin exam: Present: warm, dry, intact, normal color. Absent: rash Course Vital Signs 04/04/19 04/04/19 16:29 18:35 Temperature 97.9 F Pulse Rate 118 H 106 H Respiratory 18 18 Rate Blood Pressure 155/100 144/102 O2 Sat by Pulse 98 98 Oximetry - Reevaluation(s) Reevaluation #1: 04/04/19 20:40 medical record is reviewed, clear for psychiatric evaluation Reevaluation #2: 04/04/19 20:40 patient seen and evaluated by psychiatry Medical Decision Making - Medical Decision Making 54 female to the ED co alcohol use disorder, seen by psychiatry not suicidal, not homicidal, safe for discharge. - Lab Data Result diagrams: 04/04/19 16:50 04/04/19 16:50 Lab Results 04/04/19 04/04/19 04/04/19 Range/Units 16:50 16:50 16:50 WBC 4.7 (3.8-10.6) k/uL RBC 3.30 L (3.80-5.40) m/uL Hgb 11.4 (11.4-16.0) gm/dL Hct 34.0 (34.0-46.0) % MCV 103.2 H (80.0-100.0) fL MCH 34.7 (25.0-35.0) pg MCHC 33.7 (31.0-37.0) g/dL RDW 14.2 (11.5-15.5) % Plt Count 131 L (150-450) k/uL Neutrophils % 55 % Lymphocytes % 33 % Monocytes % 6 % Eosinophils % 3 % Basophils % 0 % Neutrophils # 2.6 (1.3-7.7) k/uL Lymphocytes # 1.6 (1.0-4.8) k/uL Monocytes # 0.3 (0-1.0) k/uL Eosinophils # 0.2 (0-0.7) k/uL Basophils # 0.0 (0-0.2) k/uL Macrocytosis Slight PT 10.9 (9.0-12.0) sec INR 1.0 (<1.2) Sodium 142 (137-145) mmol/L Potassium 4.1 (3.5-5.1) mmol/L Chloride 109 H (98-107) mmol/L Carbon Dioxide 23 (22-30) mmol/L Anion Gap 10 mmol/L BUN 9 (7-17) mg/dL Creatinine 0.56 (0.52-1.04) mg/dL Est GFR (CKD-EPI)AfAm >90 (>60 ml/min/1.73 sqM) Est GFR (CKD-EPI)NonAf >90 (>60 ml/min/1.73 sqM) Glucose 93 (74-99) mg/dL Calcium 9.1 (8.4-10.2) mg/dL Phosphorus 3.1 (2.5-4.5) mg/dL Magnesium 1.6 (1.6-2.3) mg/dL Total Bilirubin 0.4 (0.2-1.3) mg/dL AST 68 H (14-36) U/L ALT 42 (9-52) U/L Alkaline Phosphatase 90 (38-126) U/L Ammonia (<30) umol/L Total Protein 7.0 (6.3-8.2) g/dL Albumin 4.2 (3.5-5.0) g/dL Lipase 30 (23-300) U/L Urine Color Urine Appearance (Clear) Urine pH (5.0-8.0) Ur Specific [place] (1.001-1.035) Urine Protein (Negative) Urine Glucose (UA) (Negative) Urine Ketones (Negative) Urine Blood (Negative) Urine Nitrite (Negative) Urine Bilirubin (Negative) Urine Urobilinogen (<2.0) mg/dL Ur Leukocyte Esterase (Negative) Urine RBC (0-5) /hpf Urine WBC (0-5) /hpf Ur Squamous Epith Cells (0-4) /hpf Hyaline Casts (0-2) /lpf Urine Mucus (None) /hpf Urine Opiates Screen (NotDetected) Ur Oxycodone Screen (NotDetected) Urine Methadone Screen (NotDetected) Ur Propoxyphene Screen (NotDetected) Ur Barbiturates Screen (NotDetected) U Tricyclic Antidepress (NotDetected) Ur Phencyclidine Scrn (NotDetected) Ur Amphetamines Screen (NotDetected) U Methamphetamines Scrn (NotDetected) U Benzodiazepines Scrn (NotDetected) Urine Cocaine Screen (NotDetected) U Marijuana (THC) Screen (NotDetected) Serum Alcohol 81 mg/dL 04/04/19 04/04/19 Range/Units 16:50 17:10 WBC (3.8-10.6) k/uL RBC (3.80-5.40) m/uL Hgb (11.4-16.0) gm/dL Hct (34.0-46.0) % MCV (80.0-100.0) fL MCH (25.0-35.0) pg MCHC (31.0-37.0) g/dL RDW (11.5-15.5) % Plt Count (150-450) k/uL Neutrophils % % Lymphocytes % % Monocytes % % Eosinophils % % Basophils % % Neutrophils # (1.3-7.7) k/uL Lymphocytes # (1.0-4.8) k/uL Monocytes # (0-1.0) k/uL Eosinophils # (0-0.7) k/uL Basophils # (0-0.2) k/uL Macrocytosis PT (9.0-12.0) sec INR (<1.2) Sodium (137-145) mmol/L Potassium (3.5-5.1) mmol/L Chloride (98-107) mmol/L Carbon Dioxide (22-30) mmol/L Anion Gap mmol/L BUN (7-17) mg/dL Creatinine (0.52-1.04) mg/dL Est GFR (CKD-EPI)AfAm (>60 ml/min/1.73 sqM) Est GFR (CKD-EPI)NonAf (>60 ml/min/1.73 sqM) Glucose (74-99) mg/dL Calcium (8.4-10.2) mg/dL Phosphorus (2.5-4.5) mg/dL Magnesium (1.6-2.3) mg/dL Total Bilirubin (0.2-1.3) mg/dL AST (14-36) U/L ALT (9-52) U/L Alkaline Phosphatase (38-126) U/L Ammonia 22 (<30) umol/L Total Protein (6.3-8.2) g/dL Albumin (3.5-5.0) g/dL Lipase (23-300) U/L Urine Color Light Yellow Urine Appearance Cloudy H (Clear) Urine pH 5.5 (5.0-8.0) Ur Specific [place] 1.011 (1.001-1.035) Urine Protein Negative (Negative) Urine Glucose (UA) Negative (Negative) Urine Ketones Negative (Negative) Urine Blood Trace H (Negative) Urine Nitrite Negative (Negative) Urine Bilirubin Negative (Negative) Urine Urobilinogen <2.0 (<2.0) mg/dL Ur Leukocyte Esterase Small H (Negative) Urine RBC 1 (0-5) /hpf Urine WBC 1 (0-5) /hpf Ur Squamous Epith Cells 6 H (0-4) /hpf Hyaline Casts 1 (0-2) /lpf Urine Mucus Rare H (None) /hpf Urine Opiates Screen Detected H (NotDetected) Ur Oxycodone Screen Not Detected (NotDetected) Urine Methadone Screen Not Detected (NotDetected) Ur Propoxyphene Screen Not Detected (NotDetected) Ur Barbiturates Screen Not Detected (NotDetected) U Tricyclic Antidepress Detected H (NotDetected) Ur Phencyclidine Scrn Not Detected (NotDetected) Ur Amphetamines Screen Not Detected (NotDetected) U Methamphetamines Scrn Not Detected (NotDetected) U Benzodiazepines Scrn Not Detected (NotDetected) Urine Cocaine Screen Not Detected (NotDetected) U Marijuana (THC) Screen Not Detected (NotDetected) Serum Alcohol mg/dL Disposition Clinical Impression: Alcoholic hepatitis, ETOHism Disposition: HOME SELF-CARE Condition: Good Instructions (If sedation given, give patient instructions): Alcohol Use Disorder (ED) Is patient prescribed a controlled substance at d/c from ED?: No Referrals: Bobby Hall MD [Primary Care Provider] - 1-2 days
[2019-04-04 17:13] LABS: Basophils % (A) 0 %; Eosinophils # (A) 0.2 k/uL (0-0.7); Eosinophils % (A) 3 %; HGB 11.4 gm/dL (11.4-16.0); Lymphocytes # (A) 1.6 k/uL (1.0-4.8); Lymphocytes % (A) 33 %; MCH 34.7 pg (25.0-35.0); MCHC 33.7 g/dL (31.0-37.0); MCV 103.2 fL (80.0-100.0); Macrocytosis Slight; Mean Platelet Volume 7.4; Monocytes # (A) 0.3 k/uL (0-1.0); Monocytes % (A) 6 %; Neutrophils # (A) 2.6 k/uL (1.3-7.7); Neutrophils % (A) 55 %; Platelet Count 131 k/uL (150-450); RDW 14.2 % (11.5-15.5); WBC 4.7 k/uL (3.8-10.6)
[2019-04-04 17:14] LABS: Prothrombin Time 10.9 sec (9.0-12.0)
[2019-04-04 17:22] LABS: ALT 42 U/L (9-52); AST 68 U/L (14-36); African American GFR (CKD) >90 (>60 ml/min/1.73 sqM); Albumin 4.2 g/dL (3.5-5.0); Alkaline Phosphatase 90 U/L (38-126); Anion Gap 10 mmol/L; Blood Urea Nitrogen 9 mg/dL (7-17); Calcium 9.1 mg/dL (8.4-10.2); Carbon Dioxide 23 mmol/L (22-30); Chloride 109 mmol/L (98-107); Glucose 93 mg/dL (74-99); Magnesium 1.6 mg/dL (1.6-2.3); Non-African American GFR(CKD) >90 (>60 ml/min/1.73 sqM); Phosphorus 3.1 mg/dL (2.5-4.5); Potassium 4.1 mmol/L (3.5-5.1); Sodium 142 mmol/L (137-145); Total Bilirubin 0.4 mg/dL (0.2-1.3)
[2019-04-04 17:26] LABS: Alcohol 81 mg/dL
[2019-04-04 17:26] LABS: Appearance,Urine Cloudy (Clear); Bilirubin,Urine Negative (Negative); Blood,Urine Trace (Negative); Color,Urine Light Yellow; Glucose,Urine (UA) Negative (Negative); Hyaline Casts,Urine 1 /lpf (0-2); Ketones,Urine Negative (Negative); Leukocyte Esterase,Urine Small (Negative); Mucus,Urine Rare /hpf; Nitrite,Urine Negative (Negative); PH, Urine 5.5 (5.0-8.0); Protein,Urine Negative (Negative); RBC,Urine 1 /hpf (0-5); Specific Gravity,Urine 1.011 (1.001-1.035); Squamous Epithelial Cell,Urine 6 /hpf (0-4); Urobilinogen,Urine <2.0 mg/dL (<2.0); WBC,Urine 1 /hpf (0-5)
[2019-04-04 17:33] LABS: Amphetamine Screen,Urine Not Detected (NotDetected); Barbiturate Screen,Urine Not Detected (NotDetected); Benzodiazepines Screen,Urine Not Detected (NotDetected); Cocaine Screen,Urine Not Detected (NotDetected); Methadone Screen, Urine Not Detected (NotDetected); Opiate Screen,Urine Detected (NotDetected); Oxycodone Screen, Urine Not Detected (NotDetected); Phencyclidine Screen,Urine Not Detected (NotDetected); Tricyclic Antidepressant,Urine Detected (NotDetected); Urn Cannabinoid Scrn Not Detected (NotDetected)
[2019-04-04] MEDS ORDERED: ONDANSETRON 4 MG/2 ML VIAL IVP PRN (23:55)
[2019-04-05] MEDS ORDERED: IBUPROFEN 600 MG TAB PO STA (06:38)
[2019-04-05] MEDS: THIAMINE 100 MG TAB PO SCH ×2 (08:19→08:36)
[2019-04-05 08:24] VITALS: RESP 16
[2019-04-05] MEDS ORDERED: MULTIVITAMINS, THERA 1 EACH TAB PO SCH (09:00)
[2019-04-05 12:33] VITALS: BP 112/71; PULSE 106; TEMP 99.1
--- NOTE | 2019-04-05 13:53 | P.DS ---
Providers Date of admission: 04/04/19 23:44 Attending physician: Rubia Alicia Consults: 04/04/19 23:55 Consult Physician Routine Consulting Provider: Chacorta Wolfe Consult Reason/Comments: depression/etoh Do you want consulting provider notified?: Yes Primary care physician: Bobby Hall MD Hospital Course: Please refer to my HPI for further details Patient Condition at Discharge: Good Plan - Discharge Summary New Discharge Prescriptions: Continue Thiamine [Vitamin B-1] 100 mg PO DAILY Venlafaxine HCl [Effexor XR] 150 mg PO HS Folic Acid 1 mg PO DAILY Ferrous Sulfate [Iron (65 MG Elemental)] 325 mg PO DAILY Atenolol [Tenormin] 25 mg PO BID Cholecalciferol (Vitamin D3) [Vitamin D3] 2,000 unit PO DAILY Ondansetron HCl [Zofran] 4 mg PO Q8H PRN PRN Reason: Nausea Nicotine 21Mg/24Hr Patch [Habitrol] 1 patch TRANSDERM DAILY #30 patch Famotidine [Pepcid] 20 mg PO DAILY #7 tablet [place]-3 Fatty Acids [[place]-3] 1,000 mg PO DAILY Cyanocobalamin (Vitamin B-12) [Vitamin B-12] 1,000 mcg PO BID HYDROcodone/APAP 10-325MG [[place] 10-325] 1 tab PO Q8H PRN PRN Reason: Moderate To Severe Pain Memantine HCl [Namenda] 5 mg PO BID Loperamide [Imodium] 2 mg PO QID Venlafaxine HCl ER [Effexor XR] 75 mg PO DAILY Discharge Medication List Thiamine [Vitamin B-1] 100 mg PO DAILY 10/22/17 [History] Atenolol [Tenormin] 25 mg PO BID 12/03/17 [History] Cholecalciferol (Vitamin D3) [Vitamin D3] 2,000 unit PO DAILY 12/03/17 [History] Ferrous Sulfate [Iron (65 MG Elemental)] 325 mg PO DAILY 12/03/17 [History] Folic Acid 1 mg PO DAILY 12/03/17 [History] Ondansetron HCl [Zofran] 4 mg PO Q8H PRN 12/03/17 [History] Venlafaxine HCl [Effexor XR] 150 mg PO HS 12/03/17 [History] Nicotine 21Mg/24Hr Patch [Habitrol] 1 patch TRANSDERM DAILY #30 patch 12/07/17 [Rx] Famotidine [Pepcid] 20 mg PO DAILY #7 tablet 08/31/18 [Rx] Cyanocobalamin (Vitamin B-12) [Vitamin B-12] 1,000 mcg PO BID 03/24/19 [History] HYDROcodone/APAP 10-325MG [[place] 10-325] 1 tab PO Q8H PRN 03/24/19 [History] [place]-3 Fatty Acids [[place]-3] 1,000 mg PO DAILY 03/24/19 [History] Memantine HCl [Namenda] 5 mg PO BID 04/04/19 [History] Loperamide [Imodium] 2 mg PO QID 04/05/19 [History] Venlafaxine HCl ER [Effexor XR] 75 mg PO DAILY 04/05/19 [History] Follow up Appointment(s)/Referral(s): Bobby Hall MD [Primary Care Provider] - 3 Days Patient Instructions/Handouts: Alcohol Use Disorder (ED)
--- NOTE | 2019-04-05 13:53 | P.HPIM ---
History of Present Illness 54-year-old female admitted for alcohol intoxication patient was petitioned by by daughter who is medical power of estate planning attorney for the patient, although patient is alert oriented 3 at this time. Can make decisions at this time it but she had issues in the past after bleed into her brain as per the patient. Patient was patient petitioned us. Patient was doing started drinking alcohol lately and has been falling patient admits to drinking 2 beers Never had any withdrawals, he she doesn't expect any withdrawals at this time. Patient is depressed but denied any suicidal ideations. Patient becomes unstable and falls whenever she drinks. Although patient is really strong enough and walking around and fairly functional at this time. Patient did not receive much of Ativan. Patient is not having any significant withdrawals. Patient was evaluated by psychiatric cleared her for discharge patient will be discharged today to social work worked with the family and had a disposition plan. Patient is bit tachycardic which is reflex tachycardia she didn't receive her atenolol today and her MCV is bit elevated secondary to alcoholism. Patient admits to drinking vodka in the past and she cut it down she is trying to clean herself up. Review of Systems REVIEW OF SYSTEMS: CONSTITUTIONAL: No fever, no malaise, no fatigue. HEENT: No recent visual problems or hearing problems. Denied any sore throat. CARDIOVASCULAR: No chest pain, orthopnea, PND, no palpitations, no syncope. PULMONARY: No shortness of breath, no cough, no hemoptysis. GASTROINTESTINAL: No diarrhea, no nausea, no vomiting, no abdominal pain. NEUROLOGICAL: No headaches, no weakness, no numbness. HEMATOLOGICAL: Denies any bleeding or petechiae. GENITOURINARY: Denies any burning micturition, frequency, or urgency. MUSCULOSKELETAL/RHEUMATOLOGICAL: Denies any joint pain, swelling, or any muscle pain. ENDOCRINE: Denies any polyuria or polydipsia. The rest of the 14-point review of systems is negative. Past Medical History Past Medical History: GERD/Reflux, Hypertension Additional Past Medical History / Comment(s): hx anemia, MIGRAINES, FX LT A NKLE(CASTED NO SX), CHRONIC BACK PAIN, IBS, PTSD; Left hand fracture r/t fall at home History of Any Multi-Drug Resistant Organisms: None Reported Past Surgical History: Back Surgery, Section, Cholecystectomy, Tubal Ligation Additional Past Surgical History / Comment(s): LAMINECTOMY X2. PAIN CLINIC PROCEDURES, D&C Past Anesthesia/Blood Transfusion Reactions: Previous Problems w/ Anesthesia, Motion Sickness, Postoperative Nausea & Vomiting (PONV) Additional Past Anesthesia/Blood Transfusion Reaction / Comment(s): Migraines after pain procedures. Difficulty waking up after anesthesia. Past Psychological History: Anxiety, Depression, PTSD Additional Psychological History / Comment(s): pt is independant. lives alone in trailer that has 4 porch steps. 1 pet cat[address] does'nt drive.no medical equipment, no home care services. Smoking Status: Current some day smoker Past Alcohol Use History: Abuse, Daily Additional Past Alcohol Use History / Comment(s): started smoking 2005, smokes 1/2 ppd. pt stated 2007 was drinking vodka daily then swithced to beer around 2009 then after gallballder sx slowed down-currently drinks 2-3 beer /day Past Drug Use History: None Reported - Past Family History Father Additional Family Medical History / Comment(s): was alcoholic- from complications of drinking. Mother Family Medical History: Cancer Additional Family Medical History / Comment(s): kidney and liver cancer, depression,smoker Medications and Allergies Home Medications Medication Instructions Recorded Confirmed Type Thiamine [Vitamin B-1] 100 mg PO DAILY 10/22/17 04/04/19 History Atenolol [Tenormin] 25 mg PO BID 12/03/17 04/05/19 History Cholecalciferol (Vitamin D3) 2,000 unit PO DAILY 12/03/17 04/04/19 History [Vitamin D3] Ferrous Sulfate [Iron (65 MG 325 mg PO DAILY 12/03/17 04/04/19 History Elemental)] Folic Acid 1 mg PO DAILY 12/03/17 04/04/19 History Ondansetron HCl [Zofran] 4 mg PO Q8H PRN 12/03/17 04/04/19 History Venlafaxine HCl [Effexor XR] 150 mg PO HS 12/03/17 04/05/19 History Nicotine 21Mg/24Hr Patch [Habitrol] 1 patch TRANSDERM DAILY #30 patch 12/07/17 04/04/19 Rx Famotidine [Pepcid] 20 mg PO DAILY #7 tablet 08/31/18 04/04/19 Rx Cyanocobalamin (Vitamin B-12) 1,000 mcg PO BID 03/24/19 04/04/19 History [Vitamin B-12] HYDROcodone/APAP 10-325MG [[place] 1 tab PO Q8H PRN 03/24/19 04/05/19 History 10-325] [place]-3 Fatty Acids [[place]-3] 1,000 mg PO DAILY 03/24/19 04/04/19 History Memantine HCl [Namenda] 5 mg PO BID 04/04/19 04/05/19 History Loperamide [Imodium] 2 mg PO QID 04/05/19 04/05/19 History Venlafaxine HCl ER [Effexor Xr] 75 mg PO DAILY 04/05/19 04/05/19 History Allergies Allergy/AdvReac Type Severity Reaction Status Date / Time doxycycline Allergy Anaphylaxis Verified 04/04/19 18:05 Penicillins Allergy Rash/Hives Verified 04/04/19 18:05 Physical Exam Vitals: Vital Signs Temp Pulse Pulse Resp BP BP Pulse Ox 04/05/19 12:32 99.1 F 106 H 16 112/71 94 L 04/05/19 11:23 142/95 04/05/19 10:30 154/95 04/05/19 10:00 160/94 92 L 04/05/19 09:30 147/99 95 04/05/19 09:00 160/100 95 04/05/19 08:30 148/93 95 04/05/19 08:23 98.5 F 95 16 148/83 95 04/05/19 08:21 94 L 04/05/19 06:00 100 20 141/99 97 04/05/19 05:00 97.8 F 97 18 138/88 97 04/04/19 18:35 106 H 18 144/102 98 04/04/19 16:29 97.9 F 118 H 18 155/100 98 Intake and Output 04/04/19 04/05/19 04/05/19 22:59 06:59 14:59 Other: Weight 72.575 kg 72.575 kg PHYSICAL EXAMINATION: GENERAL: The patient is alert and oriented x3, not in any acute distress. Well developed, well nourished. HEENT: Pupils are round and equally reacting to light. EOMI. No scleral icterus. No conjunctival pallor. Normocephalic, atraumatic. No pharyngeal erythema. No thyromegaly. CARDIOVASCULAR: S1 and S2 present. No murmurs, rubs, or gallops. Tachycardic regular rhythm PULMONARY: Chest is clear to auscultation, no wheezing or crackles. ABDOMEN: Soft, nontender, nondistended, normoactive bowel sounds. No palpable organomegaly. MUSCULOSKELETAL: No joint swelling or deformity. EXTREMITIES: No cyanosis, clubbing, or pedal edema. NEUROLOGICAL: Gross neurological examination did not reveal any focal deficits. SKIN: No rashes. Results CBC & Chem 7: 04/04/19 16:50 04/04/19 16:50 Labs: Abnormal Lab Results - Last 24 Hours (Table) 04/04/19 04/04/19 04/04/19 Range/Units 16:50 16:50 17:10 RBC 3.30 L (3.80-5.40) m/uL MCV 103.2 H (80.0-100.0) fL Plt Count 131 L (150-450) k/uL Chloride 109 H (98-107) mmol/L AST 68 H (14-36) U/L Urine Appearance Cloudy H (Clear) Urine Blood Trace H (Negative) Ur Leukocyte Esterase Small H (Negative) Ur Squamous Epith Cells 6 H (0-4) /hpf Urine Mucus Rare H (None) /hpf Urine Opiates Screen Detected H (NotDetected) U Tricyclic Antidepress Detected H (NotDetected) Thrombosis Risk Factor Assmnt - Choose All That Apply Each Factor Represents 1 point: Age 41-60 years, Obesity (BMI >25) Thrombosis Risk Factor Assessment Total Risk Factor Score: 2 Thrombosis Risk Factor Assessment Level: Low Risk Assessment and Plan Plan: -Alcohol abuse: Counseling was provided patient doesn't have any significant withdrawals at this time -Depression denied any suicidal ideation, patient is cleared for discharge from psychiatric perspective discharged today -Gastroesophageal reflux disease -Hypertension continue with atenolol at home patient has reflects tachycardia as she did not receive this medication here -Nicotine abuse patient recently quit smoking -Chronic macrocytic anemia secondary to alcoholism No further intervention at this time patient will be discharged today
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
[2019-04-06] MEDS ORDERED: DEXTROSE 5%-0.45% NACL 1,000 ML IV SCH (23:44)
== END 2019-04-05 14:47 | disposition home or self-care (01) ==
LOC: EC 15:55 → EEVIPCON 15:55 → INTOOBSV 23:44 → 4MS4W 23:44 → UNDODISIN 04-05 14:47
PROVIDERS: ADMIT Hospitalist; ATTEND Hospitalist
DX: F10.229 Alcohol dependence with intoxication, unspecified (principal); Y90.4 Blood alcohol level of 80-99 mg/100 ml; K70.10 Alcoholic hepatitis without ascites; R41.82 Altered mental status, unspecified; R00.0 Tachycardia, unspecified; D53.9 Nutritional anemia, unspecified; F22 Delusional disorders; F32.9 Major depressive disorder, single episode, unspecified; I10 Essential (primary) hypertension; G43.909 Migraine, unspecified, not intractable, without status migrainosus; G89.29 Other chronic pain; M54.9 Dorsalgia, unspecified; F43.10 Post-traumatic stress disorder, unspecified; E66.9 Obesity, unspecified; Z68.25 Body mass index [BMI] 25.0-25.9, adult; K21.9 Gastro-esophageal reflux disease without esophagitis; F17.210 Nicotine dependence, cigarettes, uncomplicated; K58.9 Irritable bowel syndrome, unspecified; Z81.1 Family history of alcohol abuse and dependence; Z80.51 Family history of malignant neoplasm of kidney; Z80.0 Family history of malignant neoplasm of digestive organs; Z81.8 Family history of other mental and behavioral disorders; S52.92XD Unspecified fracture of left forearm, subsequent encounter for closed fracture with routine healing; W18.30XD Fall on same level, unspecified, subsequent encounter; Z90.49 Acquired absence of other specified parts of digestive tract; Z98.51 Tubal ligation status; Z98.890 Other specified postprocedural states; Z79.891 Long term (current) use of opiate analgesic; Z79.899 Other long term (current) drug therapy; Z88.1 Allergy status to other antibiotic agents; Z88.0 Allergy status to penicillin
CPT/HCPCS: 96361 ×2; 96374; 96375; 99285; 36415; 80053; 82140; 83690; 83735; 84100; 85025; 85610; 81001; 80306; G0378 ×2; G0480; J2060; J3411; 80320

== ENCOUNTER 2019-04-20 09:08 | Day surgery (SDC) | payer OTHER ==
[2019-04-19 10:37] VITALS: BMI 25.8
[~2019-04-20 09:08] MED LIST: LACTATED RINGERS 1,000 ML IV SCH
[2019-04-20 09:28] VITALS: TEMP 97.8
[2019-04-20] MEDS ORDERED: LACTATED RINGERS 1,000 ML IV ONE (09:29)
[2019-04-20] MEDS ORDERED: LIDOCAINE 1% 20 ML VIAL (10MG/ML) FOR IV START INTRADERMA ONE (09:29)
--- NOTE | 2019-04-20 10:15 | P.PCN ---
Date of Procedure: 04/20/19 Procedure(s) Performed: Procedure= bilateral sacral iliac joints steroid injection under fluoroscopy guidance (fluoroscopy image stored on file in the radiology Department ) Preoperative diagnosis= 1-bilateral sacroiliitis 2-lumbar degenerative disc disease 3-lumbar facet arthropathy 4-Failed back surgery syndrome lumbar area Postoperative diagnosis=1-bilateral sacroiliitis 2-lumbar degenerative disc disease 3-lumbar facet arthropathy 4-failed back surgery syndrome lumbar area Complication = none Condition= stable Anesthesia= moderate sedation with intravenous Versed 2 mg ,and local infiltration with lidocaine 1% 5 mL Indication for the procedure= patient complaining of low back pain , examination was positive for severe tenderness over the sacroiliac joints bilaterally and patient diagnosed with sacroiliitis, for this reason ,she was good candidate for sacroiliac joint steroid injection. Description of the procedure= procedure risk and benefits discussed with the patient, including but not limited, risk of infection and bleeding, and ALLERGIC reaction to the medication and not complete pain relief and patient agreed with the preceding patient taken to the operating room, placed in prone position or standard monitors applied to the patient then after induction of anesthesia back prepped with chlorhexidine 3 times , Then under strict sterile technique, first I did the right sacroiliac joint the which was identified under fluoroscopy guidance been local infiltration of the skin and subcu interstitial with lidocaine 1% then 25-gauge Quincke Needle advanced slowly under fluoroscopy and placed in the right sacroiliac joint needle placement confirmed with AP and oblique and lateral view and after appropriate needle placement confirmed and after negative aspiration, or heme , then Ropivacaine 0.5% 3 mL, and 40 mg of Depo-Medrol mixed together and injected in the right sacroiliac joint after negative aspiration patient tolerated the procedure well without any complication. Then the left sacroiliac joint steroid injection done under strict sterile technique local infiltration of the skin and subcu interstitial at the location of the left sacroiliac joint then a 25-gauge Quincke Needle advanced slowly under fluoroscopy time placed in the left sacroiliac joint, needle placement confirmed with AP and oblique and lateral view then after appropriate needle placement confirmed and after negative aspiration 0.5% ropivacaine 3 mL and 40 mg of Depo-Medrol injected in the left sacroiliac joint after negative aspiration patient tolerated the procedure well that any complications and she will follow up in clinic 3 weeks note= patient was scheduled to have right side sacroiliac joint steroid injection, and in the preop holding area patient was complaining of severe pain post side in the low back area Examination was positive for severe tenderness over the PSIS bilaterally, and sweta test was positive bilaterally, Genslen's test was positive bilaterally, and sacral thrust positive bilaterally, and patient will be good candidate for bilateral sacroiliac joint steroid injection, discussed with the patient is option and she agreed with the preceding for bilateral sacroiliac joint steroid injection, and she signed the consent
[2019-04-20 10:18] VITALS: PULSE 73; RESP 16
[2019-04-20 10:32] VITALS: BP 143/88
[2019-04-20] MEDS ORDERED: IV FLUID CONTINUATION 1,000 ML IV ONE (10:33)
--- NOTE | 2019-04-21 07:59 | FL ---
Fluoroscopy HISTORY: Pain 2 seconds fluoroscopy time supplied to the referring clinician. 2 intraoperative C-arm images docume nt the procedure. See dictated report from anesthesia.
== END 2019-04-20 10:47 | disposition home or self-care (01) ==
LOC: ORPAIN 09:08
PROVIDERS: ATTEND Specialist
DX: M46.1 Sacroiliitis, not elsewhere classified (principal); M51.36 Other intervertebral disc degeneration, lumbar region; M46.96 Unspecified inflammatory spondylopathy, lumbar region; M96.1 Postlaminectomy syndrome, not elsewhere classified; Z88.1 Allergy status to other antibiotic agents; Z88.0 Allergy status to penicillin
CPT/HCPCS: J2250; J1030; G0260; 99152

== ENCOUNTER → 2019-06-30 | Outpatient (CLI) | payer OTHER ==
[2019-06-30 13:53] VITALS: BP 114/76; PULSE 107; RESP 16
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
== END | disposition home or self-care (01) ==
LOC: PNWHC3 13:12
PROVIDERS: ATTEND Anesthesiology
DX: G89.29 Other chronic pain (principal); M51.36 Other intervertebral disc degeneration, lumbar region; M47.816 Spondylosis without myelopathy or radiculopathy, lumbar region; F41.9 Anxiety disorder, unspecified; F32.9 Major depressive disorder, single episode, unspecified; M96.1 Postlaminectomy syndrome, not elsewhere classified; F10.20 Alcohol dependence, uncomplicated; F11.90 Opioid use, unspecified, uncomplicated; F17.200 Nicotine dependence, unspecified, uncomplicated; Z79.899 Other long term (current) drug therapy
CPT/HCPCS: 99211

== ENCOUNTER 2019-07-11 09:25 | Day surgery (SDC) | payer OTHER ==
[2019-07-07 11:12] VITALS: BMI 25.8
[2019-07-11 09:42] VITALS: TEMP 97.8
[2019-07-11] MEDS ORDERED: LIDOCAINE 1% (10MG/ML) FOR IV START INTRADERMA ONE (09:44)
[2019-07-11] MEDS ORDERED: LACTATED RINGERS 1,000 ML IV ONE (09:44)
[2019-07-11] MEDS ORDERED: TRIAMCINOLONE ACETONIDE 40 MG/ML 1 ML VIAL ONE (10:05)
[2019-07-11] MEDS ORDERED: IOPAMIDOL M200 10 ML VIAL ONE (10:05)
[2019-07-11] MEDS ORDERED: fentaNYL (PF) 50 MCG/ML 2 ML AMP ONE (10:05)
[2019-07-11] MEDS ORDERED: ROPIVACAINE 5MG/ML 20ML VIAL ONE (10:05)
[2019-07-11] MEDS ORDERED: IV FLUID CONTINUATION 1,000 ML IV ONE (10:26)
--- NOTE | 2019-07-11 10:34 | P.PCN ---
Date of Procedure: 07/11/19 Procedure(s) Performed: Preoperative diagnoses: left sacroilitis Postoperative diagnoses: left sacroilitis. Procedure: left sacroiliac joint steroid injection under fluoroscopic guidance. Surgeon: Qamar Helton MD Anesthesia: [2 mL of 1% lidocaine/moderate sedation with fentanyl ], sedation time 8 minutes Fluoroscopy was used for the procedure and fluoroscopic images were saved to the radiology portion of the patient's chart. EBL: None Procedure indication: The patient had a history of severe chronic low back pain, diagnosed with sacroiliitis unresponsive to conservative treatment. Procedure description: The patient was seen and identified in the preoperative holding area, risks and benefits and alternative of the procedure and possible complications discussed with the patient, and patient agreed with the preceding, patient signed the consent, an IV was started, and vital signs were monitored and were stable throughout the procedure, patient was placed in the prone position on table and the lumbosacral area was prepped and draped with a sterile fashion, vital signs were closely monitored during the procedure, the fluoroscopy camera was placed in the contralateral oblique view on the left sacroiliac joint and the lower part of the joint was identified . Then the skin and subcutaneous tissue was anesthetized using 2 mL of 1% lidocaine then a 22- gauge Quincke-type spinal needle advanced slowly under fluoroscopy and placed in the posterior and inferior border of the left sacroiliac joint, placement confirmed with AP and lateral view, and after appropriate needle placement confirmed and after negative aspiration for heme, 1 mL of Isovue 200 was injected revealing intra-articular spread. Then a solution consisting of 2 ml of ropivacaine 0.5% and 40 mg of Kenalog injected after negative aspiration, no paresthesia during the injection, no resistance to injection, and the needle was removed. Patient tolerated the procedure well without any complication. The patient was returned to supine position after the back was cleaned and a Band-Aid applied, the patient was transported to recovery room in stable condition and monitored for 30 minutes before being discharged home. The patient will follow up with the pain clinic in a few weeks Of note, the patient apologized for her behavior in clinic and states that she had a relapse in alcoholism. Since then, she has moved in with her daughter, who is now her caregiver, she has sought treatment for alcoholism, she states that she has conveyed this to her primary care physician as well.
[2019-07-11 10:38] VITALS: RESP 16
--- NOTE | 2019-07-11 10:49 | FL ---
EXAMINATION TYPE: FL guided pain mgmt statistic DATE OF EXAM: 07/11/2019 HISTORY: Fluoroscopy time 3 seconds of fluoroscopy provided. IMPRESSION: 1. Fluoroscopy time.
[2019-07-11 10:55] VITALS: BP 138/81; PULSE 76
== END 2019-07-11 11:03 | disposition home or self-care (01) ==
LOC: ORPAIN 09:25
PROVIDERS: ATTEND Anesthesiology
DX: G89.29 Other chronic pain (principal); M46.1 Sacroiliitis, not elsewhere classified; M96.1 Postlaminectomy syndrome, not elsewhere classified; M47.26 Other spondylosis with radiculopathy, lumbar region; F10.20 Alcohol dependence, uncomplicated; F17.200 Nicotine dependence, unspecified, uncomplicated; I10 Essential (primary) hypertension; K21.9 Gastro-esophageal reflux disease without esophagitis; G43.909 Migraine, unspecified, not intractable, without status migrainosus; K58.9 Irritable bowel syndrome, unspecified; F32.9 Major depressive disorder, single episode, unspecified; F41.9 Anxiety disorder, unspecified; Z88.0 Allergy status to penicillin; Z88.1 Allergy status to other antibiotic agents; Z79.899 Other long term (current) drug therapy
CPT/HCPCS: J3301; J3010; Q9966; J2795; G0260; 27096

== ENCOUNTER → 2021-04-03 | Outpatient (CLI) | payer OTHER ==
[2021-04-03 09:27] VITALS: BP 117/75; PULSE 101; RESP 18; TEMP 97.5
--- NOTE | 2021-04-03 12:36 | P.PN ---
Subjective Progress Note Date: 04/03/21 Felicita is a 56-year-old female presented to clinic today with her daughter for follow-up evaluation of chronic low back pain, history of multiple lumbar fusion, SI joint dysfunction, lumbar spondylosis with facet arthropathy without myelopathy, cervical degenerative disc disease, cervical spondylosis with facet arthropathy without myelopathy. Her last visit with this office was 07/11/2019 where she had SI joint injections. She has also had caudal epidural with lysis that offered her significant benefit in her pain reduction. Since that time she is moved away closer to [facility]. However now she feels that her pain has returned to significant amounts to seek care. She reports that she has continued low back pain with numbness in her legs left side greater than right and radiates down to her foot area denies any bowel or bladder dysfunction, saddle anesthesia, or any other red flag symptoms. She states her pain is worse with an abnormal gait which causes pressure on her lower back. Pain is made better with rest and interventions. She rates her pain as an 8 out of 10 on a 0 -to-10 scale. She is also complaining of neck pain as well as bilateral knee pain. She reports both pains are chronic in nature and would consider medial branch block in her cervical region as well as consider intra-articular joint injections for her knees. Objective - Vital Signs Vital signs: Vital Signs Temp 97.5 F L 04/03/21 09:11 Pulse 101 H 04/03/21 09:11 Resp 18 04/03/21 09:11 BP 117/75 04/03/21 09:11 Pulse Ox 97 04/03/21 09:11 - Exam Physical Examinations : -Constitutiona : Cooperative , not in acute distress . -HEENT : nech : supple , no Lymphadenopathy , normal thyroid size . : eyes : no ptosis , no icterus, no photophobia . - neurologic : Cranial nerve II to XII intact , no focal neurological deffecit . -psychatric : alert , oriented X 3 , appropriate affect , intact judgment and insight . -Lymphatic : no Lymphadenopathy . - musculoskeltal : Cervical Spine motor stregnth in the deltoid and biceps, normal right side , normal Left side motor stregnth biceps and the wrist extensors normal right side ,normal left side . motor stregnth in the triceps muscle . normal Right side , normal Left side deep tendon reflexes normal at the biceps , normal at Brachioradialis , normal at triceps. cervical facet loading test: Positive Bilaterally Spurling test= positive Right , positive left. Neck distraction test= positive Right , positive left. Duncan sign= positive right, positive left . Lumber spine moter stegnth lower extremities ,thigh and legs 5/5 Right side , 5/5 Left side deep tendon reflexes : normal Knee Jerk , normal ankle Jerk lumber facet Loading Test =positive Right , positive Left Range of motion of the lumbar spine Flexion 30 degrees, extension 10 degrees strait leg raising test = positive at 30 degree Fabere test= positive Right , and positive LT . Sever tenderness over the Sacroiliac joint on the Right , and Left sides Gaenslen test= positive right ,and positive left . Seated flexion test= positive right ,and positive Left . Distraction test= positive bilaterally Sacroiliac compression test= positive bilaterally Assessment and Plan Assessment: Assessment and plan Assessment: Lumbar spondylosis with facet arthropathy without myelopathy Lumbar degenerative disc disease Cervical spondylosis with facet arthropathy without myelopathy Cervical degenerative disc disease Bilateral knee arthritis Plan: She could benefit with repeat caudal epidural injection with lysis. Consider repeat bilateral SI joint injections in the future Consider bilateral intra-articular knee joint injections in the future Dr. Escobar was available by phone for consultation during his visit. I have spent 25 minutes on patient care today. The time was used to review the medical records including relevant urine studies and Prescription history (MAPs), review of the available imaging, evaluation and examination of the patient, coordination of care with the medical staff and if applicable referring physicians, as well as creation of the medical record. - PQRS measures = - Patient's medications are documented in the chart. -Tobacco use is negative -Patient's has not received pneumococcal vaccine. -Advanced care planning discussed, patient not eligible. -Opiate contract not signed. -Pain positive and follow-up visit/procedure is scheduled. -Patient's blood pressure measured 117/75 , and documented in the record ,and patient will follow up with the primary care. -Patient was not identified as an unhealthy alcohol user Time with Patient: Less than 30
== END ==
LOC: PNWHC3 08:36
PROVIDERS: ATTEND Student in an Organized Health Care Education/Training Program
DX: M47.816 Spondylosis without myelopathy or radiculopathy, lumbar region (principal); M51.36 Other intervertebral disc degeneration, lumbar region; M47.812 Spondylosis without myelopathy or radiculopathy, cervical region; M50.30 Other cervical disc degeneration, unspecified cervical region; M17.0 Bilateral primary osteoarthritis of knee; F17.200 Nicotine dependence, unspecified, uncomplicated; Z88.0 Allergy status to penicillin; Z88.1 Allergy status to other antibiotic agents
CPT/HCPCS: 99211

== ENCOUNTER → 2021-06-26 | Outpatient (CLI) | payer OTHER ==
--- NOTE | 2021-06-26 10:35 | P.PN ---
Subjective Progress Note Date: 06/26/21 Principal diagnosis: A 56 yr old female with Dr. izabela dunaway with a history of severe and chronic low back pain secondary to lumbar degenerative disc diseases and lumbar spondylosis with facet arthropathy presents today for evaluation status post caudal ZEFERINO. Patient admits she only experienced 30% pain relief with the last procedure. Pain level in the lumbar spine is 6 out of 10 in intensity, constant, sore, achy in the lower aspect of the lumbar spine where it meets the tailbone with radiation of sharp, throbbing pain to the hips and bilateral lower extremities, right greater than left. Pain is provoked by lifting, twisting and bending. Pain is alleviated with medications, topicals, ice, heat, physical therapy from 2007 2014, massage during the same period, home exercise regimen, use of TENS unit 2-3 times a week, repositioning and rest. Interventional pain procedures completed include of caudal ZEFERINO Patient denies any side effects of the medication(s), denies excessive drowsiness or sleepiness, denies suicidal ideation and reports that the current pain medication is helping to control the pain and improve activities of daily living. Patient denies any motor or sensory deficits. Patient denies any fever or night sweats, denies any change in the bowel movements or urination. Physical Examination: -Constitutional: Cooperative. Not in acute distress . -HEENT: Neck is supple. No lymphadenopathy. No thyromegaly. Normal thyroid size. Eyes: No ptosis , no icterus, no photophobia. ENT: No auditory deficits. Normal oropharynx. No Thrush. - Respiratory: Chest clear to auscultations bilaterally. No wheezing. No rhonchi. - Cardiovascular: Regular rate and rhythm. S1 / S2 , no S3 , no S4. - Gastrointestinal: Abdomen soft no tenderness. Bowel sounds positive in all four quadrants. No organomegaly. - Genitourinary: Deferred. - Neurologic: Cranial nerve II to XII intact. No focal neurological deficits. - Psychatric: Alert & oriented x 3. Matching mood & appropriate affect. Judgment and insight intact. - Lymphatic: No Lymphadenopathy. - Musculoskeletal: Cervical spine: Muscle bulk/ tone/ strength in the bilateral upper extremities normal. Facet loading test cervical area positive. Lumbar spine: Motor bulk/ tone/ strength lower extremities , thigh and legs : 5/5 Deep tendon reflexes : Normal Knee Jerk. Normal Ankle Jerk . Vertebral body tenderness to palpation over Lumbar Facet Loading Test positive over L5 to S1 bilaterally with jump reflex and accompanying muscle spasms Straight Leg Raise: positive at 30 degrees right side/ left side Gaenslen's Test postive Sacral spine : Severe tenderness over the Sacroiliac joint: right side / left side Range of motion: Flexion of the lumbar spine <60 degrees Range of motion: Extension of the lumbar spine <20 degrees Gaenslen's Test positive Darron test: positive right side / left side Assessment and plan: Chronic low back pain secondary to lumbar degenerative disc disease , lumbar spondylosis with facet arthropathy without myelopathy Recommendation of LESI of the L5 to S1 May need repeat procedures to obtain sufficient pain relief Denies aspirin or anticoagulants use Will follow up with her neurologist for numbness in the feet and tingling in the hands. Patient has been prescribed Neurontin in the past but denies having an EMG or nerve conduction test. All patient questions answered MAPS reviewed and it was appropriate. I have spent 31 minutes on patient care today. Dr Escobar was available by phone for the evaluation of this patient. The time was used to review the medical records including relevant urine studies and Prescription history (MAPs), review of the available imaging, evaluation and examination of the patient, coordination of care with the medical staff and if applicable referring physicians, as well as creation of the medical record Objective - Vital Signs Vital signs: Intake & Output 06/25/21 06/26/21 06/26/21 18:59 06:59 18:59 Weight 79.379 kg PQRS Measure Charge Sheet PQRS Narrative: Smoking Status Current every day smoker Narcotic Agreement Date Signed 12/13/12 Scale Used Numeric (1 - 10) Hx Alcohol Use (MH) Yes: recoverning ETOH Home Medications: Ambulatory Orders Ferrous Sulfate [Iron (65 MG Elemental)] 325 mg PO DAILY 12/03/17 Folic Acid 1 mg PO DAILY 12/03/17 atenoloL [Tenormin] 25 mg PO DAILY 12/03/17 Loperamide [Imodium] 2 mg PO TID PRN 04/05/19 Venlafaxine HCl ER [Effexor XR] 150 mg PO DAILY 04/05/19 Cholecalciferol [Vitamin D3 (25 Mcg = 1000 Iu)] 25 mcg PO DAILY 06/14/19 Fenofibrate Nanocrystallized [Fenofibrate] 145 mg PO DAILY 04/03/21 Gabapentin [Neurontin] 300 mg PO HS 04/03/21 Meloxicam 15 mg PO DAILY 04/03/21 Omeprazole 20 mg PO DAILY 04/03/21 busPIRone HCL 10 mg PO DAILY 04/03/21
[2021-06-26 12:24] VITALS: BP 142/89; PULSE 85; RESP 18; TEMP 98.4
== END ==
LOC: PNWHC3 09:22
PROVIDERS: ATTEND Physician Assistant Medical
DX: G89.29 Other chronic pain (principal); M51.36 Other intervertebral disc degeneration, lumbar region; M47.816 Spondylosis without myelopathy or radiculopathy, lumbar region; F17.200 Nicotine dependence, unspecified, uncomplicated; Z88.0 Allergy status to penicillin; Z88.1 Allergy status to other antibiotic agents
CPT/HCPCS: 99211

== ENCOUNTER 2021-07-30 11:15 | Day surgery (SDC) | payer OTHER ==
[2021-07-25 14:06] VITALS: BMI 32.3
[~2021-07-30 11:15] MED LIST changes: +LIDOCAINE 1% (10MG/ML) FOR IV START INTRADERMA PRN
[2021-07-30 11:46] VITALS: TEMP 97
[2021-07-30] MEDS ORDERED: methylPREDNISolone ACETATE 40 MG/ML 1 ML VIAL ONE (11:48)
[2021-07-30] MEDS ORDERED: IOPAMIDOL M200 10 ML VIAL ONE (11:48)
--- NOTE | 2021-07-30 12:07 | P.PCN ---
Date of Procedure: 07/30/21 Description of Procedure: Procedure: 1. L5-S1 Epidural steroid injection under fluoroscopic guidance # 05/13 , 2. Lumbar epidurogram PREOPERATIVE DIAGNOSIS: Lumbar degenerative disc disease, and Lumbar radiculopathy. POSTOPERATIVE DIAGNOSIS: Lumbar degenerative disc disease, and Lumbar radiculopathy. SURGEON: Tamir Chacon ANESTHESIA: Local with 1% lidocaine, and IV sedation : None EBL: None. Specimen removed: None Fluoroscopic image: saved to electronic medical records PROCEDURE INDICATION: The patient had history of Lumbar degenerative disc disease and Lumbar radiculopathy. Failed to conservative therapy. Presented for epidural steroid injection. PROCEDURE DESCRIPTION: The patient was seen and identified in the preoperative area. Risks, benefits, complications, and alternatives were discussed with the patient. The patient agreed to proceed with the procedure and signed the consent. IV was started, and vital signs were stable. Patient was taken to the procedure area, and time out was completed. The patient was placed in the prone position on procedure table and a pillow was placed under the abdomen to reduce lumbar lordosis. The lumbosacral area was prepped and draped in the usual sterile fashion. Critical pause was taken. Vital signs were closely monitored during the procedure. Using anterior-posterior fluoroscopy, the L5-S1 interlaminar space was identified, and skin and deeper tissues were localized with 1% lidocaine. Using anterior-posterior fluoroscopy, lateral fluoroscopy, and [id number] technique, a 20 gauge 3.5 Tuohy epidural needle entered the epidural space. After negative aspiration of CSF and blood with no paresthesias, 1 ml of Thavdy661 contrast dye was injected and an excellent epidurogram was seen. Again after negative aspiration of CSF and blood with no paresthesias, 7 mL of block solution was injected into the epidural space. Block solution contained 80 mg of Depo-Medrol, and 6 mL of preservative-free normal saline. Needle was withdrawn intact, skin was cleansed, and bandages were applied. COMPLICATIONS: None. DISPOSITION / PLANS: The patient was placed in a supine position and transferred to the recovery area in a stable condition for observation. Patient was discharged from the recovery room after meeting discharge criteria. Home discharge instructions given to the patient by the staff. The patient was reexamined prior to discharge. The patient will schedule a follow up in the clinic in 4 weeks.
[2021-07-30 12:15] VITALS: BP 120/82; PULSE 82; RESP 16
[2021-07-30] MEDS ORDERED: LACTATED RINGERS 1,000 ML IV SCH (12:15)
--- NOTE | 2021-07-30 12:26 | FL ---
EXAMINATION TYPE: FL guided pain mgmt statistic DATE OF EXAM: 07/30/2021 HISTORY: Fluoroscopy time 10 seconds of fluoroscopy provided. IMPRESSION: 1. Fluoroscopy time.
== END 2021-07-30 12:41 | disposition home or self-care (01) ==
LOC: ORPAIN 11:15
DX: M51.16 Intervertebral disc disorders with radiculopathy, lumbar region (principal)
CPT/HCPCS: 62323; J1030; Q9966

== ENCOUNTER → 2021-10-16 | Outpatient (CLI) | payer OTHER ==
--- NOTE | 2021-10-16 14:20 | P.PAINPG ---
PQRS Measure Charge Sheet Comment: A 56 yr old female with daughter at side with a history of severe and chronic low back pain secondary to lumbar degenerative disc diseases and lumbar spondylosis with facet arthropathy presents today for evaluation status post LESI L5-S1. She states she expresses 100% pain relief for 2 months status post procedure. Pain level is currently at 5 out of 10 in intensity, dull, achy in the lower aspects of the lumbar spine but escalates as high as 9 out of 10 in intensity with walking and standing for periods of 15 minutes or more. Pain is also shooting towards the BLEs. Pain is alleviated with medications, patches, injections, alternating ice and heat, physical therapy in the past, home-based stretching regimen, repositioning and rest. Interventional pain procedures completed include LESI L5-S1 x 1 Patient is currently on Mobic by her PCP, Tylenol OTC, Advil OTC. Patient denies any side effects of the medication(s), denies excessive drowsiness or sleepiness, denies suicidal ideation and reports that the current pain medication is helping to control the pain and improve activities of daily living. Patient denies any motor or sensory deficits. Patient denies any fever or night sweats, denies any change in the bowel movements or urination. Physical Examination: -Constitutional: Cooperative. Not in acute distress . -HEENT: Neck is supple. No lymphadenopathy. No thyromegaly. Normal thyroid size. Eyes: No ptosis , no icterus, no photophobia. ENT: No auditory deficits. Normal oropharynx. No Thrush. - Respiratory: Chest clear to auscultations bilaterally. No wheezing. No rhonchi. - Cardiovascular: Regular rate and rhythm. S1 / S2 , no S3 , no S4. - Gastrointestinal: Abdomen soft no tenderness. Bowel sounds positive in all four quadrants. No organomegaly. - Genitourinary: Deferred. - Neurologic: Cranial nerve II to XII intact. No focal neurological deficits. - Psychatric: Alert & oriented x 3. Matching mood & appropriate affect. Judgment and insight intact. - Lymphatic: No Lymphadenopathy. - Musculoskeletal: Cervical spine: Muscle bulk/ tone/ strength in the bilateral upper extremities normal Vertebral body tenderness to palpation over Facet loading test positive Thoracic spine Muscle bulk / tone/ strength in the bilateral paraspinal muscles normal Vertebral body tender to palpation over Facet loading test positive Lumbar spine: Motor bulk/ tone/ strength lower extremities , thigh and legs : 5/5 Deep tendon reflexes : Normal Knee Jerk. Normal Ankle Jerk . Vertebral body tenderness to palpation over L5 Lumbar Facet Loading Test positive Straight Leg Raise: positive at 30 degrees right side/ left side Gaenslen's Test positive Sacral spine : Severe tenderness over the Sacroiliac joint: right side / left side Range of motion: Flexion of the lumbar spine <60 degrees Range of motion: Extension of the lumbar spine <20 degrees Gaenslen's Test positive Rosalino's Test positive Darron test: positive right side / left side Thigh Thrust Test Sacral Thrust Test Assessment and plan: Chronic low back pain secondary to lumbar degenerative disc disease , lumbar spondylosis with facet arthropathy without myelopathy Recommendation of JEFF L5S1 #2. May need a series of injections, up to 3 within a 6 month period, for optimal pain relief. Risks, benefits of procedure discussed and pt verbalized understanding. Denies anticoagulant use or medical history of diabetes. All patient questions answered MAPS reviewed and it was appropriate. I have spent 31 minutes on patient care today. Dr Escobar was available by phone for the evaluation of this patient. The time was used to review the medical records including relevant urine studies and Prescription history (MAPs), review of the available imaging, evaluation and examination of the patient, coordination of care with the medical staff and if applicable referring physicians, as well as creation of the medical record PQRS Narrative: Smoking Status Current every day smoker Narcotic Agreement Date Signed 12/13/12 Hx Alcohol Use (MH) Yes: recoverning ETOH Home Medications: Ambulatory Orders Ferrous Sulfate [Iron (65 MG Elemental)] 325 mg PO DAILY 12/03/17 Folic Acid 1 mg PO DAILY 12/03/17 atenoloL [Tenormin] 25 mg PO DAILY 12/03/17 Loperamide [Imodium] 2 mg PO TID PRN 04/05/19 Venlafaxine HCl ER [Effexor XR] 150 mg PO DAILY 04/05/19 Cholecalciferol [Vitamin D3 (25 Mcg = 1000 Iu)] 25 mcg PO DAILY 06/14/19 Fenofibrate Nanocrystallized [Fenofibrate] 145 mg PO DAILY 04/03/21 Meloxicam 15 mg PO DAILY 04/03/21 Omeprazole 20 mg PO DAILY 04/03/21 busPIRone HCL 10 mg PO DAILY 04/03/21 Controlled Substance Measures - Controlled Substance Measures Is patient prescribed a controlled substance at discharge?: No
[2021-10-16 14:22] VITALS: BP 138/89; PULSE 73; RESP 18; TEMP 97.8
== END ==
LOC: PNWHC3 13:52
PROVIDERS: ATTEND Specialist
DX: M51.36 Other intervertebral disc degeneration, lumbar region (principal); M47.816 Spondylosis without myelopathy or radiculopathy, lumbar region; G89.29 Other chronic pain; F17.200 Nicotine dependence, unspecified, uncomplicated; Z88.0 Allergy status to penicillin; Z88.1 Allergy status to other antibiotic agents
CPT/HCPCS: 99211

== ENCOUNTER → 2021-11-19 | Day surgery (SDC) | payer OTHER ==
[~2021-11-19] MED LIST changes: +IOPAMIDOL M200 10 ML VIAL ONE; +IV FLUID CONTINUATION 800 ML IV ONE; -LACTATED RINGERS 1,000 ML IV SCH; -LIDOCAINE 1% (10MG/ML) FOR IV START INTRADERMA PRN; +MIDAZOLAM 2 MG/2 ML VIAL ONE; +ROPIVACAINE 5MG/ML 20ML VIAL ONE; +TRIAMCINOLONE ACETONIDE 40 MG/ML 1 ML VIAL ONE; +fentaNYL (PF) 50 MCG/ML 2 ML AMP ONE
[2021-11-19 10:01] VITALS: TEMP 96.1
[2021-11-19] MEDS: LACTATED RINGERS 1,000 ML IV SCH ×2 (10:13→10:14)
--- NOTE | 2021-11-19 10:33 | P.PCN ---
Date of Procedure: 11/19/21 Surgeon: Kin Alexandre Pathology: none sent Condition: stable Disposition: PACU Description of Procedure: PREOPERATIVE DIAGNOSIS: 1-Lumbar radiculopathy 2- Lumber Degenerative Disc Diseases. POSTOPERATIVE DIAGNOSIS: 1-Lumbar radiculopathy. 2-Lumbar Degenerative Disc Diseases 3-postlaminectomy pain syndrome PROCEDURE 1. Lumbar epidural steroid injection under fluoroscopic guidance at the L3-4 level. 2. Lumbar epidurogram. 3-postlaminectomy pain syndrome ANESTHESIA: Local with 1% lidocaine; and IV moderate conscious sedation with Versed and fentanyl EBL: Minimal PROCEDURE INDICATION: The patient with low back pain and radiculitis symptoms unresponsive to conservative treatment. Fluoroscopy was used to optimize visualization of the needle placement and to maximize safety. PROCEDURE DESCRIPTION / TECHNIQUE: The patient was seen and identified in the preoperative area. Risks, benefits, complications including but not limited to infections ,bleeding ,allergic reaction to the medications ,nerve damage and not complete pain relief , and alternatives were discussed with the patient. The patient agreed to proceed with the procedure and signed the consent. IV was started, and vital signs were stable. To avoid the scar tissue from the patient's previous back surgery I went one level above the scar in the L3-4 level midline approach. This level also c orresponds with her current symptoms of pain radiating down to the knees bilaterally. Patient was taken to the OR and time out was completed. The patient was placed in the prone position on procedure table and a pillow was placed under the abdomen to reduce lumbar lordosis. The lumbosacral area was prepped and draped in the usual sterile fashion with ChloraPrep.Patient was closely monitored during the procedure. Conscious sedation was used during the procedure to decrease patients anxiety. Vital signs were monitered during the entire procedure. Using anterior-posterior fluoroscopy, the L3-4 interlaminar space was identified and the skin over this site was marked and then infiltrated with 1% lidocaine subcutaneously. Subsequently, a 20-gauge Tuohy epidural needle was inserted and advanced toward the epidural space using the Loss of resistance to air technique and guided by AP and lateral fluoroscopy. The correct needle position in the epidural space was verified with the injection of 1 mL of the water soluble contrast dye Omnipaque 180 contrast and observing an excellent epidurogram with the epidural spread of the dye, after negative aspiration for blood and CSF and in the absence of paresthesias. Again after negative aspiration, a 7 ml mixture containing 40 mg of Kenalog and 5 ml of preservative free Normal Saline, and 2 ml of preservative free Ropivacaine 0.5% solution was injected and a washout of epidurogram was seen. Needle was withdrawn intact, skin was cleansed, and bandages were applied. patient tolerated procedure well and was transferred to PACU in stable condition.A copy of the needle placement picture was saved to the fluoroscopy machine. COMPLICATIONS: None DISPOSITION / PLANS: The patient was placed in a supine position and transferred to the recovery area in a stable condition for observation. There was no evidence of lower extremity motor or sensory deficit after the procedure. Patient was discharged from the recovery room after meeting discharge criteria. Home discharge instructions were given to the patient by the staff. The patient was reexamined prior to discharge. The patient will schedule a follow up in the clinic in 2-4 weeks.
[2021-11-19 10:38] VITALS: BP 115/73; RESP 16
[2021-11-19 10:51] VITALS: PULSE 76
--- NOTE | 2021-11-19 13:26 | FL ---
Fluoroscopy HISTORY: Pain 5 seconds fluoroscopy time supplied to the referring clinician. 2 intraoperative C-arm images docume nt the procedure. See dictated report from anesthesia.
== END ==
LOC: ORPAIN 09:44
PROVIDERS: ATTEND Anesthesiology
DX: M51.16 Intervertebral disc disorders with radiculopathy, lumbar region (principal); M96.1 Postlaminectomy syndrome, not elsewhere classified; K58.9 Irritable bowel syndrome, unspecified
CPT/HCPCS: 62323; J2250; J3301; J3010; Q9966; J2795; 99152

== ENCOUNTER → 2022-08-21 | Outpatient (CLI) | payer OTHER ==
[2022-08-21 13:31] VITALS: BP 141/94; PULSE 83; RESP 20; TEMP 97.8
--- NOTE | 2022-08-21 14:48 | P.PAINPG ---
PQRS Measure Charge Sheet Comment: A 57 yr old female w daughter at side with a history of severe and chronic LBP secondary to lumbar DDD and spondylosis with facet arthropathy without myelopathy presents today for evaluation s/p ZEFERINO L5-S1 #2. Pt states she experienced 80% pain relief x 3 mo s/p procedure. Pain level is provoked at 7/10 in intensity, constant, localized in the lumbar spine, burning in character w shooting towards the BL hips and R knee. Pain is provoked by over activity. Pain is alleviated with use of a TENS unit, medication, heat, ice, repositioning and rest. Interventional pain procedures completed include LESI L5-S1 x2 Patient is currently on Mobic Patient denies any side effects of the medication(s), denies excessive drowsiness or sleepiness, denies suicidal ideation and reports that the current pain medication is helping to control the pain and improve activities of daily living. Patient denies any motor or sensory deficits. Patient denies any fever or night sweats, denies any change in the bowel movements or urination. Physical Examination: -Constitutional: Cooperative. Not in acute distress . - Neurologic: Cranial nerve II to XII intact. No focal neurological deficits. - Psychatric: Alert & oriented x 3. Matching mood & appropriate affect. Judgment and insight intact. - Musculoskeletal: Cervical spine: Muscle bulk/ tone/ strength in the bilateral upper extremities normal Vertebral body tenderness to palpation over Spurling test positive Distraction test positive Facet loading test positive TTP Thoracic spine Muscle bulk / tone/ strength in the bilateral paraspinal muscles normal Vertebral body tender to palpation over Facet loading test positive TTP Lumbar spine: Motor bulk/ tone/ strength lower extremities , thigh and legs : 5/5 Deep tendon reflexes : Normal Knee Jerk. Normal Ankle Jerk . Vertebral body tenderness to palpation over L5 Lumbar Facet Loading Test positive Straight Leg Raise: positive at 30 degrees right side/ left side Gaenslen's Test positive Sacral spine : Severe tenderness over the Sacroiliac joint: right side / left side Range of motion: Flexion of the lumbar spine <60 degrees Range of motion: Extension of the lumbar spine <20 degrees Gaenslen's Test positive right side / left side Darron test: positive right side / left side Thigh Thrust Test positive right side / left side Sacral Thrust Test positive right side / left side Assessment and plan: Chronic LBP secondary to lumbar DDD, spondylosis with facet arthropathy without myelopathy Recommendation of ZEFERINO L5-S1 #3. May need a series of injections for optimal pain relief. Risks, benefits of procedure discussed and pt verbalized understanding. Admits to anticoagulant use or medical history of diabetes. Protocol for discontinuation/ continuation of medications matti procedure discussed. All questions answered. I have spent less than 30 minutes on patient care today. Dr Escobar was available by phone for the evaluation of this patient. The time was used to review the medical records including relevant urine studies and Prescription history (MAPs), review of the available imaging, evaluation and examination of the patient, coordination of care with the medical staff and if applicable referring physicians, as well as creation of the medical record PQRS Narrative: Smoking Status Current every day smoker Narcotic Agreement Date Signed 12/13/12 Hx Alcohol Use (MH) Yes: recoverning ETOH Home Medications: Ambulatory Orders Ferrous Sulfate [Iron (65 MG Elemental)] 325 mg PO DAILY 12/03/17 Folic Acid 1 mg PO DAILY 12/03/17 atenoloL [Tenormin] 25 mg PO DAILY 12/03/17 Loperamide [Imodium] 2 mg PO TID PRN 04/05/19 Venlafaxine HCl ER [Effexor XR] 150 mg PO DAILY 04/05/19 Cholecalciferol [Vitamin D3 (25 Mcg = 1000 Iu)] 25 mcg PO DAILY 06/14/19 Meloxicam 15 mg PO DAILY 04/03/21 Omeprazole 20 mg PO DAILY 04/03/21 busPIRone HCL 10 mg PO DAILY 04/03/21 Controlled Substance Measures - Controlled Substance Measures Is patient prescribed a controlled substance at discharge?: No
== END ==
LOC: PNWHC3 13:00
PROVIDERS: ATTEND Specialist
DX: M51.36 Other intervertebral disc degeneration, lumbar region (principal); M47.816 Spondylosis without myelopathy or radiculopathy, lumbar region; G89.4 Chronic pain syndrome; F17.200 Nicotine dependence, unspecified, uncomplicated; Z88.6 Allergy status to analgesic agent; Z88.0 Allergy status to penicillin
CPT/HCPCS: 99211

== ENCOUNTER 2022-09-16 10:38 | Day surgery (SDC) | payer OTHER ==
[2022-09-12 13:34] VITALS: BMI 29.0
[~2022-09-16 10:38] MED LIST changes: -IOPAMIDOL M200 10 ML VIAL ONE; -IV FLUID CONTINUATION 800 ML IV ONE; +LACTATED RINGERS 1,000 ML IV SCH; -MIDAZOLAM 2 MG/2 ML VIAL ONE; -ROPIVACAINE 5MG/ML 20ML VIAL ONE; -TRIAMCINOLONE ACETONIDE 40 MG/ML 1 ML VIAL ONE; -fentaNYL (PF) 50 MCG/ML 2 ML AMP ONE
[2022-09-16] MEDS ORDERED: LACTATED RINGERS 1,000 ML IV ONE ×2 (11:05→12:50)
[2022-09-16 11:26] VITALS: TEMP 97.9
[2022-09-16] MEDS ORDERED: ONDANSETRON 4 MG/2 ML VIAL ONE (11:41)
[2022-09-16] MEDS ORDERED: ONDANSETRON 4 MG/2 ML VIAL IVP ONE (11:43)
[2022-09-16] MEDS ORDERED: MIDAZOLAM 2 MG/2 ML VIAL ONE (12:34)
[2022-09-16] MEDS ORDERED: IOPAMIDOL M200 10 ML VIAL ONE (12:34)
[2022-09-16] MEDS ORDERED: fentaNYL (PF) 50 MCG/ML 2 ML AMP ONE (12:34)
[2022-09-16] MEDS ORDERED: TRIAMCINOLONE ACETONIDE 40 MG/ML 1 ML VIAL ONE (12:34)
[2022-09-16] MEDS ORDERED: ROPIVACAINE 5 MG/ML 20 ML AMPULE ONE (12:34)
--- NOTE | 2022-09-16 12:50 | P.PCN ---
Date of Procedure: 09/16/22 Surgeon: Kin Alexandre Pathology: none sent Condition: stable Disposition: PACU Description of Procedure: PREOPERATIVE DIAGNOSIS: 1-Lumbar radiculopathy 2- Lumber Degenerative Disc Diseases. POSTOPERATIVE DIAGNOSIS: 1-Lumbar radiculopathy. 2-Lumbar Degenerative Disc Diseases 3-postlaminectomy pain syndrome PROCEDURE 1. Lumbar epidural steroid injection under fluoroscopic guidance at the L3-4l evel. 2. Lumbar epidurogram. 3-postlaminectomy pain syndrome ANESTHESIA: Local with 1% lidocaine; and IV moderate conscious sedation with Versed and fentanyl EBL: Minimal PROCEDURE INDICATION: The patient with low back pain and radiculitis symptoms unresponsive to conservative treatment. Fluoroscopy was used to optimize visualization of the needle placement and to maximize safety. PROCEDURE DESCRIPTION / TECHNIQUE: The patient was seen and identified in the preoperative area. Risks, benefits, complications including but not limited to infections ,bleeding ,allergic reaction to the medications ,nerve damage and not complete pain relief , and alternatives were discussed with the patient. The patient agreed to proceed with the procedure and signed the consent. IV was started, and vital signs were stable. Patient was taken to the OR and time out was completed. The patient was placed in the prone position on procedure table and a pillow was placed under the abdomen to reduce lumbar lordosis. The lumbosacral area was prepped and draped in the usual sterile fashion with ChloraPrep.Patient was closely monitored during the procedure. Conscious sedation was used during the procedure to decrease patients anxiety. Vital signs were monitered during the entire procedure. The procedure was done at the L3 4 level to avoid the scar tissue from her previous lumbar laminectomy. The patient may benefit from a caudal epidural steroid injection with lysis of adhesions next time. Using anterior-posterior fluoroscopy, the L3-4 interlaminar space was identified and the skin over this site was marked and then infiltrated with 1% lidocaine subcutaneously. Subsequently, a 20-gauge Tuohy epidural needle was inserted and advanced toward the epidural space using the Loss of resistance to air technique and guided by AP and lateral fluoroscopy. The correct needle position in the epidural space was verified with the injection of 1 mL of the water soluble contrast dye Omnipaque 180 contrast and observing an excellent epidurogram with the epidural spread of the dye, after negative aspiration for blood and CSF and in the absence of paresthesias. Again after negative aspiration, a 8 ml mixture containing 40 mg of Kenalog and 5 ml of preservative free Normal Saline, and 2 ml of preservative free Ropivacaine 0.5% solution was injected and a washout of epidurogram was seen. Needle was withdrawn intact, skin was cleansed, and bandages were applied. patient tolerated procedure well and was transferred to PACU in stable condition.A copy of the needle placement picture was saved to the fluoroscopy machine. COMPLICATIONS: None Sedation time:[id number] DISPOSITION / PLANS: The patient was placed in a supine position and transferred to the recovery area in a stable condition for observation. There was no evidence of lower extremity motor or sensory deficit after the procedure. Patient was discharged from the recovery room after meeting discharge criteria. Home discharge instructions were given to the patient by the staff. The patient was reexamined prior to discharge. The patient will schedule a follow up in the clinic in 2-4 weeks.
--- NOTE | 2022-09-16 12:58 | FL ---
EXAMINATION TYPE: FL guided pain mgmt statistic DATE OF EXAM: 09/16/2022 HISTORY: Fluoroscopy time Total dose area product (DAP) in mGy*m? (or similar): 0.92663 IMPRESSION: 1. Fluoroscopy time.
[2022-09-16 13:17] VITALS: BP 143/93; PULSE 99; RESP 16
== END 2022-09-16 13:27 | disposition home or self-care (01) ==
LOC: ORPAIN 10:38
PROVIDERS: ATTEND Anesthesiology
DX: M51.16 Intervertebral disc disorders with radiculopathy, lumbar region (principal); M96.1 Postlaminectomy syndrome, not elsewhere classified; I10 Essential (primary) hypertension; F17.200 Nicotine dependence, unspecified, uncomplicated; Z79.899 Other long term (current) drug therapy; Z88.0 Allergy status to penicillin
CPT/HCPCS: 62323; J2250; J3301; J2405; J3010; Q9966; J2795

== ENCOUNTER → 2022-10-08 | Outpatient (CLI) | payer OTHER ==
[2022-10-08 11:34] VITALS: BP 125/73; PULSE 101; RESP 18
--- NOTE | 2022-10-08 14:35 | P.PAINPG ---
PQRS Measure Charge Sheet Comment: A 57 yr old female w daughter at side with a history of severe and chronic LBP secondary to lumbar DDD and spondylosis with facet arthropathy without myelopathy presents today for evaluation s/p ZEFERINO L3-L4. Pt states she experienced 0 % pain relief x 3 wks s/p procedure. Pain level is provoked at 8 /10 in intensity, constant, localized in the lumbar spine, burning in character w shooting towards the BL hips and RLE. Pain is provoked by standing/ sitting too long and over activity. Pain is alleviated with PT years ago and plans to return again, heat, medications, physician guided stretching & exercising daily, use of a TENS unit, repositioning and rest. Interventional pain procedures completed include ZEFERINO L3-4 Patient is currently on Tyl, Mobic, Neurontin Patient denies any side effects of the medication(s), denies excessive drowsiness or sleepiness, denies suicidal ideation and reports that the current pain medication is helping to control the pain and improve activities of daily living. Patient denies any motor or sensory deficits. Patient denies any fever or night sweats, denies any change in the bowel movements or urination. Physical Examination: -Constitutional: Cooperative. Not in acute distress . - Neurologic: Cranial nerve II to XII intact. No focal neurological deficits. - Psychatric: Alert & oriented x 3. Matching mood & appropriate affect. Judgment and insight intact. - Musculoskeletal: Cervical spine: Muscle bulk/ tone/ strength in the bilateral upper extremities normal Vertebral body tenderness to palpation over Spurling test positive Distraction test positive Facet loading test positive TTP Thoracic spine Muscle bulk / tone/ strength in the bilateral paraspinal muscles normal Vertebral body tender to palpation over Facet loading test positive TTP Lumbar spine: Motor bulk/ tone/ strength lower extremities , thigh and legs : 5/5 Deep tendon reflexes : Normal Knee Jerk. Normal Ankle Jerk . Vertebral body tenderness to palpation over L3 + Kearney Test positive Lumbar Facet Loading Test positive Straight Leg Raise: positive at 30 degrees right side/ left side Gaenslen's Test positive Sacral spine : Severe tenderness over the Sacroiliac joint: right side / left side Range of motion: Flexion of the lumbar spine <60 degrees Range of motion: Extension of the lumbar spine <20 degrees Gaenslen's Test positive right side / left side Darron test: positive right side / left side Thigh Thrust Test positive right side / left side Sacral Thrust Test positive right side / left side Assessment and plan: Chronic LBP secondary to lumbar DDD, spondylosis with facet arthropathy without myelopathy Recommendation of BL TFESI L3-L4. May need a series of injections for optimal pain relief. Risks, benefits of procedure discussed and pt verbalized understanding. Admits to anticoagulant use or medical history of diabetes. Protocol for discontinuation/ continuation of medications matti procedure discussed. Minimal anesthesia provided, if clinically indicated, consisting of Versed and Fentanyl. All questions answered. I have spent less than 30 minutes on patient care today. Dr Escobar was available by phone for the evaluation of this patient. The time was used to review the medical records including relevant urine studies and Prescription history (MAPs), review of the available imaging, evaluation and examination of the patient, coordination of care with the medical staff and if applicable referring physicians, as well as creation of the medical record PQRS Narrative: Smoking Status Current every day smoker Narcotic Agreement Date Signed 12/13/12 Hx Alcohol Use (MH) Yes: recoverning ETOH, drinks 2 beers every other night to relax Home Medications: Ambulatory Orders Ferrous Sulfate [Iron (65 MG Elemental)] 325 mg PO DAILY 12/03/17 Folic Acid 1 mg PO DAILY 12/03/17 atenoloL [Tenormin] 25 mg PO DAILY 12/03/17 Loperamide [Imodium] 2 mg PO TID PRN 04/05/19 Venlafaxine HCl ER [Effexor XR] 150 mg PO DAILY 04/05/19 Cholecalciferol [Vitamin D3 (25 Mcg = 1000 Iu)] 25 mcg PO DAILY 06/14/19 Meloxicam 15 mg PO DAILY 04/03/21 Omeprazole 20 mg PO DAILY 04/03/21 busPIRone HCL 10 mg PO DAILY 04/03/21 Gabapentin [Neurontin] 100 mg PO BID 09/12/22 Controlled Substance Measures - Controlled Substance Measures Is patient prescribed a controlled substance at discharge?: No
== END ==
LOC: PNWHC3 10:40
PROVIDERS: ATTEND Specialist
DX: M51.36 Other intervertebral disc degeneration, lumbar region (principal); M47.816 Spondylosis without myelopathy or radiculopathy, lumbar region; G89.29 Other chronic pain; F17.200 Nicotine dependence, unspecified, uncomplicated; Z88.0 Allergy status to penicillin; Z88.6 Allergy status to analgesic agent
CPT/HCPCS: 99211

== ENCOUNTER 2022-10-23 10:55 | Day surgery (SDC) | payer OTHER ==
[2022-10-23 11:15] VITALS: RESP 18; TEMP 98.9
[2022-10-23] MEDS ORDERED: IOPAMIDOL M200 10 ML VIAL ONE (11:23)
[2022-10-23] MEDS ORDERED: methylPREDNISolone ACETATE 80 MG/ML 1 ML VIAL ONE (11:23)
--- NOTE | 2022-10-23 11:35 | P.PCN ---
Date of Procedure: 10/23/22 Procedure(s) Performed: PREOPERATIVE DIAGNOSIS: 1-Lumbar radiculopathy . 2-lumbar degenerative disc disease. 3-lumbar spondylosis with lumbar facet arthropathy without myelopathy POSTOPERATIVE DIAGNOSIS: 1-lumbar radiculopathy. 2-lumbar degenerative disc disease. 3-lumbar spondylosis with facet arthropathy without myelopathy PROCEDURE 1. Transforaminal epidural steroid injection under fluoroscopic guidance at bilateral L3-4 level. (Fluoroscopy images stored on file in the radiology Department ) 2. Lumbar epidurogram . ANESTHESIA: Local with 1% lidocaine 3 ml . EBL: Minimal PROCEDURE INDICATION: The patient with low back pain and radiculopathy symptoms unresponsive to conservative treatment. PROCEDURE DESCRIPTION / TECHNIQUE: The patient was seen and identified in the preoperative area. Risks, benefits, complications, and alternatives were discussed with the patient. The patient agreed to proceed with the procedure and signed the consent. IV was started, and vital signs were stable. Patient was taken to the OR and time out was completed. The patient was placed in the prone position on procedure table and a pillow was placed under the abdomen to reduce lumbar lordosis. The lumbosacral area was prepped and draped in the usual sterile fashion. Critical pause was taken. Vital signs were closely monitored during the procedure.. Using oblique fluoroscopy, the chin of the `Raghavy dog at right L3-4-5 level was identified, and the skin and deeper tissues just below was localized with 1% lidocaine. Subsequently, a 22-gauge 5-inch spinal needle was advanced under a tunneled view fluoroscopic guidance just underneath the chin of the `Raghavy dog at the right L3-4 Under lateral fluoroscopy, the needle was then advanced to the posterior border of the interforaminal space. After negative aspiration of CSF and blood and with no paresthesias, 1 mL Isovue 200 contrast dye was injected excellent epidurogram and outlining of the nerve root Subsequently, 3 mL of block solution containing 40 mg Depo-Medrol and 2 mL of 0.9% normal saline PF was injected. Needle was removed and the same procedure was repeated at the left L3-4 level . At the end of the procedure, skin was cleansed, and bandages were applied. COMPLICATIONS:none DISPOSITION / PLANS: The patient was placed in a supine position and transferred to the recovery area in a stable condition for observation. There was no evidence of lower extremity motor or sensory deficit after the procedure. Patient was discharged from the recovery room after meeting discharge criteria. Home discharge instructions were given to the patient by the staff. The patient was reexamined prior to discharge.
[2022-10-23 11:54] VITALS: BP 149/89; PULSE 78
--- NOTE | 2022-10-23 11:58 | FL ---
Intraoperative/procedural fluoroscopic services were provided for lumbar transforaminal injection. To elis fluoroscopy time is 20 seconds with a total of 2 submitted images to PACS. Total DAP 0.11 mGym2. Please see the operative note for further details.
== END 2022-10-23 11:54 | disposition home or self-care (01) ==
LOC: ORPAIN 10:55 → EEVIPCON 14:15
PROVIDERS: ATTEND Specialist
DX: M51.16 Intervertebral disc disorders with radiculopathy, lumbar region (principal); M47.26 Other spondylosis with radiculopathy, lumbar region; Z88.0 Allergy status to penicillin; Z88.1 Allergy status to other antibiotic agents
CPT/HCPCS: 64483; J1040; Q9966

== ENCOUNTER → 2023-09-24 | Outpatient (CLI) | payer OTHER ==
[2023-09-24 12:09] VITALS: BP 138/72; PULSE 76; RESP 15; TEMP 98.1
--- NOTE | 2023-09-24 14:33 | P.PAINPG ---
PQRS Measure Charge Sheet Comment: A 57 yr old female w daughter at side with a history of severe and chronic LBP secondary to lumbar DDD and spondylosis with facet arthropathy without myelopathy presents today for evaluation s/p BL TFESI L3-L4 #1. Pt states she experienced 75 % pain relief x 9 mo s/p procedure. Pain level is provoked at 6 /10 in intensity, constant, localized in the lumbar spine, predominantly axial, burning in character w occasional shooting towards the BL hips and RLE. Pain is provoked by standing/ sitting too long and over activity. Pain is alleviated with PT years ago and plans to return again, heat, medications, physician guided stretching & exercising daily, use of a TENS unit, repositioning and rest. Oswestry axial pain score of 26. Interventional pain procedures completed include ZEFERINO L3-4 x1, BL TFESI L3-L4 x1 (Oct 2022) Patient is currently on Tyl, Mobic, Neurontin Patient denies any side effects of the medication(s), denies excessive drowsiness or sleepiness, denies suicidal ideation and reports that the current pain medication is helping to control the pain and improve activities of daily living. Patient denies any motor or sensory deficits. Patient denies any fever or night sweats, denies any change in the bowel movements or urination. Physical Examination: -Constitutional: Cooperative. Not in acute distress . - Neurologic: Cranial nerve II to XII intact. No focal neurological deficits. - Psychatric: Alert & oriented x 3. Matching mood & appropriate affect. Judgment and insight intact. - Musculoskeletal: Cervical spine: Muscle bulk/ tone/ strength in the bilateral upper extremities normal Vertebral body tenderness to palpation over Spurling test positive Distraction test positive Facet loading test positive TTP Thoracic spine Muscle bulk / tone/ strength in the bilateral paraspinal muscles normal Vertebral body tender to palpation over Facet loading test positive TTP Lumbar spine: Motor bulk/ tone/ strength lower extremities , thigh and legs : 5/5 Deep tendon reflexes : Normal Knee Jerk. Normal Ankle Jerk . Vertebral body tenderness to palpation over L3 + Kearney Test positive BL L3-L4 Lumbar Facet Loading Test positive Straight Leg Raise: positive at 30 degrees right side/ left side Gaenslen's Test positive Sacral spine : Severe tenderness over the Sacroiliac joint: right side / left side Range of motion: Flexion of the lumbar spine <60 degrees Range of motion: Extension of the lumbar spine <20 degrees Gaenslen's Test positive right side / left side Darron test: positive right side / left side Thigh Thrust Test positive right side / left side Sacral Thrust Test positive right side / left side Assessment and plan: Chronic LBP secondary to lumbar DDD, spondylosis with facet arthropathy without myelopathy Recommendation of BL TFESI L3-L4 #2. May need a series of injections for optimal pain relief. Risks, benefits of procedure discussed and pt verbalized understanding. Admits to anticoagulant use or medical history of diabetes. Protocol for discontinuation/ continuation of medications matti procedure discussed. All questions answered. I have spent less than 30 minutes on patient care today. Dr Escobar was available by phone for the evaluation of this patient. The time was used to review the medical records including relevant urine studies and Prescription history (MAPs), review of the available imaging, evaluation and examination of the patient, coordination of care with the medical staff and if applicable referring physicians, as well as creation of the medical record - Pain Location Bilateral Lower Back Non-Pharmacological Interventions: Inactivity, Position/Reposition Pharmacological Interventions: Epidural PQRS Narrative: Smoking Status Current every day smoker Narcotic Agreement Date Signed 12/13/12 Hx Alcohol Use (MH) Yes: recoverning ETOH, drinks 2 beers every other night to relax Home Medications: Ambulatory Orders Folic Acid 1 mg PO DAILY 12/03/17 atenoloL [Tenormin] 25 mg PO QAM 12/03/17 Loperamide [Imodium] 2 mg PO TID PRN 04/05/19 Venlafaxine HCl ER [Effexor XR] 150 mg PO QAM 04/05/19 Meloxicam 15 mg PO QAM 04/03/21 Omeprazole 20 mg PO QAM 04/03/21 busPIRone HCL 10 mg PO DAILY PRN 04/03/21 Gabapentin [Neurontin] 100 mg PO BID 09/12/22 hydrOXYzine HCL [Atarax] 50 mg PO HS 06/19/23 diazePAM [Valium] 5 mg PO DAILY PRN 1 Days #2 tab 09/24/23 Controlled Substance Measures - Controlled Substance Measures Is patient prescribed a controlled substance at discharge?: Yes When asked, does pt state using other controlled substances?: No If prescribed controlled substance>3 days was MAPS reviewed?: Prescribed <3 Days
== END ==
LOC: PNWHC3 10:43
PROVIDERS: ATTEND Specialist
DX: M54.50 Low back pain, unspecified (principal); M51.36 Other intervertebral disc degeneration, lumbar region; M47.816 Spondylosis without myelopathy or radiculopathy, lumbar region; F17.200 Nicotine dependence, unspecified, uncomplicated; Z88.1 Allergy status to other antibiotic agents; Z88.0 Allergy status to penicillin
CPT/HCPCS: 99211

== ENCOUNTER → 2023-10-08 | Day surgery (SDC) | payer OTHER ==
[~2023-10-08] MED LIST changes: +DEXAMETHASONE SOD PHOSPHATE 10 MG/ML 1 ML VIAL ONE; +IOPAMIDOL M200 10 ML VIAL ONE
--- NOTE | 2023-10-08 09:25 | P.PCN ---
Date of Procedure: 10/08/23 Description of Procedure: PREOPERATIVE DIAGNOSIS: Lumbar radiculopathy POSTOPERATIVE DIAGNOSIS: Lumbar radiculopathy PROCEDURE 1. Transforaminal epidural steroid injection under fluoroscopic guidance bilateral L3-L4 2. Lumbar epidurogram IMAGING Fluoroscopy was used, images where saved to the medical record ANESTHESIA: local only EBL: Minimal PROCEDURE DESCRIPTION / TECHNIQUE: The patient was seen and identified in the preoperative area. Risks, benefits, complications, and alternatives were discussed with the patient. The patient agreed to proceed with the procedure and signed the consent, vital signs were stable prior to the procedure. Patient was taken to the OR and time out was completed. The patient was placed in the prone position on procedure table and a pillow was placed under the abdomen to reduce lumbar lordosis. The lumbosacral area was prepped and draped in the usual sterile fashion. Vital signs were closely monitored during the procedure. Conscious sedation was used. Using oblique fluoroscopy, the chin of the "[place] dog" at the pedicle and the skin and deeper tissues just below was localized with 1% lidocaine. Subsequently, a 22-gauge 3.5-inch spinal needle was advanced under a tunneled view fluoroscopic guidance just underneath the chin of the "[place] dog". Under lateral fluoroscopy, the needle was then advanced to the posterior border interforaminal space. After negative aspiration of CSF and blood and with no paresthesias, 1 mL of Omnipaque-240 contrast dye was injected excellent epidurog ignacio. Subsequently, a solution totalling 2ml of dexamethasone and PFNS was injected after negative aspiration (total of 10mg of dexamethasone was used). The needle was removed intact. COMPLICATIONS: None DISPOSITION: The patient was placed in a supine position and transferred to the recovery area in a stable condition for observation. There was no evidence of lower extremity motor or sensory deficit after the procedure. Patient was discharged from the recovery room after meeting discharge criteria. Home discharge instructions were given to the patient by the staff. The patient was reexamined prior to discharge. Follow up as directed.
--- NOTE | 2023-10-08 09:41 | FL ---
EXAMINATION TYPE: FL guided pain mgmt statistic DATE OF EXAM: 10/08/2023 HISTORY: Fluoroscopy time Total dose area product (DAP) in uGy*m?, mGy*cm? (or similar): 0.45107 IMPRESSION: 1. Fluoroscopy time.
[2023-10-08 09:43] VITALS: RESP 16; TEMP 98.4
[2023-10-08 09:44] VITALS: BP 111/70; PULSE 66
== END ==
LOC: ORPAIN 08:45
PROVIDERS: ATTEND Hospitalist
DX: M54.16 Radiculopathy, lumbar region (principal); Z88.0 Allergy status to penicillin; Z88.1 Allergy status to other antibiotic agents
CPT/HCPCS: 64483; J1100; Q9966

== ENCOUNTER → 2024-02-03 | Outpatient (CLI) | payer OTHER ==
[2024-02-03 12:54] VITALS: BP 111/73; PULSE 97; RESP 16; TEMP 97.1
--- NOTE | 2024-02-03 15:32 | P.PAINPG ---
PQRS Measure Charge Sheet Comment: A 58 yr old female w daughter at side with a history of severe and chronic LBP secondary to radiculopathy, spondylosis and facet arthropathy without myelopathy presents today for evaluation s/p BL TFESI L3-L4 #2. Pt states she experienced 95 % pain relief x 3 mo s/p procedure. Pain level is provoked at 7 /10 in intensity, constant, localized in the lumbar spine, predominantly axial, burning in character w occasional shooting towards the BL hips and LEs. Pain is provoked by standing/ sitting too long and over activity. Pain is alleviated with PT years ago and plans to return again, heat, medications, physician guided stretching & exercising daily, use of a TENS unit, repositioning and rest. Interventional pain procedures completed include ZEFERINO L3-4 x1, BL TFESI L3-L4 x2 (Oct 2022, September 2023) Patient is currently on Tyl, Mobic, Neurontin Patient denies any side effects of the medication(s), denies excessive drowsiness or sleepiness, denies suicidal ideation and reports that the current pain medication is helping to control the pain and improve activities of daily living. Patient denies any motor or sensory deficits. Patient denies any fever or night sweats, denies any change in the bowel movements or urination. Physical Examination: -Constitutional: Cooperative. Not in acute distress . - Neurologic: Cranial nerve II to XII intact. No focal neurological deficits. - Psychatric: Alert & oriented x 3. Matching mood & appropriate affect. Judgment and insight intact. - Musculoskeletal: Cervical spine: Muscle bulk/ tone/ strength in the bilateral upper extremities normal Vertebral body tenderness to palpation over Spurling test positive Distraction test positive Facet loading test positive TTP Thoracic spine Muscle bulk / tone/ strength in the bilateral paraspinal muscles normal Vertebral body tender to palpation over Facet loading test positive TTP Lumbar spine: Motor bulk/ tone/ strength lower extremities , thigh and legs : 5/5 Deep tendon reflexes : Normal Knee Jerk. Normal Ankle Jerk . Vertebral body tenderness to palpation over L3 Kearney Test positive BL L3-L4 Lumbar Facet Loading Test positive Straight Leg Raise: positive at 30 degrees right side/ left side Gaenslen's Test positive Sacral spine : Severe tenderness over the Sacroiliac joint: right side / left side Range of motion: Flexion of the lumbar spine <60 degrees Range of motion: Extension of the lumbar spine <20 degrees Gaenslen's Test positive right side / left side Darron test: positive right side / left side Thigh Thrust Test positive right side / left side Sacral Thrust Test positive right side / left side Assessment and plan: Chronic LBP secondary to radiculopathy, spondylosis with facet arthropathy without myelopathy Recommendation of BL TFESI L3-L4 #3. TENS unit script provided M54.16 . May need a series of injections for optimal pain relief. Risks, benefits of procedure discussed and pt verbalized understanding. Admits to anticoagulant use or medical history of diabetes. Protocol for discontinuation/ continuation of medications matti procedure discussed. All questions answered. I have spent less than 30 minutes on patient care today. Dr Escobar was available by phone for the evaluation of this patient. The time was used to review the medical records including relevant urine studies and Prescription history (MAPs), review of the available imaging, evaluation and examination of the patient, coordination of care with the medical staff and if applicable refe rring physicians, as well as creation of the medical record PQRS Narrative: Smoking Status Current every day smoker Narcotic Agreement Date Signed 12/13/12 Hx Alcohol Use (MH) Yes: recoverning ETOH, drinks 2 beers every other night to relax Home Medications: Ambulatory Orders Folic Acid 1 mg PO DAILY 12/03/17 atenoloL [Tenormin] 25 mg PO QAM 12/03/17 Venlafaxine HCl ER [Effexor XR] 150 mg PO QAM 04/05/19 Meloxicam 15 mg PO QAM 04/03/21 Omeprazole 20 mg PO QAM 04/03/21 busPIRone HCL 10 mg PO DAILY PRN 04/03/21 Gabapentin [Neurontin] 100 mg PO BID 09/12/22 hydrOXYzine HCL [Atarax] 50 mg PO HS 06/19/23 diazePAM [Valium] 5 mg PO DAILY PRN 1 Days #2 tab 02/03/24 Controlled Substance Measures - Controlled Substance Measures Is patient prescribed a controlled substance at discharge?: Yes When asked, does pt state using other controlled substances?: Yes If prescribed controlled substance>3 days was MAPS reviewed?: Prescribed <3 Days
== END ==
LOC: PNWHC3 09:56
PROVIDERS: ATTEND Specialist
DX: G89.4 Chronic pain syndrome
CPT/HCPCS: 99211

== ENCOUNTER 2024-03-10 12:25 | Day surgery (SDC) | payer OTHER ==
[2024-03-09 11:15] VITALS: BMI 30.7
[~2024-03-10 12:25] MED LIST changes: -DEXAMETHASONE SOD PHOSPHATE 10 MG/ML 1 ML VIAL ONE; -IOPAMIDOL M200 10 ML VIAL ONE
[2024-03-10 13:20] VITALS: TEMP 97.1
[2024-03-10] MEDS ORDERED: IOPAMIDOL M200 10 ML VIAL ONE (13:30)
[2024-03-10] MEDS ORDERED: methylPREDNISolone ACETATE 80 MG/ML 1 ML VIAL ONE (13:30)
--- NOTE | 2024-03-10 13:42 | P.PCN ---
Date of Procedure: 03/10/24 Procedure(s) Performed: PREOPERATIVE DIAGNOSIS: 1-Lumbar radiculopathy . 2-lumbar degenerative disc disease. 3-lumbar spondylosis with lumbar facet arthropathy without myelopathy POSTOPERATIVE DIAGNOSIS: 1-lumbar radiculopathy. 2-lumbar degenerative disc disease. 3-lumbar spondylosis with facet arthropathy without myelopathy PROCEDURE 1. Transforaminal epidural steroid injection under fluoroscopic guidance at bilateral L3-4 level. (Fluoroscopy images stored on file in the radiology Department ) 2. Lumbar epidurogram . ANESTHESIA: Local with 1% lidocaine 3 ml . EBL: Minimal PROCEDURE INDICATION: The patient with low back pain and radiculopathy symptoms unresponsive to conservative treatment. PROCEDURE DESCRIPTION / TECHNIQUE: The patient was seen and identified in the preoperative area. Risks, benefits, complications, and alternatives were discussed with the patient. The patient agreed to proceed with the procedure and signed the consent. IV was started, and vital signs were stable. Patient was taken to the OR and time out was completed. The patient was placed in the prone position on procedure table and a pillow was placed under the abdomen to reduce lumbar lordosis. The lumbosacral area was prepped and draped in the usual sterile fashion. Critical pause was taken. Vital signs were closely monitored during the procedure.. Using oblique fluoroscopy, the chin of the `Raghavy dog at right L3-4-5 level was identified, and the skin and deeper tissues just below was localized with 1% lidocaine. Subsequently, a 22-gauge 5-inch spinal needle was advanced under a tunneled view fluoroscopic guidance just underneath the chin of the `Raghavy dog at the right L3-4 Under lateral fluoroscopy, the needle was then advanced to the posterior border of the interforaminal space. After negative aspiration of CSF and blood and with no paresthesias, 1 mL Isovue 200 contrast dye was injected excellent epidurogram and outlining of the nerve root Subsequently, 3 mL of block solution containing 40 mg Depo-Medrol and 2 mL of 0.9% normal saline PF was injected. Needle was removed and the same procedure was repeated at the left L3-4 level . At the end of the procedure, skin was cleansed, and bandages were applied. COMPLICATIONS:none DISPOSITION / PLANS: The patient was placed in a supine position and transferred to the recovery area in a stable condition for observation. There was no evidence of lower extremity motor or sensory deficit after the procedure. Patient was discharged from the recovery room after meeting discharge criteria. Home discharge instructions were given to the patient by the staff. The patient was reexamined prior to discharge.
--- NOTE | 2024-03-10 13:54 | FL ---
EXAMINATION TYPE: FL guided pain mgmt statistic DATE OF EXAM: 03/10/2024 1:48 PM COMPARISON: Pre Operative Images if available both CT/MRI or plain film CLINICAL INDICATION: Female, 59 years old with history of Transforaminal Inj; TECHNIQUE: FL guided pain mgmt statistic, multiple fluoroscopic images provided for procedure. Total fluoroscopy time: 21.8 seconds Total submitted images to PACS: 3 DAP: [id number] mGym2 Gycm2 uGym2 cGycm2 or equivalent. FINDINGS: Fluoroscopic images during injection for pain management demonstrate multilevel degeneration changes throughout the spine. No evidence for fracture. No acute process identified. IMPRESSION: 1. No evidence for intraoperative complication. 2. Please see the operative/procedural note for further details. [facility], , 03/10/2024 1:51 PM
[2024-03-10 14:34] VITALS: RESP 18
[2024-03-10 14:36] VITALS: BP 148/89; PULSE 79
== END 2024-03-10 14:28 | disposition home or self-care (01) ==
LOC: ORPAIN 12:25
PROVIDERS: ATTEND Specialist
DX: M51.16 Intervertebral disc disorders with radiculopathy, lumbar region (principal); M47.26 Other spondylosis with radiculopathy, lumbar region
CPT/HCPCS: 64483; Q9966; J1010

== ENCOUNTER → 2024-11-28 | Outpatient (CLI) | payer OTHER ==
[2024-11-28 15:27] VITALS: BP 107/69; PULSE 75; RESP 17
--- NOTE | 2024-11-28 17:34 | P.PAINPG ---
Objective - Vital Signs Vital signs: Intake & Output 11/27/24 11/28/24 11/28/24 18:59 06:59 18:59 Weight 88.904 kg PQRS Measure Charge Sheet Comment: A 59 yr old female w daughter at side with a history of severe and chronic LBP secondary to radiculopathy, spondylosis and facet arthropathy without myelopathy presents today for evaluation s/p BL TFESI L3-L4 #3. Pt states she experienced 80 % pain relief x 6 mo s/p procedure. Pain level is provoked at 7 /10 in intensity, constant, localized in the lumbar spine, predominantly axial, burning in character w occasional shooting towards the BL hips and LEs. Pain is provoked by standing/ sitting too long and over activity. Pain is alleviated with PT years ago and plans to return again, heat, medications, physician guided stretching & exercising daily, use of a TENS unit, repositioning and rest. Interventional pain procedures completed include ZEFERINO L3-4 x1, BL TFESI L3-L4 x3 (Oct 2022, September 2023, Feb 2024) Patient is currently on Tyl, Mobic, Neurontin Patient denies any side effects of the medication(s), denies excessive drowsiness or sleepiness, denies suicidal ideation and reports that the current pain medication is helping to control the pain and improve activities of daily living. Patient denies any motor or sensory deficits. Patient denies any fever or night sweats, denies any change in the bowel movements or urination. Physical Examination: -Constitutional: Cooperative. Not in acute distress . - Neurologic: Cranial nerve II to XII intact. No focal neurological deficits. - Psychatric: Alert & oriented x 3. Matching mood & appropriate affect. Judgment and insight intact. - Musculoskeletal: Cervical spine: Muscle bulk/ tone/ strength in the bilateral upper extremities normal Vertebral body tenderness to palpation over Spurling test positive Distraction test positive Facet loading test positive TTP Thoracic spine Muscle bulk / tone/ strength in the bilateral paraspinal muscles normal Vertebral body tender to palpation over Facet loading test positive TTP Lumbar spine: Motor bulk/ tone/ strength lower extremities , thigh and legs : 5/5 Deep tendon reflexes : Normal Knee Jerk. Normal Ankle Jerk . Vertebral body tenderness to palpation over L3 [place] Test positive BL L3-L4 Lumbar Facet Loading Test positive Straight Leg Raise: positive at 30 degrees right side/ left side Gaenslen's Test positive Sacral spine : Severe tenderness over the Sacroiliac joint: right side / left side Range of motion: Flexion of the lumbar spine <60 degrees Range of motion: Extension of the lumbar spine <20 degrees Gaenslen's Test positive right side / left side Darron test: positive right side / left side Thigh Thrust Test positive right side / left side Sacral Thrust Test positive right side / left side Assessment and plan: Chronic LBP secondary to radiculopathy, spondylosis with facet arthropathy without myelopathy Recommendation of BL TFESI L3-L4 #1. Risks, benefits of procedure discussed and pt verbalized understanding. All questions answered. I have spent less than 30 minutes on patient care today. Dr Escobar was available by phone for the evaluation of this patient. The time was used to review the medical records including relevant urine studies and Prescription history (MAPs), review of the available imaging, evaluation and examination of the patient, coordination of care with the medical staff and if applicable referring physicians, as well as creation of the medical record PQRS Narrative: Smoking Status Current every day smoker Narcotic Agreement Date Signed 12/13/12 Hx Alcohol Use (MH) Yes: recoverning ETOH, drinks 2 beers every other night to relax Home Medications: Ambulatory Orders Folic Acid 1 mg PO DAILY 12/03/17 atenoloL [Tenormin] 25 mg PO QAM 12/03/17 Venlafaxine HCl ER [Effexor XR] 150 mg PO QAM 04/05/19 Meloxicam 15 mg PO QAM 04/03/21 Omeprazole 20 mg PO QAM 04/03/21 busPIRone HCL 10 mg PO DAILY PRN 04/03/21 Gabapentin [Neurontin] 100 mg PO BID 09/12/22 hydrOXYzine HCL [Atarax] 50 mg PO HS 06/19/23 diazePAM [Valium] 10 mg PO DAILY PRN 03/10/24 Controlled Substance Measures - Controlled Substance Measures Is patient prescribed a controlled substance at discharge?: No
== END ==
LOC: PNWHC3 14:09
PROVIDERS: ATTEND Specialist
DX: M47.26 Other spondylosis with radiculopathy, lumbar region (principal); F17.200 Nicotine dependence, unspecified, uncomplicated; Z88.0 Allergy status to penicillin; Z88.1 Allergy status to other antibiotic agents
CPT/HCPCS: 99212